=== PATIENT | male | born 1955 | race Caucasian/White ===

== ENCOUNTER 2018-09-09 19:23 | Emergency (ER) | payer BC, SELFPAY ==
[2018-09-09 19:24] VITALS: BP 148/23; PULSE 68; RESP 14; TEMP 36.9; O2SAT 96; BMI 22.0
--- NOTE | 2018-09-09 19:40 | RAD_ITS ---
STUDY: X-RAY - LEFT HAND REASON FOR EXAM: Male, 63 years old. Pain. Fall. TECHNIQUE: 3 view(s) of the hand. COMPARISON: None. FINDINGS: Normal radiocarpal articulation. Normal distal radioulnar joint. Normal visualized carpal bones. Normal carpal articulations There is degenerative arthrosis of the carpometacarpal (CMC) articulation of the thumb. Normal second through fifth carpometacarpal joints. There is a mildly displaced fracture of base of fifth metacarpal. Arthrosis of the metacarpophalangeal joint of the thumb. Normal interphalangeal joint of the thumb. Normal proximal and distal phalanges of the thumb. Normal metacarpophalangeal joints of the second through fifth fingers. Normal proximal and distal interphalangeal joints of the second through fifth fingers. Normal phalanges of the second through fifth fingers. The soft tissue structures are unremarkable. RAD/Hand Min 3 Views IMPRESSION: Fifth metacarpal fracture. Electronically Signed: Lloyd Brown MD at 20:10 EDT , Service support ,
--- NOTE | 2018-09-09 20:00 | RAD_ITS ---
STUDY: X-RAY - RIGHT HAND REASON FOR EXAM: Male, 63 years old. Pain. TECHNIQUE: 4 view(s) of the hand. COMPARISON: None. FINDINGS: There is joint space narrowing of the radiocarpal articulation consistent with degenerative arthrosis. Widening of the distal radioulnar joint. There is healed distal ulna fracture. Normal visualized carpal bones. Normal carpal articulations There is degenerative arthrosis of the carpometacarpal (CMC) articulation of the thumb. Normal second through fifth carpometacarpal joints. There is angulation with fracture at the base of the fifth metacarpal. Normal metacarpophalangeal joint of the thumb. Normal interphalangeal joint of the thumb. Normal proximal and distal phalanges of the thumb. Normal metacarpophalangeal joints of the second through fifth fingers. Normal proximal and distal interphalangeal joints of the second through fifth fingers. Normal phalanges of the second through fifth fingers. The soft tissue structures are unremarkable. RAD/Hand Min 3 Views IMPRESSION: Fifth metacarpal fracture. Healed fracture of the distal ulna. Electronically Signed: Lloyd Brown MD at 20:15 EDT , Service support ,
[2018-09-09 22:00] VITALS: BP 143/94; PULSE 78; RESP 16; O2SAT 97
--- NOTE | 2018-09-09 23:13 | ED.DCSUM_ITS ---
- ER Visit Summary Date of Service: 09/09/18 Chief Complaint: Fall History of Present Illness: The patient is a 63 M who presents with fall that occurred today. Patient states she has a history of Parkinson's disease and falls frequently. Patient fell onto both hands. Patient states that pain in his right hand radiates into his right forearm. Patient hit his head but denies any loss of consciousness. Patient is not on any anticoagulants. Patient does admit to a mild frontal headache. Patient patient denies any nausea or vomiting. She denies any paresthesias or weakness. Patient denies any other injuries. Physical Examination: Vital signs are stable. Patient is afebrile. Patient is in no acute distress. Musculoskeletal exam reveals tenderness, edema, and ecchymosis over the fifth metacarpal of the left hand. There is also tenderness over the fifth metacarpal of the right hand and right forearm. There is no edema or ecchymosis noted over this hand or forearm. Radial pulses are equal bilateral. Sensation was intact to light touch in all digits. Capillary refill was less than 2 seconds in all digits. Patient has some chorea movements in both upper extremities. Skin is warm and dry. There are abrasions over the nose and upper lip. There are multiple dental caries. There are dental fractures of the upper incisors. Oropharynx is clear. Neck is supple. Trachea is midline. There is no JVD noted. Test Results: X-rays of both hands were obtained. There are fractures of the fifth metacarpals bilaterally at the bases. The left hand is more displaced than the right. O Emergency Department Course and Treatment: Patient was placed in an ulnar gutter splint on the left. Patient was placed in a Velcro wrist splint on the right. Patient was instructed to follow-up with his orthopedic surgeon at the [facility] in 3 to 5 days. Patient and family understood and were agreeable with the plan. All questions were answered. Disposition: Discharge home Impression: 1. Bilateral fifth metacarpal fractures 2. Facial abrasions This note was generated with [employer] dictation software. It may contain incorrect words, spelling, and punctuation that were not noted in review of the chart prior to signing ED Disposition - Plan for ED Patient: Disposition: Home or Assisted Living Diagnosis: Fracture of fifth metacarpal bone of left hand, Fracture of fifth metacarpal bone of right hand, Facial abrasion Instructions: ED Fx Hand Closed Referrals: Care Physician,No Primary [Primary Care Provider] -
[2018-09-09 23:31] VITALS: PULSE 79; RESP 22; O2SAT 98
--- NOTE | 2018-09-09 23:32 | ED.RN ---
THIS NURSE REVIEWED D/C INSTRUCTIONS WITH PT AND VISITORS. ALL VERBALIZED UNDERSTANDING OF INSTRUCTIONS. PT DENIES FURTHER NEEDS OR QUESTIONS AT THIS TIME. PT ASSISTED TO VEHICLE VIA W/C
== END 2018-09-09 23:33 | disposition home or self-care (01) ==
PROVIDERS: Emergency Provider Emergency Medicine
DX: S62.346A Nondisplaced fracture of base of fifth metacarpal bone, right hand, initial encounter for closed fracture (principal); S62.317A Displaced fracture of base of fifth metacarpal bone, left hand, initial encounter for closed fracture; S00.31XA Abrasion of nose, initial encounter; S00.511A Abrasion of lip, initial encounter; G20 Parkinson's disease; R29.6 Repeated falls; Z91.81 History of falling; W18.30XA Fall on same level, unspecified, initial encounter; Y93.89 Activity, other specified; Y92.009 Unspecified place in unspecified non-institutional (private) residence as the place of occurrence of the external cause; Y99.8 Other external cause status
CPT/HCPCS: 73130; 99283

== ENCOUNTER 2018-10-13 20:55 | Emergency (ER) | payer MEDICARE, SELFPAY ==
[2018-10-13 20:57] VITALS: PULSE 63; RESP 16; TEMP 36.9; O2SAT 95; BMI 22.0
--- NOTE | 2018-10-13 22:15 | RAD_ITS ---
HISTORY: PPainRAD - Ribs EXAMINATION/TECHNIQUE: XR Ribs Unilateral W/ PA Chest Min 3 Views: Left COMPARISON: June 22, 2016 FINDINGS: LINES/DEVICES: None. LUNGS: No consolidation, edema or effusion. No pneumothorax. MEDIASTINUM AND CARDIOVASCULAR STRUCTURES: Cardiac silhouette not enlarged. Central airways and mediastinal contour are unremarkable. RIBS AND OSSEOUS STRUCTURES: The anterior margin of the T9 rib is slightly irregular consistent with a nondisplaced fracture RAD/Ribs Uni Min 3V w/PA Chest IMPRESSION: Anterior left T9 rib fracture. at 1735 Reported and signed by: Jree Vieyra MD Electronically Signed: Jere Vieyra MD at 22:44 EDT Tel , Service support ,
[2018-10-13] MEDS: Ibuprofen 600 MG Tablet PO (22:25)
--- NOTE | 2018-10-13 22:54 | ED.VIS.GEN ---
History of Present Illness Chief Complaint: Chest Other Informant: Patient Onset: Yesterday Narrative: Pain left anterior rib since yesterday. Denies trauma. Denies cough. History of rib fracture in the past. Denies fever or rash. Denies history of kidney injury or gastric ulcers. Prior similar symptoms: Yes Past Medical History - Allergies and Home Meds Allergies/Adverse Reactions: Allergies No Known Allergies Allergy (Verified 06/22/16 20:34) Primary Care Physician: Care Physician,No Primary [Primary Care Provider] - Smoking Status: Never smoker - Family History Maternal Family History: Reports: No pertinent history Review of Systems General: Denies: Chills, Fever, Sweats Eyes: Denies: Visual changes - bilaterally, Diplopia ENT: Denies: Rhinorrhea, Sore throat Cardiovascular: Denies: Chest pain, Palpitations Respiratory: Denies: Dyspnea, Cough, Dyspnea on exertion Gastrointestinal: Denies: Abdominal pain, Nausea, Vomiting, Diarrhea, Melena, Hematochezia Genitourinary: Denies: Dysuria, Hematuria, Frequency Musculoskeletal: Denies: Back pain, Extremity Pain Skin: Denies: Rash, Wounds Neurological: Denies: Headache, Weakness, Numbness Physical Exam Vital Signs/Narrative: Vital Signs Temp Pulse Resp Pulse Ox 10/13/18 20:57 98.4 F 63 16 95 Inital Vital Signs reviewed: Yes General: Well nourished, Well developed, No Acute Distress Head: Normocephalic, Atraumatic Eyes: Perrl, EOMI ENT: Moist mucous membranes, No rhinorrhea Neck: Supple, Nontender Cardiovascular: Regular rate, Regular rhythm, No murmurs Respiratory: No distress, CTA bilaterally, Chest nontender, Chest tenderness, - - Tender palpation left anterior ribs with no crepitus. Symmetric breath sounds. No rash. Abdomen: Soft, Nontender, Nondistended, Normal bowel sounds Back: Nontender, Normal Inspection Extremities: Nontender, No edema Skin: Normal color, No rash Neurological: Alert, Oriented x3, Cranial nerves II-XII grossly intact, Normal Strength, Normal Sensation Psychological: Normal affect, Normal Mood Diagnostic/Tx/Re-eval Left rib series: Nondisplaced anterior ninth rib fracture - Medical Decision Making Patient treated with Motrin, x-rays obtained nondisplaced ninth rib fracture. Denies any trauma or cough. Discussed symptomatic treatment with continued NSAIDs as needed. Discussed taking deep breaths. Follow-up with his PCP. All questions were answered. ED Disposition - Plan for ED Patient: Disposition: Home or Assisted Living Diagnosis: Left rib fracture Instructions: ED Fx Rib Prescriptions: Ibuprofen 600 mg PO Q6H PRN PRN #30 tablet PRN Reason: Pain Referrals: Care Physician,No Primary [Primary Care Provider] - 5-7 Days Additional Instructions: Left nondisplaced anterior ninth rib fracture.
[2018-10-13 23:13] VITALS: BP 128/76; PULSE 83; RESP 20; O2SAT 98
== END 2018-10-13 23:14 | disposition home or self-care (01) ==
PROVIDERS: Emergency Provider Emergency Medicine
DX: S22.32XA Fracture of one rib, left side, initial encounter for closed fracture (principal); X58.XXXA Exposure to other specified factors, initial encounter; Y93.89 Activity, other specified; Y92.89 Other specified places as the place of occurrence of the external cause; Y99.8 Other external cause status
CPT/HCPCS: 71101; 99283

== ENCOUNTER 2018-12-16 14:42 | Emergency (ER) | payer MEDICARE, SELFPAY ==
[2018-12-16 14:44] VITALS: BP 140/95; PULSE 52; RESP 16; TEMP 36.8; O2SAT 94; BMI 21.6
--- NOTE | 2018-12-16 15:31 | ED.VISSUMM ---
- ER Visit Summary Date of Service: 12/16/18 Chief Complaint: Neck pain History of Present Illness: The patient is a 63 M with right-sided neck pain for 3 weeks. Denies any inciting injury. Worse with movement. Nothing seems to make it better. No associated neurologic symptoms. No chest pain or shortness of breath. No history of this. No spine pain. No rashes. Physical Examination: Afebrile and vital signs unremarkable. Head and neck unremarkable. Right trapezius tender to palpation. Right arm unremarkable. Heart regular. Lungs clear. Skin appears normal. Test Results: None indicated Emergency Department Course and Treatment: Patient has a right trapezius myofascial pain. He was treated with naproxen and Flexeril. Follow-up with primary care. Treatment Plan: Disposition: Discharge Impression: 1. Right trapezius pain This note was generated with [employer] dictation software. It may contain incorrect words, spelling, and punctuation that were not noted in review of the chart prior to signing ED Disposition - Plan for ED Patient: Referrals: Care Physician,No Primary [Primary Care Provider] -
--- NOTE | 2018-12-16 15:33 | ED.DEP ---
ED Disposition - Plan for ED Patient: Instructions: BACK SPASM, No Trauma Prescriptions: cycloBENZAPRine HCl [Flexeril] 10 mg PO TID PRN #20 tab PRN Reason: Muscle Spasm Prescription Printed Naproxen [Naprosyn] 500 mg PO BID PRN #20 tab Prescription Printed Referrals: Care Physician,No Primary [Primary Care Provider] -
[2018-12-16] MEDS: Naproxen 500 MG Tablet PO (15:38)
[2018-12-16] MEDS: cycloBENZAPRine HCl 10 MG Tablet PO (15:38)
== END 2018-12-16 15:57 | disposition home or self-care (01) ==
PROVIDERS: Emergency Provider Emergency Medicine
DX: M79.18 Myalgia, other site (principal); G20 Parkinson's disease
CPT/HCPCS: 99283

== ENCOUNTER 2018-12-25 19:44 | Emergency (ER) | payer MEDICARE, SELFPAY ==
[2018-12-25 19:46] VITALS: BP 145/76; PULSE 80; RESP 18; TEMP 36.8; O2SAT 97; BMI 21.6
--- NOTE | 2018-12-25 20:10 | CT_ITS ---
STUDY: CT CERVICAL SPINE WITHOUT CONTRAST REASON FOR EXAM: Male, 63 years old. Right-sided neck pain RADIATION DOSAGE (If Supplied By Facility): CTDIvol = ( 9.39 ) mGy, DLP = ( 203.58 ) mGycm TECHNIQUE: High resolution transaxial imaging was performed without contrast material. Sagittal and coronal images were reconstructed. Individualized dose optimization techniques were used for this CT. COMPARISON: March 06, 2014 cervical spine radiograph FINDINGS: Mild spondylosis. Normal craniovertebral junction. Normal anterior atlantoaxial articulation. Normal odontoid process. Normal cervical lordosis. Normal vertebral bodies and posterior osseous elements. C2-3: Normal endplates. Normal disc height and morphology. Normal central canal and intervertebral neuroforamina. C3-4: Normal endplates. Normal disc height and morphology. Normal central canal and intervertebral neuroforamina. C4-5: Normal endplates. Normal disc height and morphology. Normal central canal and intervertebral neuroforamina. C5-6: Normal endplates. Normal disc height and morphology. Normal central canal and intervertebral neuroforamina. C6-7: Normal endplates. Normal disc height and morphology. Normal central canal and intervertebral neuroforamina. C7-T1: Normal endplates. Normal disc height and morphology. Normal central canal and intervertebral neuroforamina. Normal visualized soft tissue structures. CT/Spine Cervical without Contras IMPRESSION: No fracture Electronically Signed: Jnui Aguero MD at 20:35 EDT , Service support ,
--- NOTE | 2018-12-25 20:41 | ED.VISSUMM ---
- ER Visit Summary Date of Service: 12/25/18 Chief Complaint: Neck pain History of Present Illness: The patient is a 63 M who presents with neck pain that has been getting worse over the past 3 to 4 weeks. Patient denies any trauma or injury. Patient states pain is worse over the right paraspinal area. Patient describes the pain as sharp. Patient states the pain is worse when he bends his neck to the right. Patient states he was given muscle relaxers in the past which seemed to help. Patient states she is also given pain patches in the past which seemed to help. Patient denies any radiation of the pain. Patient denies any paresthesias or weakness. Patient admits to some nausea but denies any vomiting. Patient also admits to mild headache. Physical Examination: Vital signs are stable. Patient is afebrile. Patient is in no acute distress. Musculoskeletal exam reveals tenderness over the right cervical paraspinal muscles. There is some mild midline tenderness. There is no bony crepitance or step-off. There is no tenderness over the clavicle or AC joint. Range of motion of the cervical spine was limited in right side bending and right rotation secondary to pain. Strength is 5/5 bilateral knee upper and lower extremities. There are no sensory deficits noted. Test Results: CT scan of the cervical spine was obtained. There is no acute fracture or spondylolisthesis noted. This was interpreted by the radiologist and myself. Emergency Department Course and Treatment: Patient was given another prescription for Flexeril. Patient was instructed to follow-up with his primary care physician in 5 to 7 days for reevaluation. Patient understood and was agreeable with the plan. All questions were answered. Disposition: Discharge home Impression: Acute cervical strain This note was generated with [employer] dictation software. It may contain incorrect words, spelling, and punctuation that were not noted in review of the chart prior to signing ED Disposition - Plan for ED Patient: Disposition: Home or Assisted Living Diagnosis: Acute cervical myofascial strain Instructions: Neck Sprain/Strain Prescriptions: cycloBENZAPRine HCl [Flexeril] 10 mg PO QHS PRN PRN #10 tab PRN Reason: Muscle Spasm Prescription Printed Referrals: Care Physician,No Primary [Primary Care Provider] - 5-7 Days
[2018-12-25 20:50] VITALS: BP 141/70; PULSE 80; RESP 14; O2SAT 98
== END 2018-12-25 21:00 | disposition home or self-care (01) ==
PROVIDERS: Emergency Provider Emergency Medicine
DX: S16.1XXA Strain of muscle, fascia and tendon at neck level, initial encounter (principal); G20 Parkinson's disease; X58.XXXA Exposure to other specified factors, initial encounter; Y93.89 Activity, other specified; Y92.89 Other specified places as the place of occurrence of the external cause; Y99.8 Other external cause status
CPT/HCPCS: 72125; 99283

== ENCOUNTER 2023-06-10 18:10 | Emergency (ER) | payer MEDICARE, SELFPAY ==
[2023-06-10 18:12] VITALS: BP 146/101; PULSE 104; RESP 18; TEMP 36.4; O2SAT 100
[2023-06-10 22:13] VITALS: BMI 23.1
[2023-06-10 22:29] VITALS: BP 161/98
--- OUTSIDE RECORDS SUMMARY | 2023-06-10 22:45 | XMS RPT_ITS | CCD ---
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 Billing Therapeutic Exercise Treatment Minutes: 41 Skilled Treatment Time Minutes (timed and untimed codes): 41 Total Session Time (minutes): 41 Session Start Time : 1449 Session Stop Time : 1530 Aaron Atkinson, SPT I attest that I was present, not working on other tasks, and directing the student during this visit. I have reviewed and agree with the above documentation of this student. Savanah Kern, PT, DPT [facility] 06-03-2023 Note HNO ID: [id number] Author: CARMENZA HAM CCC-WIRE BOUND BOX MACHINE HELPER Service: ? 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 BOX MACHINE HELPER Recommendations: Outpatient Speech Therapy Results and Recommendations Discussed With: Patient PLAN: Planned Interventions, Frequency, and Duration: Planned Treatment Interventions: Dysarthria/Apraxia Reduction Training (17243, 04137), Voice Training (54041), Patient / Caregiver Education/ Training Current Frequency: 1x/week Duration: 6 weeks PLAN FOR NEXT VISIT: respiratory support exercises, oral motor exercises, training in use of compensatory strategies for increased speech/voice abilities SUBJECTIVE: Patient is accompanied to therapy by his brother who chooses to wait in lobby for session. -Patient admits to not diligently practicing speech/voice exercises at home, reports 'I do it here and there. Sometimes' OBJECTIVE: MEASURES WITH LEVEL OF FUNCTION: Professional training and skilled instructions were provided as follows: Voicing Hygiene -Vocal Function/respiratory training -sustaining vowel sounds a,oh, oo, aw-maximum phonation time 12 seconds (7-12 seconds) -respiratory training including counting on one breath-moderate visual cues, demonstration and verbal cues provided to increase accuracy with completing task -Demonstration/instruction provided by ST to maximize pt ability to complete labial seal during inhalation and open mouth exhalation to maximize volume/voice abilities -Focus on use of crisp movement of articulators on endings of words, diaphragmatic breathing, words in phrases/sentences to maximize speech clarity provided by ST via demonstration/instruction-Patient demonstrating slightly increased ability to self monitor and implement strategies as exercises are completed -Education provided by re: importance of compliance with HEP to maximize carryover of techniques targeted in speech therapy; ST advises pt to make exercises part of his routine at home to encourage use of strategies as part of a habitual behavior for increased functional communication. Speech/Voice/Language Speech Production: Within Functional Limits Except Dysarthria: Blended Word Boundaries, Decreased Intelligibility, Phonation/Respiration Incoordination, Intelligibility Phrase, Intelligibility Word Intelligibility - Word (%): 80 Intelligibility - Phrase (%): 75 Intelligibility - Sentence (%): 70 Sustained ?ah? phonation (seconds) : 13 Maximum Phonation Time (seconds): 13 Pitch Range: limited ability to vary loudness, limited pitch Vocal Quality: Wet / Moist TREATMENT: Speech/Language Therapy (61390): Skilled Intervention: Educated and instructed patient on compensatory strategies for improving speech intelligibility at word level (1-3 syllable) , at phrase level , and at sentence level Provided verbal and visual cues in diaphragmatic breathing to support adequate breath support for phonation. Current Home Program: respiratory support exercises Billing: Speech Treatment (77230) Total time / Length of visit: 35 minutes Session Start Time : 1230 Session Stop Time : 1305 Carmenza Ham CCC-WIRE BOUND BOX MACHINE HELPER [facility] 05-29-2023 Note HNO ID: [id number] Author: AISHA TELLES, PT, DPT Service: ? Author Type: Physical Therapist Type: Progress Notes Filed: 05/29/2023 17:44 Note Text: Episode Visit Count: 1 Therapist That Will Accept/Oversee The Plan Of Care: aisha Telles Start of Care Date: 01/30/23 Onset Date: 08/18/21 Plan of Care Certification Date: 03/31/23 Next Certification Due Date: 06/07/23 Patient Identified by Name and Date of : Yes REHABILITATION AND SPORTS THERAPY PHYSICAL THERAPY PROGRESS REPORT PLAN OF CARE UPDATE: Assessment: Hector Csatorena demonstrates significant improvement in rising from a chair . He has progressed toward goals. Patient continues to present with impairments in ADL's, balance, coordination, flexibility, gait, overall function, posture, and range of motion that interfere with balance and gait . Current prognosis is Fair due to: clinical presentation, multiple co- morbidities, advanced age, chronic nature of impairments . He will benefit from continued skilled therapy services to meet the updated goals for this plan of care as noted below. Goals for Episode of Care: updated 05/08/2023 Get a USTEP walker for better gait - thinking about getting a rollator Demonstrate neutral cervical posture without needing verbal cues - progressing No reported falls from 01/30/2023- one fall since starting therapy Powell in home exercise program. - progressing Be able to get 11 sit <> stands from chair in 30 seconds -Progressing TUG to 15 seconds with Rolator -Progressing Patient Goals: stabalize walking Planned Interventions, Frequency, and Duration: 1x/week, 3 weeks Total Number of Visits Planned: 3 Patient to be seen for Therapeutic exercise (63179), Neuromuscular re-education (94527), Manual therapy (27364), Therapeutic activities (29847), Self-long-term management (40277), Gait Training (72088), Patient/Family/Caregiver Education, Body Mechanics Training, Functional training, General Conditioning, Group Therapy (07635) PLAN FOR NEXT VISIT: PWR moves, gait training with rollator, check on U-Step coverage. MOre visists scheduled SUBJECTIVE: No falls, thom busy and homeowkr exercises done less. sister had multiple strokes. Pain: Pain Pain Level: 3 Pain Location: Back Description: Aching Frequency: Continuous Post Treatment Pain Post Treatment Pain Level: No Change PROMIS Scales T-scores: mean of general population = 50. 5 points is clinically meaningfully difference Percentiles provide an indication of how the patient's score ranks in relation to the general population. Higher percentile rankings indicate better function/quality of life. 50th percentile is the average of the general population and indicates half of respondents had a worse score. OBJECTIVE MEASURES WITH LEVEL OF FUNCTION: During the session patient complained of lightheadedness and vitals were checked. Demonstrated orthostatics between sitting and standing postures. Checked again and BP issue resolved but Pt still complained of lightheadedness. Rest taken patient advised to follow up with primary care and/or urgent care if any new symptoms present. Functional Performance Test Results 30 Second Chair Stand Test: 9 reps 5 Times Sit to Stand Test : 11 sec Timed Up and Go (sec): 11.23 sec (no device) TREATMENT: Therapeutic Exercise: 3: reassessment with disucssion about goals 10: foot taps on step x 10 B alternating (patient has fear and difficulty with exercise) 11: nu step seat 8 level 6 x <40 for 8 minutes, Skilled Intervention: Patient was educated in proper exercise technique and purpose for exercises. Skilled judgment was used in selection of appropriate interventions. Additional time necessary for foot taps due to Blood pressure and lightheadedness issues. Neuromuscular Re-Education: 9: Education on BP and activity, orthostatic hypotension Skilled Intervention: Ensured patient safety with use of Gait belt during session, checking of vitals. Patient education as noted. Billing Therapeutic Exercise Treatment Minutes: 23 Neuromuscular Re-Education Treatment Minutes: 20 Skilled Treatment Time Minutes (timed and untimed codes): 43 Total Session Time (minutes): 43 Session Start Time : 1410 Session Stop Time : 1453 Aaron Atkinson PT [facility] 05-22-2023 Note HNO ID: [id number] Author: AISHA TELLES PT, DPT Service: ? Author Type: Physical Therapist Type: Progress Notes Filed: 05/22/2023 18:34 Note Text: Episode Visit Count: 4 Therapist That Will Accept/Oversee The Plan Of Care: aisha Telles Start of Care Date: 01/30/23 Onset Date: 08/18/21 Plan of Care Certification Date: 03/31/23 Next Certification Due Date: 06/07/23 Patient Identified by Name and Date of : Yes REHABILITATION AND SPORTS THERAPY PHYSICAL THERAPY TREATMENT NOTE ASSESSMENT: Hector Castorena tolerated the session with no issues. He demonstrated difficulty with weight shifting with right shoulder pain and needs cues for slower meliton with ambulation. Therapist did fill out coverage questionnaire for USTEP walker The patient will continue to benefit from ongoing skilled physical therapy to progress toward set goals. PLAN FOR NEXT VISIT: U step coverage?? continue PWR moves SUBJECTIVE: No falls reported. Pain: Pain Pain Level: 3 Pain Location: (low back) Post Treatment Pain Post Treatment Pain Level: No Change OBJECTIVE MEASURES WITH LEVEL OF FUNCTION: Gait Gait Device: Rollator Gait Observation: did well with rollator, does demonstrate supination on left foot today and needs cues for slower meliton when he speeds up, GB and CGA TREATMENT: Therapeutic Exercise: 1: HS stretch seated 2 x 20 seconds B 2: DKTC 2 x 20 seconds 11: nu step seat 8 level 6 x 3 minutes > 80 and 3 minutes <40 minutes 12: HLTR x 20 Skilled Intervention: Patient was educated in proper exercise technique and purpose for exercises. Skilled judgment was used in selection of appropriate interventions. Correct performance of therapeutic exercises was facilitated with verbal and visual cuing. Neuromuscular Re-Education: 1: PWR sitting x 10 sit <> stands with cues for posture and not touching mat with posterior leg (weight shift forward), twisting with overpressure x 5, weight shift x 5, stepping x 5 B Skilled Intervention: Skilled judgment used to assess appropriate program for balance and coordination activity. Education in proprioceptive/kinesthetic awareness during sitting and standing. Ensured patient safety with use of CG and GB Gait Trainin: ambulation with rollator for 4 laps with cues for slowing meliton with CGA 2: filled out form for [employer] to check with insurance for coverage Skilled Intervention: Patient was provided contact guard assistance during pre-gait/gait training to prevent falls and insure safety. Facilitated proper gait cycle with the use of verbal cues for correction of gait deviations identified in the objective section above. Gait belt utilized during session for safety. Billing Therapeutic Exercise Treatment Minutes: 20 Neuromuscular Re-Education Treatment Minutes: 15 Gait Training Treatment Minutes: 10 Skilled Treatment Time Minutes (timed and untimed codes): 40 Total Session Time (minutes): 40 Session Start Time : 1720 Session Stop Time : 1800 Aisha Telles PT, DPT [facility] 05-20-2023 Note HNO ID: [id number] Author: CARMENZA HAM CCC-WIRE BOUND BOX MACHINE HELPER Service: ? Author Type: Speech Language Pathologist Type: Progress Notes Filed: 05/20/2023 14:47 Note Text: Episode Visit Count: 1 Therapist That Will Accept/Oversee The Plan Of Care: Martinez Start of Care Date: 05/20/23 Onset Date: 09/08/16 Plan of Care Certification Date: 05/20/23 Next Certification Due Date: 07/19/23 Patient Identified by Name and Date of : Yes [facility]IL[facility] THERAP[facility] SPEECH and VOICE EVALUATION PLAN OF CARE: Impression: Communication deficits identified: Dysarthria of speech, Voice disorder RECOMMENDATION: WIRE BOUND BOX MACHINE HELPER Recommendations: Outpatient Speech Therapy Results and Recommendations Discussed With: Patient Prognosis: Good Good: positive past response to therapy, good support system/ coping skills Goals for Episode of Care: created on 05/20/2023 through 06/24/23 DYSARTHRIA GOALS Improve speech intelligibility at sentence and conversation level to 95+% intelligibility with minimal cues. Self-discriminate between intelligible and unintelligible speech with 98+% effectiveness. All goals to target the patient's overall ability to facilitate functional communication of ADL medical / social needs. VOICE GOALS Improve maximum phonation time in order to sustain ah for 19+ seconds with no cues so that patient can sustain voice for improved speech intelligibility at the conversational level. All goals to target the patient's overall ability to facilitate functional communication of ADL medical / social needs. Planned Interventions, Frequency, and Duration: Planned Treatment Interventions: Dysarthria/Apraxia Reduction Training (49548, 25149), Voice Training (33709), Patient / Caregiver Education/ Training Current Frequency: 1x/week Duration: 6 weeks PLAN FOR NEXT VISIT: oral motor exercises; Patient demonstrates good understanding of plan of care and treatment. The above goals and plan of care were discussed and agreed upon by patient/family. SUBJECTIVE: Hector Castorena is a 68 year old male seen today for a diagnostic. Endorses dysarthria/slurred speech 'most of the time'. Patient Goals: 'To be able to talk better and have people understand what I am saying-especially on the telephone'-Patient has had speech therapy in the past; has not been seen since 09/2021, reports due to insurance coverage -endorses speech is worse certain times of the year, especially in the winter time-reports seems to vary; -reports reduced voice never came back fully after deep brain stimulator placement 09/08/2016 -pt endorses PD symptoms in 2007 and has sustained x3 falls since then, the last one occurring several weeks ago -pt endorses sometimes his voice drops off-reports having some difficulty with shortness of breath with phonation in the past but reports not currently an issue OBJECTIVE MEASURES WITH LEVEL OF FUNCTION: Portions of the following standardized testing were utilized in the evaluation of the patient: Clinician directed non-standardized probes along with portions of standardized assessments were utilized to assess patient. . Current Status Oral Hygiene: Clear, moist oral cavity Dentition: Retains Natural Dentition, Miscellaneous Missing Teeth Current Level Of Communication: Verbal, Dysarthria Current Management Of Secretions: Poor management of oral secretions Oral Motor Exam: Within Functional Limits Except Labial Assessment: Tremors, Generalized weakness Lingual Assessment: Generalized weakness, Tremors Speech/Voice/Language Speech Production: Within Functional Limits Except Dysarthria: Blended Word Boundaries, Decreased Intelligibility, Intelligibility Word, Intelligibility Sentence, Intelligibility of Conversation Intelligibility - Word (%): 80 Intelligibility - Sentence (%): 70 Intelligibility Conversation %: 65 Voice Assessment: Yes Sustained ?ah? phonation (seconds) : 12 Maximum Phonation Time (seconds): 12 Pitch Range: limited, drops intermittently during session Vocal Quality: Wet / Moist -Patient sustains voicing on one breath as follows: 'e' 11 seconds; 'ah' 12 seconds; 'o' 9 seconds -Education provided by ST re: importance of exaggerated articulation, segmenting words into syllables, speaking at reduced rate with focus on crisp production of endings of words -ST notes pt with increased self monitoring as session progresses and attempting to self correct with use of strategies when slurred speech occurs-following education/instruction by ST COGNITIVE-LINGUISTIC SKILLS Cognition Cognitive Status: (able to follow verbal directives for participation in ST evaluation this date) Education: Education Learning Preferences: Explanation Barriers: None Learning/Educational Needs: Compensatory Strategies, Speech Skills, Home Exercise Program Education Provided: Yes, see treatment interventions for education provided Education (more content not included)... [facility] 05-08-2023 Note HNO ID: [id number] Author: Aisha Telles PT, DPT Service: ? Author Type: Physical Therapist Type: Progress Notes Filed: 05/08/2023 6:15 PM Note Text: Episode Visit Count: 5 Therapist That Will Accept/Oversee The Plan Of Care: aisha Telles Start of Care Date: 01/30/23 Onset Date: 08/18/21 Plan of Care Certification Date: 03/31/23 Next Certification Due Date: 06/07/23 Patient Identified by Name and Date of : Yes REHABILITATION AND SPORTS THERAPY PHYSICAL THERAPY PROGRESS REPORT PLAN OF CARE UPDATE: Assessment: Hector Castorena demonstrates no improvement in since last visit. Pt has not been in therapy for a couple months and reports that he has not been too compliant with his exercises, but is ready to start therapy again. New goals were added since pt has declined since last appointment. Patient continues to present with impairments in balance, flexibility, gait, and risk for falls that interfere with walking in the house, walking in the community . Current prognosis is Fair due to: clinical presentation, multiple co- morbidities, advanced age, chronic nature of impairments . He will benefit from continued skilled therapy services to meet the updated goals for this plan of care as noted below. Goals for Episode of Care: updated 05/08/2023 Get a USTEP walker for better gait - thinking about getting a rollator Demonstrate neutral cervical posture without needing verbal cues - progressing No reported falls from 01/30/2023- one fall since starting therapy [place] in home exercise program. - progressing Be able to get 11 sit <> stands from chair in 30 seconds (new goal as of 05/08/2023 ) TUG to 15 seconds with Rolator(new goal as of 05/08/2023 ) Patient Goals: stabalize walking Planned Interventions, Frequency, and Duration: 1x/week, 4 weeks Total Number of Visits Planned: 4 Patient to be seen for Therapeutic exercise (70600), Neuromuscular re-education (77687), Manual therapy (66299), Therapeutic activities (42896), Self-long-term management (00298), Gait Training (22325), Patient/Family/Caregiver Education, Body Mechanics Training, Functional training, General Conditioning, Group Therapy (28573) PLAN FOR NEXT VISIT: rollator issue?? standing PWR, posture, flexibility SUBJECTIVE: Had 1 fall since last visist. Has not been doing his HEP as well. Functional Limitations: walking in the house, walking in the community Pain: Pain Pain Level: 0 Post Treatment Pain Post Treatment Pain Level: No Change PROMIS Scales T-scores: mean of general population = 50. 5 points is clinically meaningfully difference Percentiles provide an indication of how the patient's score ranks in relation to the general population. Higher percentile rankings indicate better function/quality of life. 50th percentile is the average of the general population and indicates half of respondents had a worse score. OBJECTIVE MEASURES WITH LEVEL OF FUNCTION: LE Strength R Hip Flexion (L2): 5/5 R Knee Extension (L3): 5/5 R Knee Flexion: 4/5 R Ankle Dorsiflexion (L4): 5/5 R Ankle Plantar Flexion: 5/5 L Hip Flexion (L2): 5/5 L Knee Extension (L3): 5/5 L Knee Flexion: 4/5 L Ankle Dorsiflexion (L4): 5/5 L Ankle Plantar Flexion: 5/5 Mobility Sit To Stand: Independent, Comments (uses the back of his legs against chair, needs cues to control descent) Functional Performance Test Results Assistive Device: Rollator (usd ours) 30 Second Chair Stand Test: 8 reps 5 Times Sit to Stand Test : 17.43 sec Timed Up and Go (sec): 18.26 sec (with rollator and 11.82 without AD) TREATMENT: Therapeutic Exercise: 1: HS stretch seated 2 x 20 seconds B 2: reveiwed HEP: see [facility] 3: reassessment with disucssion abotu POC and goals 11: nu step seat 8 level 5 x 8 minutes for neuropriming, level 4 >79 spmt Skilled Intervention: Patient was educated in proper exercise technique and purpose for exercises. Skilled judgment was used in selection of appropriate interventions. Provided written instruction for home exercise program to facilitate proper performance and compliance. Correct performance of therapeutic exercises was facilitated with verbal and visual cuing. Gait Trainin: trialed rollator, does better with it and it slows his meliton down Skilled Intervention: Patient was provided contact guard assistance during pre-gait/gait training to prevent falls and insure safety. Facilitated proper gait cycle with the use of verbal cues for correction of gait deviations identified in the objective section above. Gait belt utilized during session for safety with trial of Rolator and education about how t get one. Billing Therapeutic Exercise Treatment Minutes: 34 Gait Training Treatment Minutes: 8 Total Session Time (minutes): 42 Session Start Time : 1718 Session Stop Time : 1800 Aisha Telles, PT, DPT [facility] 04-09-2023 Note HNO ID: [id number] Author: Dee Arrieta MD Service: ? Author Type: Physician Type: Progress Notes Filed: 04/14/2023 10:40 AM Note Text: [facility] - FOLLOW UP EVALUATION No referring provider defined for this encounter. I had the pleasure of seeing Mr. Castorena for follow up today. He is a 68 year old right-handed male with a history of IPD since 2008. s/p bilateral STN DBS in 2019 He is seen with brother. Subjective Previous Plan-02/17/2023 Visit: Obtain brain/cervical CT scan either today or at [facility] facility as soon as feasible Take Miralax daily Continue physical therapy and consider using Ustep walker Consult to PD specific speech therapy Follow-up in 3 months Interested in clinical research? Not currently Interval History: Mr. Castorena is a 68-year-old male presenting today for a follow-up. He is taking Miralax for constipation which has been helpful. The patient continues to have frequent falls. Recently obtain brain CT did not demonstrate subdural hematoma. The patient is not presently attending physical therapy. Parkinson's Medication Schedule - as of the start of the visit: Medications Questionnaires ALLERGIES No Known Allergies Current Outpatient Medications Medication Sig polyethylene glycol 3350 (MIRALAX) 17 gram/dose powder Take 17 g by mouth once daily. carbidopa-levodopa (SINEMET 25-100) 25-100 mg per tablet Take 1 tablet by mouth five times daily. acetaminophen (TYLENOL) 325 mg tablet Take 2 tablets by mouth every 4 hours as needed. bacitracin 500 unit/gram ointment Apply to affected area. No current facility-administered medications for this visit. Objective Vital Signs: BP 125/82 (BP Site: Left Arm, BP Position: Sitting, BP Cuff Size: Regular Adult) Pulse 72 SpO2 96% Orthostatic Vitals: None for this encounter No LMP for male patient. There is no height or weight on file to calculate BMI. General Physical Examination: General Exam General Neurological Examination: Neurological Exam Movement Disorders Scales Performed: [place] Cognitive Assessment (MoCA) Visuospatial/Executive 1 Naming 3 Attention 5 Language 3 Abstraction 2 Delayed Memory 4 Orientation 6 Education < or equal to 12 years (1 is true, 0 is false) 0 MoCA Total Score 24 Assessment and Plan: Assessment Mr. Castorena is a right-handed 68 year old year old male with IPD since 2008; S/p bilateral STN DBS in 2019. The patient is presenting for follow-up Parkinson's disease. Motor symptoms continue to be well addressed with stimulation/low-dose Sinemet but the patient continues to experience declining gait and frequent falls. The patient tried U-step walker during the office visit. The patient could ambulate with more agility and could make turns much better. U-step walker would go a long way toward fall prevention and improving the overall quality of life. I will endeavor to obtain these walker for Mr.John Ryan Castorena. The patient's cognition is holding despite 15-year history of Parkinson's disease. The patient's MoCA today was 24/30; with significant impairment of visual spatial ability. I will continue monitoring the patient's cognition. The patient will resume physical and speech therapy close to his residence (midline at [facility] facility). Follow-up in 6 months or sooner if necessary. The following are the current problems noted and addressed during this visit: S/p deep brain stimulator placement (primary encounter diagnosis) Parkinson's disease without dyskinesia, with fluctuating manifestations Abnormality of gait Plan 04/09/2023 Visit: PT/ST at [place] Continue current medications Follow-up in 6 months Interested in clinical research? Not currently Updated Movement Disorders Medication Schedule: Medications Return at or around: 10/08/23 Level of service : 35626 (40-54 min). Time spent 45 min on the day of service, which included preparing to see the patient, [id number] patient care, completing clinical documentation, obtaining and/or reviewing separately obtained history, performing a medically appropriate examination, counseling and educating the patient/family/caregiver, ordering medications, tests, or procedures, and care coordination (not separately reported). Thank you for allowing me to be part of the clinical care of this patient! I look forward to continued participation in the patient?s care with you. Please do not hesitate to call with any questions. Sincerely, Dee Arrieta MD Scribed for Dee Arrieta MD, by Sarah Neville health care / medical job titles, April 09, 2023 [facility] 04-09-2023 Instructions Dee Arrieta MD - 04/09/2023 12:30 PM EST PT/ST at [place] Continue current medications Follow-up in 6 months documented in this encounter [facility] 04-09-2023 History of Present illness Narrative [facility] - FOLLOW UP EVALUATION No referring provider defined for this encounter. I had the pleasure of seeing Mr. Castorena for follow up today. He is a 68 year old right-handed male with a history of IPD since 2007. s/p bilateral STN DBS in 2019 He is seen with brother. Subjective Previous Plan-02/17/2023 Visit: Obtain brain/cervical CT scan either today or at [facility] facility as soon as feasible Take Miralax daily Continue physical therapy and consider using Ustep walker Consult to PD specific speech therapy Follow-up in 3 months Interested in clinical research? Not currently Interval History: Mr. Castorena is a 68-year-old male presenting today for a follow-up. He is taking Miralax for constipation which has been helpful. The patient continues to have frequent falls. Recently obtain brain CT did not demonstrate subdural hematoma. The patient is not presently attending physical therapy. Parkinson's Medication Schedule - as of the start of the visit: Medications Questionnaires ALLERGIES No Known Allergies Current Outpatient Medications Medication Sig polyethylene glycol 3350 (MIRALAX) 17 gram/dose powder Take 17 g by mouth once daily. carbidopa-levodopa (SINEMET 25-100) 25-100 mg per tablet Take 1 tablet by mouth five times daily. acetaminophen (TYLENOL) 325 mg tablet Take 2 tablets by mouth every 4 hours as needed. bacitracin 500 unit/gram ointment Apply to affected area. No current facility-administered medications for this visit. Objective Vital Signs: BP 125/82 (BP Site: Left Arm, BP Position: Sitting, BP Cuff Size: Regular Adult) Pulse 72 SpO2 96% Orthostatic Vitals: None for this encounter No LMP for male patient. There is no height or weight on file to calculate BMI. General Physical Examination: General Exam General Neurological Examination: Neurological Exam Movement Disorders Scales Performed: [place] Cognitive Assessment (MoCA) Visuospatial/Executive 1 Naming 3 Attention 5 Language 3 Abstraction 2 Delayed Memory 4 Orientation 6 Education < or equal to 12 years (1 is true, 0 is false) 0 MoCA Total Score 24 Assessment and Plan: Assessment Mr. Castorena is a right-handed 68 year old year old male with IPD since 2008; S/p bilateral STN DBS in 2019. The patient is presenting for follow-up Parkinson's disease. Motor symptoms continue to be well addressed with stimulation/low-dose Sinemet but the patient continues to experience declining gait and frequent falls. The patient tried U-step walker during the office visit. The patient could ambulate with more agility and could make turns much better. U-step walker would go a long way toward fall prevention and improving the overall quality of life. I will endeavor to obtain these walker for Mr.John Ryan Castorena. The patient's cognition is holding despite 15-year history of Parkinson's disease. The patient's MoCA today was 24/30; with significant impairment of visual spatial ability. I will continue monitoring the patient's cognition. The patient will resume physical and speech therapy close to his residence (midline at [facility] facility). Follow-up in 6 months or sooner if necessary. The following are the current problems noted and addressed during this visit: S/p deep brain stimulator placement (primary encounter diagnosis) Parkinson's disease without dyskinesia, with fluctuating manifestations Abnormality of gait Plan 04/09/2023 Visit: PT/ST at [place] Continue current medications Follow-up in 6 months Interested in clinical research? Not currently Updated Movement Disorders Medication Schedule: Medications Return at or around: 10/08/23 Level of service : 07201 (40-54 min). Time spent 45 min on the day of service, which included preparing to see the patient, [id number] patient care, completing clinical documentation, obtaining and/or reviewing separately obtained history, performing a medically appropriate examination, counseling and educating the patient/family/caregiver, ordering medications, tests, or procedures, and care coordination (not separately reported). Thank you for allowing me to be part of the clinical care of this patient! I look forward to continued participation in the patient s care with you. Please do not hesitate to call with any questions. Sincerely, Dee Arrieta MD Scribed for Dee Arrieta MD, by Sarah Neville, health care / medical job titles, April 09, 2023 documented in this encounter [facility] 03-04-2023 Note HNO ID: [id number] Author: Aisha Telles, PT, DPT Service: ? Author Type: Physical Therapist Type: Progress Notes Filed: 03/04/2023 6:28 PM Note Text: Episode Visit Count: 4 Therapist That Will Accept/Oversee The Plan Of Care: aisha Telles Start of Care Date: 01/30/23 Onset Date: 08/18/21 Plan of Care Certification Date: 01/30/23 Next Certification Due Date: 03/31/23 Patient Identified by Name and Date of : Yes REHABILITATION AND SPORTS THERAPY PHYSICAL THERAPY TREATMENT NOTE ASSESSMENT: Hector Castorena tolerated the session with fatigue and expected muscle soreness. He demonstrated difficulty with stepping onto left foot (rolled foot and unable to maintain contact in neutral) and needed CGA with GB to prevent forward LOB with PWR step. The patient will continue to benefit from ongoing skilled physical therapy to progress toward set goals. PLAN FOR NEXT VISIT: upright bike, recheck SUBJECTIVE: Pt reports no recent falls. Still needs to contact company for U step walker. WEnt riding a bike for .25 miles Pain: Pain Pain Level: 3 Pain Location: Neck (shoulder left) Frequency: Continuous OBJECTIVE MEASURES WITH LEVEL OF FUNCTION: Cognition Cognition: Safety Judgement Posture / Alignment Posture: Forward head, Increased thoracic kyphosis, Rounded shoulders, Poor Movement Description Movement Impairment(s): Bradykinetic, Festination, Dyskinesia, MiniUPDRS Bradykinetic Comments: with speeking, but when cued for action, is able to demonstrate normal time (seated coordination exercises did take increased time) Festination Comments: with ambulation without AD Demonstrates: hyperextension on right knee during end phase of gait at end of session and increased supination on right ankle TREATMENT: Therapeutic Exercise: 1: HS stretch seated 2 x 15 seconds B 2: standing against wall shoulder abduction x 10 3: PWR standing moves, needed assist to facilliatate weight shift towards right x 10 reps each 4: supine pec stretch x 60 seconds 5: modified hip flexion stretch x 60 seocnds B 10: heel taps on cones x 10 B alternating 11: nu step seat 8 level 5 x 8 minutes for neuropriming 12: HLTR x 20 13: SKTC 3 x 20 seconds Skilled Intervention: Patient was educated in proper exercise technique and purpose for exercises. Skilled judgment was used in selection of appropriate interventions. Correct performance of therapeutic exercises was facilitated with verbal and visual cuing. Billing Therapeutic Exercise Treatment Minutes: 46 Total Session Time (minutes): 46 Session Start Time : 1730 Session Stop Time : 1816 Aisha Telles PT, T [facility] 03-04-2023 History of Present illness Narrative Episode Visit Count: 4 Therapist That Will Accept/Oversee The Plan Of Care: aisha Telles Start of Care Date: 01/30/23 Onset Date: 08/18/21 Plan of Care Certification Date: 01/30/23 Next Certification Due Date: 03/31/23 Patient Identified by Name and Date of : Yes REHABILITATION AND SPORTS THERAPY PHYSICAL THERAPY TREATMENT NOTE ASSESSMENT: Hector Castorena tolerated the session with fatigue and expected muscle soreness. He demonstrated difficulty with stepping onto left foot (rolled foot and unable to maintain contact in neutral) and needed CGA with GB to prevent forward LOB with PWR step. The patient will continue to benefit from ongoing skilled physical therapy to progress toward set goals. PLAN FOR NEXT VISIT: upright bike, recheck SUBJECTIVE: Pt reports no recent falls. Still needs to contact [employer] for U step walker. WEnt riding a bike for .25 miles Pain: Pain Pain Level: 3 Pain Location: Neck (shoulder left) Frequency: Continuous OBJECTIVE MEASURES WITH LEVEL OF FUNCTION: Cognition Cognition: Safety Judgement Posture / Alignment Posture: Forward head, Increased thoracic kyphosis, Rounded shoulders, Poor Movement Description Movement Impairment(s): Bradykinetic, Festination, Dyskinesia, MiniUPDRS Bradykinetic Comments: with speeking, but when cued for action, is able to demonstrate normal time (seated coordination exercises did take increased time) Festination Comments: with ambulation without AD Demonstrates: hyperextension on right knee during end phase of gait at end of session and increased supination on right ankle TREATMENT: Therapeutic Exercise: 1: HS stretch seated 2 x 15 seconds B 2: standing against wall shoulder abduction x 10 3: PWR standing moves, needed assist to facilliatate weight shift towards right x 10 reps each 4: supine pec stretch x 60 seconds 5: modified hip flexion stretch x 60 seocnds B 10: heel taps on cones x 10 B alternating 11: nu step seat 8 level 5 x 8 minutes for neuropriming 12: HLTR x 20 13: SKTC 3 x 20 seconds Skilled Intervention: Patient was educated in proper exercise technique and purpose for exercises. Skilled judgment was used in selection of appropriate interventions. Correct performance of therapeutic exercises was facilitated with verbal and visual cuing. Billing Therapeutic Exercise Treatment Minutes: 46 Total Session Time (minutes): 46 Session Start Time : 1730 Session Stop Time : 1816 Aisha Telles PT, DPT documented in this encounter [facility] 02-25-2023 Note HNO ID: [id number] Author: Aisha Telles, PT, DPT Service: ? Author Type: Physical Therapist Type: Progress Notes Filed: 02/25/2023 6:27 PM Note Text: Episode Visit Count: 3 Therapist That Will Accept/Oversee The Plan Of Care: aisha Telles Start of Care Date: 01/30/23 Onset Date: 08/18/21 Plan of Care Certification Date: 01/30/23 Next Certification Due Date: 03/31/23 Patient Identified by Name and Date of : Yes REHABILITATION AND SPORTS THERAPY PHYSICAL THERAPY TREATMENT NOTE ASSESSMENT: Hector Castorena tolerated the session with no issues. He demonstrated difficulty with gait. Therapist assisted pt in pushing his brother in the wheelchair to car for safety. The patient will continue to benefit from ongoing skilled physical therapy to progress toward set goals. PLAN FOR NEXT VISIT: standing PWR moves SUBJECTIVE: Pt reports no falls, U step walker is in the works (got a script and going to contact [employer]) Pain: Pain Pain Level: 3 Pain Location: Back, Neck Description: (tension) Frequency: Continuous Post Treatment Pain Post Treatment Pain Level: Better OBJECTIVE MEASURES WITH LEVEL OF FUNCTION: Movement Description Movement Impairment(s): Bradykinetic, Festination, Dyskinesia, MiniUPDRS Bradykinetic Comments: with speeking, but when cued for action, is able to demonstrate normal time (seated coordination exercises did take increased time) Festination Comments: with ambulation without AD TREATMENT: Therapeutic Exercise: 3: PWR seated exercises x 10 with cues and assistance for twisting and to compete for getting feet up higher than therapist with step 4: reviewed HEP (see [employer] for details) 11: nu step seat 8 level 5 x 8 minutes for neuropriming 12: HLTR x 20 13: SKTC 3 x 20 seconds Skilled Intervention: Patient was educated in proper exercise technique and purpose for exercises. Skilled judgment was used in selection of appropriate interventions. Provided written instruction for home exercise program to facilitate proper performance and compliance. Correct performance of therapeutic exercises was facilitated with verbal and visual cuing. Gait Trainin: assisted pt pushing his brother in w/c down to first floor and into the car, CGA for ambulation and cues to keep feet inside of w/c wheels when turning Skilled Intervention: Patient was provided contact guard assistance during pre-gait/gait training to prevent falls and insure safety. Facilitated proper gait cycle with the use of verbal cues for correction of gait deviations identified in the objective section above. Gait belt utilized during session for safety. Billing Therapeutic Exercise Treatment Minutes: 24 Gait Training Treatment Minutes: 15 Total Session Time (minutes): 39 Session Start Time : 1735 Session Stop Time : 1814 Aisha Telles, PT, DPT [facility] 02-25-2023 History of Present illness Narrative Episode Visit Count: 3 Therapist That Will Accept/Oversee The Plan Of Care: aisha Telles Start of Care Date: 01/30/23 Onset Date: 08/18/21 Plan of Care Certification Date: 01/30/23 Next Certification Due Date: 03/31/23 Patient Identified by Name and Date of : Yes REHABILITATION AND SPORTS THERAPY PHYSICAL THERAPY TREATMENT NOTE ASSESSMENT: Hector Castorena tolerated the session with no issues. He demonstrated difficulty with gait. Therapist assisted pt in pushing his brother in the wheelchair to car for safety. The patient will continue to benefit from ongoing skilled physical therapy to progress toward set goals. PLAN FOR NEXT VISIT: standing PWR moves SUBJECTIVE: Pt reports no falls, U step walker is in the works (got a script and going to contact company) Pain: Pain Pain Level: 3 Pain Location: Back, Neck Description: (tension) Frequency: Continuous Post Treatment Pain Post Treatment Pain Level: Better OBJECTIVE MEASURES WITH LEVEL OF FUNCTION: Movement Description Movement Impairment(s): Bradykinetic, Festination, Dyskinesia, MiniUPDRS Bradykinetic Comments: with speeking, but when cued for action, is able to demonstrate normal time (seated coordination exercises did take increased time) Festination Comments: with ambulation without AD TREATMENT: Therapeutic Exercise: 3: PWR seated exercises x 10 with cues and assistance for twisting and to compete for getting feet up higher than therapist with step 4: reviewed HEP (see [employer] for details) 11: nu step seat 8 level 5 x 8 minutes for neuropriming 12: HLTR x 20 13: SKTC 3 x 20 seconds Skilled Intervention: Patient was educated in proper exercise technique and purpose for exercises. Skilled judgment was used in selection of appropriate interventions. Provided written instruction for home exercise program to facilitate proper performance and compliance. Correct performance of therapeutic exercises was facilitated with verbal and visual cuing. Gait Trainin: assisted pt pushing his brother in w/c down to first floor and into the car, CGA for ambulation and cues to keep feet inside of w/c wheels when turning Skilled Intervention: Patient was provided contact guard assistance during pre-gait/gait training to prevent falls and insure safety. Facilitated proper gait cycle with the use of verbal cues for correction of gait deviations identified in the objective section above. Gait belt utilized during session for safety. Billing Therapeutic Exercise Treatment Minutes: 24 Gait Training Treatment Minutes: 15 Total Session Time (minutes): 39 Session Start Time : 1735 Session Stop Time : 1814 Aisha Telles PT, DPT documented in this encounter [facility] 02-18-2023 Miscellaneous Notes Order for UStep Walker sent through [employer] to [employer]. documented in this encounter [facility] 02-17-2023 Note HNO ID: [id number] Author: Dee Arrieta MD Service: ? Author Type: Physician Type: Progress Notes Filed: 02/17/2023 11:54 PM Note Text: [facility] - FOLLOW UP EVALUATION I had the pleasure of seeing Mr. Castorena for follow up today. He is a 68 year old right-handed male with a history of IPD since 2007. s/p bilateral STN DBS in 2019 He is seen with brother. Subjective Previous Plan-05/10/2022 Visit: continue same medications LSVT BIG and LOUD follow-up in 6 months Interested in clinical research? Not currently Interval History: Mr. Castorena is a 68-year-old male presenting today for a follow-up. He recently fell 12 days ago and was in the hospital for one week. He denies having confusion since falling. He denies issues with memory. He is currently in physical therapy. Parkinson's Medication Schedule - as of the start of the visit: Medications Questionnaires ALLERGIES No Known Allergies Current Outpatient Medications Medication Sig bacitracin 500 unit/gram ointment Apply to affected area. carbidopa-levodopa (SINEMET 25-100) 25-100 mg per tablet Take 1 tablet by mouth five times daily. acetaminophen (TYLENOL) 325 mg tablet Take 2 tablets by mouth every 4 hours as needed. polyethylene glycol 3350 (MIRALAX) 17 gram/dose powder Take 17 g by mouth once daily. No current facility-administered medications for this visit. Objective Vital Signs: BP 122/70 Pulse 82 Wt 64.4 kg (142 lb) BMI 21.59 kg/m? Orthostatic Vitals: None for this encounter Weight: 64.4 kg (142 lb) No LMP for male patient. Body mass index is 21.59 kg/m?. General Physical Examination: General Exam General Neurological Examination: Neurological Exam Movement Disorders Scales Performed: Assessment and Plan: Assessment Mr. Castorena is a right-handed 68 year old year old male with IPD since 2007; S/p bilateral STN DBS in 2019. The most complex problem affecting the patient's wellbeing is poor gait and frequent falls. The patient will continue with physical therapy. We agreed to try obtaining U step walker.The patient tried U-step walker during the office visit. the patient could ambulate with more agility and could make turns much better. U-step walker would go a long way toward fall prevention and improving the overall quality of life. Furthermore, the patient is greatly bothered by hypophonia. We agreed to proceed with PD-specific speech therapy (LSVT LOUD) in the community. We agreed to continue on current levodopa regimen without change. We agreed to take MiraLAX daily to forestall constipation. The patient has been to recheck did not reveal abnormalities today. We agreed to repeat brain CT scan without contrast to follow progression of subdural hematoma. The patient will get brain/cervical CT without contrast today at [facility] or in [address] [facility] facility. We agreed to schedule follow-up in 3 months. The following are the current problems noted and addressed during this visit: Spinal stenosis of cervical region (primary encounter diagnosis) Parkinson's disease without dyskinesia, with fluctuating manifestations S/p deep brain stimulator placement Abnormality of gait Plan 02/17/2023 Visit: Obtain brain/cervical CT scan either today or at [facility] facility as soon as feasible Take Miralax daily Continue physical therapy and consider using Ustep walker Consult to PD specific speech therapy Follow-up in 3 months Interested in clinical research? Not currently Updated Movement Disorders Medication Schedule: Medications Return at or around: 05/20/23 Level of service : 72038 (40-54 min). Time spent 45 min on the day of service, which included preparing to see the patient, [id number] patient care, completing clinical documentation, obtaining and/or reviewing separately obtained history, counseling and educating the patient/family/caregiver, and care coordination (not separately reported). Thank you for allowing me to be part of the clinical care of this patient! I look forward to continued participation in the patient?s care with you. Please do not hesitate to call with any questions. Sincerely, Dee Arrieta MD Scribed for Dee Arrieta MD, by Sarah Neville, health care / medical job titles, February 17, 2023 [facility] 02-17-2023 Instructions Dee Arrieta MD - 02/17/2023 5:10 PM EDT Please, obtain brain/cervical CT scan either today at the [facility] [place] or at [facility] facility as soon as feasible Please, take Miralax daily Please, continue physical therapy and consider using U-step walker Please, PD-specific speech therapy locally Please, follow-up in 3 months documented in this encounter [facility] 02-17-2023 History of Present illness Narrative [facility] - FOLLOW UP EVALUATION I had the pleasure of seeing Mr. Castorena for follow up today. He is a 68 year old right-handed male with a history of IPD since 2007. s/p bilateral STN DBS in 2019 He is seen with brother. Subjective Previous Plan-05/10/2022 Visit: continue same medications LSVT BIG and LOUD follow-up in 6 months Interested in clinical research? Not currently Interval History: Mr. Castorena is a 68-year-old male presenting today for a follow-up. He recently fell 12 days ago and was in the hospital for one week. He denies having confusion since falling. He denies issues with memory. He is currently in physical therapy. Parkinson's Medication Schedule - as of the start of the visit: Medications Questionnaires ALLERGIES No Known Allergies Current Outpatient Medications Medication Sig bacitracin 500 unit/gram ointment Apply to affected area. carbidopa-levodopa (SINEMET 25-100) 25-100 mg per tablet Take 1 tablet by mouth five times daily. acetaminophen (TYLENOL) 325 mg tablet Take 2 tablets by mouth every 4 hours as needed. polyethylene glycol 3350 (MIRALAX) 17 gram/dose powder Take 17 g by mouth once daily. No current facility-administered medications for this visit. Objective Vital Signs: BP 122/70 Pulse 82 Wt 64.4 kg (142 lb) BMI 21.59 kg/m Orthostatic Vitals: None for this encounter Weight: 64.4 kg (142 lb) No LMP for male patient. Body mass index is 21.59 kg/m . General Physical Examination: General Exam General Neurological Examination: Neurological Exam Movement Disorders Scales Performed: Assessment and Plan: Assessment Mr. Castorena is a right-handed 68 year old year old male with IPD since 2007; S/p bilateral STN DBS in 2019. The most complex problem affecting the patient's wellbeing is poor gait and frequent falls. The patient will continue with physical therapy. We agreed to try obtaining U step walker.The patient tried U-step walker during the office visit. the patient could ambulate with more agility and could make turns much better. U-step walker would go a long way toward fall prevention and improving the overall quality of life. Furthermore, the patient is greatly bothered by hypophonia. We agreed to proceed with PD-specific speech therapy (LSVT LOUD) in the community. We agreed to continue on current levodopa regimen without change. We agreed to take MiraLAX daily to forestall constipation. The patient has been to recheck did not reveal abnormalities today. We agreed to repeat brain CT scan without contrast to follow progression of subdural hematoma. The patient will get brain/cervical CT without contrast today at [facility] or in [address] [facility] facility. We agreed to schedule follow-up in 3 months. The following are the current problems noted and addressed during this visit: Spinal stenosis of cervical region (primary encounter diagnosis) Parkinson's disease without dyskinesia, with fluctuating manifestations S/p deep brain stimulator placement Abnormality of gait Plan 02/17/2023 Visit: Obtain brain/cervical CT scan either today or at [facility] facility as soon as feasible Take Miralax daily Continue physical therapy and consider using Ustep walker Consult to PD specific speech therapy Follow-up in 3 months Interested in clinical research? Not currently Updated Movement Disorders Medication Schedule: Medications Return at or around: 05/20/23 Level of service : 31279 (40-54 min). Time spent 45 min on the day of service, which included preparing to see the patient, [id number] patient care, completing clinical documentation, obtaining and/or reviewing separately obtained history, counseling and educating the patient/family/caregiver, and care coordination (not separately reported). Thank you for allowing me to be part of the clinical care of this patient! I look forward to continued participation in the patient s care with you. Please do not hesitate to call with any questions. Sincerely, Dee Arrieta MD Scribed for Dee Arrieta MD, by Sarah Neville health care / medical job titles, February 17, 2023 documented in this encounter [facility] 2023 Note HNO ID: [id number] Author: Aisha Telles, PT, DPT Service: ? Author Type: Physical Therapist Type: Progress Notes Filed: 2023 6:41 PM Note Text: Episode Visit Count: 2 Therapist That Will Accept/Oversee The Plan Of Care: aisha Telles Start of Care Date: 01/30/23 Onset Date: 08/18/21 Plan of Care Certification Date: 01/30/23 Next Certification Due Date: 03/31/23 Patient Identified by Name and Date of : Yes REHABILITATION AND SPORTS THERAPY PHYSICAL THERAPY TREATMENT NOTE ASSESSMENT: Hector Castorena tolerated the session with fatigue. He demonstrated difficulty with maintaining posture and needs repeated verbal cues about head posture and looking up. The patient will continue to benefit from ongoing skilled physical therapy to progress toward set goals. PLAN FOR NEXT VISIT:any progress on USTEP walker any progress on USTEP walker SUBJECTIVE: Pt fell 02/04/2023, fell at home and was in the hospital for ~ 7 days. Had a broken bone. Will do a reassessment today. No pain from fall at this time. Functional Limitations: walking in the house, walking in the community (getting out of a car, unable to walk more than 5 minutes before sitting down,) Pain: Pain Pain Level: 2 Pain Location: (both hands and both arms) Description: Dull Frequency: Intermittent OBJECTIVE MEASURES WITH LEVEL OF FUNCTION: Cognition Cognition: Safety Judgement Posture / Alignment Posture: Forward head, Increased thoracic kyphosis, Rounded shoulders, Poor Gait Gait: Stand By Assistance Gait Device: U-Step Walker Gait Observation: Did well with U step walker, needs cues to take longer steps and cross yellow line with toes, cues for posture TREATMENT: Therapeutic Exercise: 1: scapular retraction x 10 2: seated marching x 10 with cues for counting 3: PWR seated exercises x 10 with cues and assistance for twisting and to compete for getting feet up higher than therapist with step Skilled Intervention: Patient was educated in proper exercise technique and purpose for exercises. Skilled judgment was provided in selection of appropriate interventions. Correct performance of therapeutic exercises was facilitated with verbal, visual, and tactile cuing. Gait Trainin: ambulation 90 feet x 2 with U STEP walker (gave his caregiver informationw with step by step instructions for getting U step walker) Skilled Intervention: Patient was provided stand by assist during pre-gait/gait training to prevent falls and insure safety. Facilitated proper gait cycle with the use of verbal cues for correction of gait deviations identified in the objective section above. Gait belt utilized during session for safety. Billing Therapeutic Exercise Treatment Minutes: 30 Gait Training Treatment Minutes: 17 Skilled Treatment Time Minutes (timed and untimed codes): 47 Total Session Time (minutes): 47 Session Start Time : 1749 Session Stop Time : 1836 Aisha Telles, PT, DPT [facility] 2023 History of Present illness Narrative Episode Visit Count: 2 Therapist That Will Accept/Oversee The Plan Of Care: aisha Telles Start of Care Date: 01/30/23 Onset Date: 08/18/21 Plan of Care Certification Date: 01/30/23 Next Certification Due Date: 03/31/23 Patient Identified by Name and Date of : Yes REHABILITATION AND SPORTS THERAPY PHYSICAL THERAPY TREATMENT NOTE ASSESSMENT: Hector Castorena tolerated the session with fatigue. He demonstrated difficulty with maintaining posture and needs repeated verbal cues about head posture and looking up. The patient will continue to benefit from ongoing skilled physical therapy to progress toward set goals. PLAN FOR NEXT VISIT:any progress on USTEP walker any progress on USTEP walker SUBJECTIVE: Pt fell 02/04/2023, fell at home and was in the hospital for ~ 7 days. Had a broken bone. Will do a reassessment today. No pain from fall at this time. Functional Limitations: walking in the house, walking in the community (getting out of a car, unable to walk more than 5 minutes before sitting down,) Pain: Pain Pain Level: 2 Pain Location: (both hands and both arms) Description: Dull Frequency: Intermittent OBJECTIVE MEASURES WITH LEVEL OF FUNCTION: Cognition Cognition: Safety Judgement Posture / Alignment Posture: Forward head, Increased thoracic kyphosis, Rounded shoulders, Poor Gait Gait: Stand By Assistance Gait Device: U-Step Walker Gait Observation: Did well with U step walker, needs cues to take longer steps and cross yellow line with toes, cues for posture TREATMENT: Therapeutic Exercise: 1: scapular retraction x 10 2: seated marching x 10 with cues for counting 3: PWR seated exercises x 10 with cues and assistance for twisting and to compete for getting feet up higher than therapist with step Skilled Intervention: Patient was educated in proper exercise technique and purpose for exercises. Skilled judgment was provided in selection of appropriate interventions. Correct performance of therapeutic exercises was facilitated with verbal, visual, and tactile cuing. Gait Trainin: ambulation 90 feet x 2 with U STEP walker (gave his caregiver informationw with step by step instructions for getting U step walker) Skilled Intervention: Patient was provided stand by assist during pre-gait/gait training to prevent falls and insure safety. Facilitated proper gait cycle with the use of verbal cues for correction of gait deviations identified in the objective section above. Gait belt utilized during session for safety. Billing Therapeutic Exercise Treatment Minutes: 30 Gait Training Treatment Minutes: 17 Skilled Treatment Time Minutes (timed and untimed codes): 47 Total Session Time (minutes): 47 Session Start Time : 1749 Session Stop Time : 1836 Aisha Telles PT, DPT documented in this encounter [facility] 02-10-2023 Hospital course Narrative DISCHARGE SUMMARY Patient: Hector Castorena Date of : 1955 Site: [facility] Family Provider: Renetta Physician Admit Date: 02/04/2023 Discharge Date/Time: 02/10/23 Disposition: Home Clinical Summary Hospital Course: Hector Castorena is a 68 y.o. male patient of Renetta, Physician with a history of Parkinson disease that has a deep brain stimulator that was placed at [facility] as well as hernia repair. He presented to [facility] ED status post mechanical fall on 02/05. He was found to have the below injuries. NSX and ENT were consulted with NOM, with OP follow up. He has worked with therapies who was recommending 5-7 for 7-10 days. Recommending rehab, Hector is refusing to go to rehab facilities. Reports he will continue with OP therapies at home. His family who he lives with agrees with this discharge plan, educated on risk of discharging home and concern of safety at home at this time. Discharge Diagnoses: Traumatic subdural hematoma with loss of consciousness of 30 minutes or less (HCC) Assessment & Plan CT head with thin acute subdural hematoma along the right side of the falx, no mass effect or shift. Repeat imaging stable. Nsx follow up OP in 2 weeks. Cog eval completed Therapies - continue OP Spinal pain Assessment & Plan Thoracic and lumbar spinal pain to palpation and with range of motion - now resolved CT thoracic and lumbar negative -therapies - continue OP Open fracture of nasal bone Assessment & Plan Bilateral nasal bone fractures with small superficial laceration - bacitracin ointment to bridge of nose. -nasal spray; no atb needed -wound care - ENT f/u OP in 1 month Cervical strain Assessment & Plan Patient endorses cervical pain on palpation is baseline now and endorses bilateral upper extremity paresthesias have resolved CT cervical spine negative MRI completed - NSX reviewed; c-collar cleared - therapies - continue OP Surgeries: None Consults: Procedures Inpatient consult to Neurosurgery Inpatient consult to ENT Inpatient consult to Care Management Hospitalize Patient To : Inpatient consult to Care Management Inpatient consult to Care Management Allergies: Patient has no known allergies. Discharge Diet: Resume home diet Condition: Good Discharge Medications: Discharge Medications New Medications Details acetaminophen 325 MG tablet Commonly known as: TYLENOL Take 2 (two) tablets (650 mg total) by mouth every 4 (four) hours as needed . Quantity: 30 tablet bacitracin zinc ointment Apply topically 2 (two) times a day . Quantity: 120 g senna 8.6 mg tablet Commonly known as: SENOKOT Take 1 (one) tablet (8.6 mg total) by mouth nightly . Quantity: 30 tablet sodium chloride 0.65 % nasal spray Commonly known as: OCEAN 1 (one) spray by Each Nare route as needed . Quantity: 15 mL Medications To Continue Details carbidopa-levodopa 25-100 mg per tablet Commonly known as: SINEMET Take 1 (one) tablet by mouth 5 (five) times a day . Physician(s) Family Provider: Renetta, Physician, Phone: None Address: [facility] Follow Up: Armen Walls Jr., DO [address] [facility] [address] Follow up in 4 week(s) Jojo Lozoya MD [address] [place] [address] Follow up in 2 week(s) Patient instructions, including activity, were given to the patient/family at discharge. Please see the After Visit Summary in the electronic medical record for details. Time spent on discharge: < 30 minutes Completed by: Elizabeth Melendez CNP on 02/10/23, 11:42 AM Associated attestation - Andrew Rubio MD - 02/10/2023 12:32 PM EDT Name: Hector Castorena Admit Date and Time: 02/04/2023 11:35 PM Date of Service: 02/10/23 Please link this note as an addendum to the Resident or Trauma Advanced Practice Provider note with the day of service listed above. The patient was seen and examined by me, the attending trauma surgeon, on multidisciplinary rounds on the date of service listed above. I have reviewed the Resident or Advanced Practice Provider note with the relevant labs, studies, and sap business objects consultant notes. I have reviewed and agree with the documented history, exam, and plan of care. Stable for discharge. Please see progress note from same date. Pedro Luis Rubio MD, FACS, DABS, DABA Trauma, Acute Care Surgery, Surgical Critical Care, and Neurocritical Care documented in this encounter [facility] 02-10-2023 Hospital Discharge instructions Elizabeth Melendez CNP - 02/10/2023 11:42 AM EDT FACIAL BONE INJURY HOME CARE INSTRUCTIONS You have broken bones in your face. These may include: the bones around your eyes, nose, the cheek bones, or bones in the jaw. The bones will take weeks to fully heal and your face may be swollen or bruised. You may be asked to follow up with an Ears, Nose and Throat (ENT) specialist or Plastic Surgeon, or you may have already seen them in the hospital. Please keep this follow up appointment with them. Safety precautions: Keep your head elevated to decrease swelling. Keep the injured part of your face protected and safe until healed. Do not play any rough sports or activities. Do not blow your nose Do not use straws Comfort and Hygiene: Gently wash and dry your face. You may gently place ice on the injury for 15 to 20 minutes each hour if needed for discomfort. Put ice in a plastic bag and place a thin towel between the bag of ice and your face. Do not press hard on the broken bone. Do not sleep on the injured side of your face. No smoking, as this will prevent healing. Call the plastic surgeon, Ear Nose and Throat Doctor, or Outpatient Trauma office [phone] if you have: A fever over 101 degrees Severe headaches New numbness or tingling in your face Difficulty seeing Dizziness or passing out Trouble speaking or swallowing Call 911 if you develop difficulty breathing! Brain Injury: You have had an injury to your brain. You may have symptoms for weeks after your injury. For the first 48 hours after discharge from the hospital: Do not take any medicine that causes drowsiness or sleepiness unless it was prescribed by the Trauma or Neurosurgery Team Do not drink alcohol Do not drive or operate heavy machinery Do not operate items such as a lawnmower or power tools Have a responsible adult stay with you for the first 2 or 3 days after you go home. If they have difficulty keeping you awake or are unable to wake you up, they should call 911 right away. Call the Trauma office or Neurosurgery Office or seek medical care immediately if you develop: A fever over 101 degrees Nausea, vomiting or a stiff neck Memory loss or a hard time concentrating Pupils which are unequal in size (The black circles in the center of your eyes) Changes in your personality, such as aggression or risky behaviors Problems with sleeping, either sleeping too much or not enough You may have been asked to hold certain home medications such as anti-platelet therapy or anticoagulants (blood thinners). If so please schedule an appointment with neurosurgery and your primary care provider to discuss these medications. In conjunction with your primary care provider you may be asked to stop taking these. Trauma Office: [phone] documented in this encounter [facility] 02-10-2023 Consult note Associated Order (s): IP CONSULT TO CARE MANAGEMENT Consult addressed. Please see previous notes. [facility] 02-10-2023 Consult note Associated Order (s): IP CONSULT TO CARE MANAGEMENT Consult addressed. Please see previous notes. Speech Pathology Concussion/TBI Eval Note Hector Castorena is a 67 y.o. male with pmhx of PD s/p DBS implantation admitted after mechanical fall from standing height on 02/04/2023. Patient has headaches and cervical pain with bilateral arm paresthesia since the fall with no myelopathic symptoms. CT results showing stable small interhemispheric SDH and no acute spinal fracture were reviewed with he patient. Pt may benefit from speech therapy to address Parkinson's-related motor speech and voice deficits. Endorses prior speech therapy services in [place]. Would consider ST x2-3/week following discharge to address above. Cognitive-linguistic presentation appears consistent w/ baseline. No further acute ST indicated. Will sign off. Auditory Comprehension Severity rating: WFL Expressive Language Severity rating: WFL Motor Speech Severity ratin-75% (Moderate), baseline per pt/CG report Cognition Severity rating: WFL, baseline per pt/CG report Rancho [place]igos/Level of Cognitive Functioning Scale (1-8) rating: Rancho VIII- purposeful/appropriate Recommended Referrals: PT/OT Factors for returning to Prior Level of Function: Factors for Returning to Prior Level of Function Body Structure and Function: Musculoskeletal impairment, Neurologic impairment Explain Impairments: fall w/ interhemispheric SDH and cervical central stenosis. Hx Parkinson's Activities and Participation: Mobility limitation, Balance limitation and fall risk, ADL/IADL limitation, Communication limitation Explain Limitations: Deficits associated w/ Parkinson's Environmental Factors: Home situation, Family/caregiver support Explain Environmental Factors: Lives w/ multiple family members Personal Factors: Awareness of own capacity and performance Explain Personal Factors: Voices insight Skilled therapy needs: Skilled Therapy Needs: Are Skilled Therapy Services Needed After Discharge: No (Cognitive-linguistic intervention not indicated. 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[employer]) Living Situation: With others, Manages own medications, Manages own finances (drives occassionally) Prior Speech Deficit: Dysarthria, Per chart review, Per patient report, Prior Speech Therapy services (speech and voice deficits related to Parkinsons) Prior Language Deficit: No known previous deficits Prior Cognitive Deficit: No known previous deficits Other pertinent diagnoses affecting cog/comm/voice: Neurodegenerative disease, mTBI/concussion Baseline Assessment Subjective Impression: Alert, Cooperative, Pleasant Mood Respiratory Status: Room air Auditory Comprehension: Auditory Comp Impression-Severity Scale: WFL Commands: Within Functional Limits Identification Tasks: Within Functional Limits Yes/No Questions: Within Functional Limits Conversational Speech: Within Functional limits Expressive Language: Expressive Language Impression-Severity: WFL Primary Mode of Expression: Verbal Aphasia: None present Repetition: WFL Automatic Speech: WFL Sentence Completion: WFL Naming: WFL Narrative: WFL Cognitive-Communication: Speech Cognition Impression-Severity: WFL, baseline per pt/CG report Orientation Level: Oriented x4 Attention: Within Functional Limits Memory: Within Funtional Limits Additional Observation: Recalls medical plan of care, Uses memory strategies Verbal Problem Solving: Within Functional Limits Abstract Thinking: Within Functional Limits Safety/Judgement: Within Functional Limits Behavioral Observations: good awareness of safety precautions Insight: Good awareness of impairment, Good insight into impact of injury/deficits Task Initiation: WFL Flexibility of Thought: Within functional limits Organization: Within functional limits Concussion/TBI: Concussion: Baseline Vestibular Screening Tool: No Patient endorses: (denies acute symptoms) Patient O-Log (Orientation Log) Score - Cut off score 25 or better on two separate administrations: Orientation-Log Orientation-log: Yes City: [address]: 3 Name of Hospital: 3 Month: 3 Date: 3 Year: 3 Day of Week: 3 Clock Time: 3 Etiology / Event: 3 Pathology Deficits: 3 Orientation Log Total Score (out of 30): 30 Orientation Log 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 Repeat Orientation-Log: No Patient Cog-Log (Cognitive Log) Score - Cut off score 25 or better: Cognitive-Log Cognitive-log: Yes Date: 3 Clock Time: 3 Name of Hospital: 3 Repeat Address: 2 20 to 1: 3 Months Reversed: 3 30 Seconds: 2 Fist Edge-Palm: 1 Go / No-Go: 3 Address Recall: 2 Cognitive Log Total Score (out of 30): 25 Cognitive Log Impression: Score suggests within functional limits attention/concentration and memory. Concussion Symptom Scoring - SCAT5: Concussion Symptom Scoring SCAT5 Concussion Symptom Scoring SCAT5: No WIRE BOUND BOX MACHINE HELPER Caregiver Readiness: WIRE BOUND BOX MACHINE HELPER Caregiver Readiness Working toward discharge home: Yes WIRE BOUND BOX MACHINE HELPER Caregiver Training: Completed Who was trained?: (patient) Provided training for: Communication - completed, Cognition - completed, Energy conservation - completed, TBI/PCS - completed Caregiver response to training: Verbalizes understanding (written education provided) Speech Plan: Further acute Speech Therapy services indicated: No Past Medical History: Diagnosis Date Parkinson disease (HCC) Past Surgical History: Procedure Laterality Date DEEP BRAIN STIMULATOR PLACEMENT From [facility] HERNIA REPAIR Speech Pathology Concussion/TBI Treatment Note Total Treatment Time (Total Session Time): 36 Minutes Concussion/mTBI education: Concussion/mTBI education completed with patient; handout provided. Discussed possible concussion/mTBI symptoms, their potential interference with IADLs, the possibility of delayed onset of symptoms with an increase in patient activity, and management strategies; including rationale for a transitional approach to gradual increases in length, level and complexity of activities and/or responsibilities. Education also provided regarding the importance of prevention of future TBI and the ill effects of alcohol and illicit substance use on concussion recovery and brain health. Patient verbalized appropriate understanding of ST education and recommendations. Patient was able to independently state 3 possible concussion/mTBI symptoms to monitor for during recovery period, 3 strategy/strategies to utilize to manage symptoms, and what to do if concerns arise/persist. Concussion/TBI: Skilled Intervention/treatment: Patient education/training, Written instructions/handout provided and reviewed Patient Response to Intervention: Verbalized comprehension of presented information, Improved ability to understand / adhere to precautions For complete objective data, detailed plan of care, and education refer to: Speech Comm/Cog Eval flow sheet, as well as patient Plan of Care and Education documentation. This note stands as the current Discharge Summary upon patient discharge from the hospital or completion of Speech Pathology Plan of Care Physical Therapy PHYSICAL THERAPY EVALUATION and TREATMENT NOTE PHYSICAL THERAPY EVALUATION Skilled Therapy Needs After Discharge Anticipate Resolution of Current Assessment Limitations Including: Mechanical Barriers, Social Support Are Skilled Therapy Services Needed After Discharge: Yes Intensity of Skilled Therapy: 5 to 7 days per week Anticipated Duration of Skilled Therapy: Duration 7 - 10 days Rehab Potential: Good Outcomes Measures Prior Function - Basic Mobility Raw Score: 24 Points Prior Function - Basic Mobility % Impaired: 0% AM-PAC Basic Mobility Raw Score: 12 Points AM-PAC Basic Mobility % Impaired: 61.94% Physical Therapy Assessment Traumatic subdural hematoma with loss of consciousness of 30 minutes or less (HCC Spinal pain Open fracture of nasal bone Cervical strain History: Mr. Castorena is a 67-year-old male with past medical history of Parkinson disease that has a deep brain stimulator that was placed at [facility] as well as hernia repair that presents to [facility] ED status post mechanical fall yesterday. CT head and face note subdural hematoma as well as bilateral nasal bone fractures, CT cervical was negative and patient was transferred to [place] for tertiary trauma exam. On arrival patient states fall was witnessed, he did have a short loss of consciousness, he denies any AC\AP meds. Patient's GCS was 15 on arrival, he does have baseline tremors from his Parkinson's that he states is worse at this time because he has not had his evening medications. The following factors influence the patient's participation in the PT plan of care: Personal Factors: Age, Social Barriers Environmental Factors: Multi-level home, Steps to enter home The following co-morbidities (from this admission or prior) influence the patient's participation in this plan of care: please see H&P for details Number of History elements affecting this patient's PT plan of care: 3 or more Examination of Body Systems: The patient presents with: Musculoskeletal impairments: Strength, Functional Endurance Neurologic Impairments: Balance, Coordination, Cognition Cardiopulmonary Impairments: Activity Tolerance, Edema Integumentary Impairments: Skin Integrity Other Impairments: Psychological Health. These impairments result in limitations of Gait, Functional Transfers, Stair-Climbing, Safety, Safety Awareness, Activity Tolerance, Insight. These impairments result in restrictions of Household mobility, Community mobility. Number of Body Systems elements affecting this patient's PT plan of care: 4 or more. Clinical Presentation: The patient's clinical presentation for this PT evaluation is evolving with changing characteristics as evidenced by current PT documentation. Activity Tolerance Activity Tolerance: Tolerates 10 - 20 min activity with multiple rests Therapy Precautions Orthotic Devices: Yes Spine / Trunk / Head: Cervical Collar, at all times General Rehab Precautions: Cervical, Fall risk (2 person pivot) Balance Assessment Sitting Balance - Static: Contact guard assist Sitting Balance - Dynamic: Minimal assist Loss of Balance - Sitting Dynamic: posterior Standing Balance - Static: Contact guard assist Slip Bridge Operator - Standing Static: wheeled walker Loss of Balance- Standing Static: posterior, intermittent Standing Balance - Dynamic: Contact guard assist, 2 person (min x 1) Slip Bridge Operator - Standing Dynamic: wheeled walker Loss of Balance- Standing Dynamic: multidirectional, intermittent Bed Mobility Rolling: Moderate assist Supine to Sit: Moderate assist Sit to Supine: Moderate assist Transfers Sit to Stand: Minimal assist, 2 person assist Bed to Chair: Contact guard assist, 2 person assist Stand Pivot Transfers: Contact guard assist, 2 person assist Slip Bridge Operator: wheeled walker Gait/Locomotion Gait Assistance: (unsafe to ambulate at this time) Home Living Obtained Home Living and PLOF info from: Patient, Review of patient s medical record Unable to obtain Home Living and PLOF info on initial eval: Patient is a questionable historian Lives With: Family (2 brothers, sister, SAM, niece) Type of Home: House Home Layout: Two level, Able to live on main level with bedroom/bathroom, Performs ADLs on one level Steps to enter home: Yes Rails to enter home: None Number of stairs to enter home: 3 Bathroom Shower/Tub: Tub/shower unit, Main level Bathroom Toilet: Standard Bathroom Equipment: Grab bars in shower, Shower chair, Hand-held showerhead Mobility Equipment: Cane ADL Equipment: Sock aid, Gun Stock Checker, Long handled shoe horn Prior Level of Function Receives Help From: Family Level of Powell - Transfers/Ambulation/Mobility: Independent with functional transfers, Independent with household ambulation, Independent with community ambulation Level of Powell - ADLs: Independent with ADLs, except (Brother helps with shaving) Level of Powell - Homemaking: Independent Driving: Patient drives Vocational: Retired Subjective Impression - Prior Function: pt lives with family(brothers and sisters) in a large home. pt repors cooking for family and does on occasion use a cane PHYSICAL THERAPY TREATMENT NOTE Total Treatment Time (Total Session Time): 25 Minutes Total Timed Code Treatment Minutes: 10 Minutes Neuromuscular Reeducation Standing Balance Treatment: weight shifting left, weight shifting right, upright gaze Skilled Intervention Provided: verbal cues, tactile cues, visual cues For: necessary precautions Resulting in: improved awareness Gait Training Therapeutic Activities Bed Mobility Skilled Intervention Provided: verbal cues, tactile cues, visual cues For: attention to task, necessary precautions Resulting in: improved awareness, improved performance, improved safety Transfers Skilled Intervention Provided: verbal cues, tactile cues, visual cues, provided step by step instructions For: attention to task, initiation of task, necessary precautions Resulting in: improved awareness, improved performance, improved safety Functional Transfers (Car and/or Toilet Transfers) Therapeutic Exercises Additional Treatment Details Pt. educated on precautions, discharge planning, and mobility through verbal instruction and demonstration. Pt demonstrated understanding of education and billed 1 unit therapeutic activity for education. Past Medical History: Diagnosis Date Parkinson disease (HCC) Past Surgical History: Procedure Laterality Date DEEP BRAIN STIMULATOR PLACEMENT From [facility] HERNIA REPAIR For complete objective data, detailed plan of care and patient education refer to: PT Evaluation flowsheet, PT Evaluation and Treatment flowsheet, PT Treatment flowsheet, patient Plan of Care, Plan of Care progress note, and Patient Education. This note stands as the current Discharge Summary upon patient discharge from the hospital or completion of Physical Therapy Plan. Occupational Therapy OCCUPATIONAL THERAPY EVALUATION Dx: Traumatic subdural hematoma with LOC Spinal pain Open fx of nasal bone Cervical strain Skilled Therapy Needs After Discharge Anticipate Resolution of Current Assessment Limitations Including: Pain, Mechanical Barriers, Social Support Are Skilled Therapy Services Needed After Discharge: Yes Intensity of Skilled Therapy: 5 to 7 days per week Anticipated Duration of Skilled Therapy: Duration 7 - 10 days DME Recommendation: To be determined at next level of care Rehab Potential: Good, For goals Outcomes Measures Prior Function Daily Activity Raw Score: 23 Prior Function Daily Activity % Impaired: 15.86% AM-PAC Daily Activity Raw Score: 17 AM-PAC Daily Activity % Impaired: 50.11% Occupational Therapy Assessment The patient's current functional participation deficits are feeding, grooming, UE dressing, LE dressing, bathing, toileting, functional mobility, driving. This reduced independence will limit their life roles of premorbid level individual, family member. The patient's co morbidities do significantly affect patient performance in the above activities and roles. The performance deficits are a result of musculoskeletal, neurological impairment(s) in generalized debility including strength, balance, coordination, dexterity, acitvity tolerance, pain, safety, insight, problem solving, and knowledge deficit. The patient's family / caregiver support is a communication and outreach manager for return to prior level of function. The patient's compliance is a communication and outreach manager to return to prior level of function. During the assessment, minimal to moderate modification of task was required and several treatment options were identified in the plan of care. This consultation required expanded review of the medical and therapy history. Activity Tolerance Activity Tolerance: Tolerates 10 - 20 min activity with multiple rests Therapy Precautions Orthotic Devices: Yes Spine / Trunk / Head: Cervical Collar Weight Bearing Status: WFL General Rehab Precautions: Cervical, Fall risk Cognition Overall Cognitive Status: Within Functional Limits Arousal/Alertness: Appropriate responses to stimuli Orientation Level: Oriented to person, Oriented to place Executive functioning: Processing delay, Planning / Organizing Safety Judgment: Decreased awareness of need for safety, Decreased awareness of need for assistance Problem Solving: Assistance required to identify errors made, Assistance required to generate solutions, Assistance required to implement solutions Attention: Attends to quiet environment Hearing Status: WFL Social Interaction: Cooperative (Pt very soft spoken, difficult to understand.) UE Function Bilateral AROM is WFL. Proximal strength not assessed d/t cervical strain. Grasp is about 4/5 bilaterally. ADL Grooming: Minimal assist (Assist to open containers for oral care seated.) Lower Body Dressing: Stand by assist, Minimal assist (Don/doff bilateral socks seated in chair via figure 4 technique with SBA. Min A for standing balance for clothing management in standing.) Toileting: Minimal assist (Assist for clothing management.) Functional Mobility: Minimal assist, Adaptive equipment, Additional time Bed Mobility Not assessed d/t pt seated in chair upon OT arrival. Functional Transfers Sit to Stand: Contact guard assist, Minimal assist (from chair to FWW. Verbal cues to push up from arm rests rather than pulling on FWW.) Slip Bridge Operator: wheeled walker Additional Assessment Details Sitter present at beginning and end of OT evaluation. Pt left seated in chair, call light within reach, and alarm turned on. Home Living Obtained Home Living and PLOF info from: Patient, Review of patient s medical record Unable to obtain Home Living and PLOF info on initial eval: Patient is a questionable historian Lives With: Family (2 brothers, sister, SAM, niece) Type of Home: House Home Layout: Two level, Able to live on main level with bedroom/bathroom, Performs ADLs on one level Steps to enter home: Yes Rails to enter home: None Number of stairs to enter home: 3 Bathroom Shower/Tub: Tub/shower unit, Main level Bathroom Toilet: Standard Bathroom Equipment: Grab bars in shower, Shower chair, Hand-held showerhead Mobility Equipment: Cane ADL Equipment: Sock aid, Gun Stock Checker, Long handled shoe horn Prior Level of Function Receives Help From: Family Level of Powell - Transfers/Ambulation/Mobility: Independent with functional transfers, Independent with household ambulation, Independent with community ambulation Level of Powell - ADLs: Independent with ADLs, except (Brother helps with shaving) Level of [place] - Homemaking: Independent Driving: Patient drives (Does not drive often) Vocational: Retired Subjective Impression - Prior Function: Pt is very soft spoken and difficult to understand at times. Reports he lives in a 2 story home with multiple family members. Reports he has recently been using a cane for ambulation. Reports mod I with ADLs except for assist from brother to shave his face. Past Medical History: Diagnosis Date Parkinson disease (HCC) Past Surgical History: Procedure Laterality Date DEEP BRAIN STIMULATOR PLACEMENT From [facility] HERNIA REPAIR For complete objective data, detailed plan of care and patient education refer to: OT Evaluation flowsheet, OT Evaluation and Treatment flowsheet, OT Treatment flowsheet, patient Plan of Care, Plan of Care progress note, and Patient Education. This note stands as the current Discharge Summary upon patient discharge from the hospital or completion of Occupational Therapy Plan of Care. Associated Order(s): IP CONSULT TO CARE MANAGEMENT; IP CONSULT TO CARE MANAGEMENT Care Management Consult Note Date: 02/06/2023 Time: 9:00 AM Patient Name: Hector Castorena Date of : 1955 Reason for Consult: Discharge Needs Discharge Needs Discharge Plan: Discharging Transportation Plan: Discharge Plan Status: Consult received from [facility] if needed. Alcohol lab not drawn. Audit-C not completed by nursing at this time. Per conversation with nursing, patient was having some confusion overnight. Will check on patient status later today and see if appropriate. 1150- In to see patient. A brief conversation occurred as patient was sleepy. Patient is from home and resides with multiple family members. Patient reports his two brothers, his sister, his [id number], and niece all reside together. Patient reports the home is multi-story. Patient reports no issues managing the stairs prior. Patient reports he still drives but it is rare. Patient reports his family usually helps with rides. Patient listed on no PCP. Patient reports he does have a physician but this worker could not understand the name at this time. Patient reports no issues obtaining or affording his medications prior to admission. Began to briefly discuss discharge planning. Patient thinks he will be able to return home with family assistance. Patient encouraged to see how he does with therapy again tomorrow. Will follow up with patient to discuss discharge planning further when he is more awake and has had a chance to work with therapy again. Assessment and Background Information: Living Arrangements: Family members Caregiver Identified: Yes Caregiver's Name: Family members Support Systems: Family members Assistance Needed: Independent prior Type of Residence: Private residence Prior to Admission Home Care Services: No Patient expects to be discharged to:: Home Current Home Equipment: Cane, Walker, Tub/Shower chair Associated Order(s): IP CONSULT TO NEUROSURGERY Neurological Surgery Consultation Assessment & Plan: Hector Castorena is a 67 y.o. male with pmhx of PD s/p DBS implantation admitted after mechanical fall from standing height on 02/04/2023. Patient has headaches and cervical pain with bilateral arm paresthesia since the fall with no myelopathic symptoms. CT results showing stable small interhemispheric SDH and no acute spinal fracture were reviewed with he patient. His cervical MRI was already requested to rule-out a structural etiology for the arm paresthesia. Discussed with RN need to coordinate with the [employer] DBS circulation sales representative for performing the MRI. Can ambulate with collar, will reassess after the MRI. Subjective Chief Complaint/reason for consult: SDH History of Present Illness: Hector Castorena is a 67 y.o. male with pmhx of PD s/p DBS implantation admitted after mechanical fall from standing height on 02/04/2023. Patient had episode of LOC but no seizure. Reports increased cervical pain and bilateral circumferential paresthesia and pain in bilateral hands and forearm since the fall. No other focal neurological symptoms. Has some frontal headaches that improved since admission. Hemodynamically stable with no other complaints. Review of Systems: All other systems reviewed and negative other than HPI Objective BP (!) 156/87 (BP Location: Right arm, Patient Position: Lying) Pulse 72 Temp 97.4 F (36.3 C) (Axillary) Resp 17 SpO2 99% General Appearance: Alert, well appearing, and in no acute distress. Alert, oriented x 3. PERRL at 3mm, EOMI, V1-3 intact, face symmetric, hearing intact, palate rise symmetric, tongue midline, 5/5 trapezius. Right> left arm large amplitude tremor Pain at palpation of midline cervical and paraspinal posterior and upper thoracic spine, no step-off. Roland collar in place RUE: 4+/5 delt, 5/5 bi, 5/5 tri, 5/5 we, 5/5 wf, 5/5 director of clinical applications/int LUE: 4+/5 delt, 5/5 bi, 5/5 tri, 5/5 we, 5/5 wf, 5/5 director of clinical applications/int RLE: 5/5 hf, 5/5 ke, 5/5 df, 5/5 pf, 5/5 ehl LLE: 5/5 hf, 5/5 ke, 5/5 df, 5/5 pf, 5/5 ehl Circumferential paresthesia and pain in bilateral hands and forearm, stable Symmetric 1/4 DTRs. No Marya, no clonus, no Babinski. Head: abrasion over nasion, no active drainage, no otorrhea/rhinorrhea Eyes: PERRL, EOMI, no icterus Neck: supple, normal ROM, no meningismus CV: regular pulses, no peripheral edema, no calf tenderness Resp: no respiratory distress, no use of accessory muscle Abdomen: non-distended Musculoskeletal: normal bulk, rigidity in all 4 extremities Past Medical History: Past Medical History: Diagnosis Date Parkinson disease (HCC) Past Surgical History: Past Surgical History: Procedure Laterality Date DEEP BRAIN STIMULATOR PLACEMENT From [facility] HERNIA REPAIR Family History: History reviewed. No pertinent family history. Social History: Social History Socioeconomic History Marital status: Single Tobacco Use Smoking status: Never Smokeless tobacco: Never Substance and Sexual Activity Alcohol use: Not Currently Drug use: Never Allergies: No Known Allergies Medications: Home medications: Prior to Admission medications Medication Sig Start Date End Date Taking? Authorizing Provider carbidopa-levodopa (SINEMET) 25-100 mg per tablet Take 1 (one) tablet by mouth 5 (five) times a day . 02/01/23 Provider, MD [facility] medications bacitracin zinc Topical BID carbidopa-levodopa 1 tablet Oral 5x Daily famotidine (PEPCID) injection 20 mg Intravenous Q12H KINGSLEY sod phos di, mono-K phos mono 250 mg Oral Q6H sodium chloride (PF) 5 mL Intravenous Q8H KINGSLEY sodium chloride 0.9 % 50 mL/hr (02/05/23 0403) acetaminophen, albuterol, ondansetron OR ondansetron, Saline lock IV AND sodium chloride (PF) AND sodium chloride (PF) AND sodium chloride 0.9 % Vital Signs: Current: BP (!) 156/87 (BP Location: Right arm, Patient Position: Lying) Pulse 72 Temp 97.4 F (36.3 C) (Axillary) Resp 17 SpO2 99% Last 24 hours: Temp Av F (36.7 C) Min: 97.4 F (36.3 C) Max: 98.7 F (37.1 C) Pulse Av.3 Min: 64 Max: 105 Resp Av.1 Min: 14 Max: 23 SpO2 Av.4 % Min: 95 % Max: 99 % Labs: Lab Results Component Value Date NA 140 02/05/2023 INR 1.1 02/05/2023 HGB 14.9 02/05/2023 CREATININE 0.94 02/05/2023 WBC 9.49 02/05/2023 PLT 269 02/05/2023 Laboratory and Additional Data Reviewed: Reviewed 02/05/23 1:38 PM: Laboratory, Radiology, Cardiology, Medications, and Transcriptions Radiology: CT Head Or Brain Without Contrast Final Result 1. Stable appearance of inter hemispheric subdural hematoma as compared to the prior study. This measures 3.17 mm in thickness. 2. Stable appearance and no change in bilateral thalamic deep brain stimulators. 3. Atrophy. Workstation ID: [id number] CT Lumbar Spine Reconstructed Final Result 1. No evidence of acute traumatic abnormality in the chest, abdomen or pelvis. 2. Mild bibasilar atelectasis. 3. Thoracic degenerative disc disease and lumbar facet arthropathy without fracture or subluxation. [employer] Workstation ID: [id number] CT Thoracic Spine Reconstructed Final Result 1. No evidence of acute traumatic abnormality in the chest, abdomen or pelvis. 2. Mild bibasilar atelectasis. 3. Thoracic degenerative disc disease and lumbar facet arthropathy without fracture or subluxation. [employer] Workstation ID: [id number] CT Chest Abdomen Pelvis Without Contrast Final Result 1. No evidence of acute traumatic abnormality in the chest, abdomen or pelvis. 2. Mild bibasilar atelectasis. 3. Thoracic degenerative disc disease and lumbar facet arthropathy without fracture or subluxation. [employer] Workstation ID: [id number] MR Cervical Spine Without Contrast (Results Pending) Interpretation of Testing: I personally reviewed the head CT, CT of the cervical/thoracic/lumbar spine and agree with the interpretation(s). Stable interhemispheric SDH with no mass effect, multilevel degenerative spinal changes with no acute fracture. No severe spinal canal stenosis, no disconnection in DBS system Jojo Lozoya MD 1:38 PM 02/05/23 Associated Order(s): IP CONSULT TO ENT This is SUE Holman dictating consultation note on patient Hector Castorena Date of 1955 Date of consultation 02/05/[address] 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 Stepping out of his truck he states that he thinks that he poked his foot on the pavement step up and fell forward. Patient presented to [facility] emergency department as a trauma. During trauma evaluation patient was noted to have nasal bone fractures. ENT was consulted for evaluation. No Known Allergies Social History Substance and Sexual Activity Drug Use Never Social History Tobacco Use Smoking Status Never Smokeless Tobacco Never Social History Substance and Sexual Activity Alcohol Use Not Currently Past Medical History: Diagnosis Date Parkinson disease (HCC) Past Surgical History: Procedure Laterality Date DEEP BRAIN STIMULATOR PLACEMENT From [facility] HERNIA REPAIR History reviewed. No pertinent family history. Review of systems: 10 point review of systems was gone over with patient. Pertinent positives are as previously stated in history of present illness. Physical exam: Vitals: Vitals: 02/05/23 0415 02/05/23 0600 02/05/23 0630 02/05/23 0700 BP: (!) 154/105 (!) 146/95 (!) 151/96 Pulse: 90 85 85 81 Resp: (!) 20 (!) 20 17 18 Temp: SpO2: 96% 97% 96% 96% Ears: External ears well formed. External auditory canals are obstructed bilaterally with cerumen. Tympanic membranes cannot be visualized. Oral: Good mucous salivary flow from Stensen's Hood's ducts bilaterally. Poor dentition Neck: Patient is in a cervical collar trachea is midline. Nose: Nasal mucosa is pink and moist. Nasal septum is deviated sigmoid and shape. No evidence of septal hematoma at this time. Nasal dorsum has deflection to the patient's right. CT maxillofacial without contrast: I have independently reviewed the patient's imaging images and radiologist's interpretation as well as my personal interpretation of the afformentioned images and discussed the results with them. CT maxillofacial bones: There are bilateral nondisplaced nasal bone fractures with overlying soft tissue swelling and small amount of secretions or hemorrhage in the underlying nasal cavity. No other acute fracture or dislocation in the maxillofacial bones. Temporomandibular joints are intact. Scattered dental caries and periodontal disease/tooth infection. Age-indeterminate nasal septum fracture without evidence of septal hematoma. Assessment plan: Bilateral nondisplaced nasal bone fractures and age-indeterminatenasal septum fracture- no surgical intervention is required at this time. Recommend continuing patient on nasal saline sprays 2 sprays to each nostril 2-4 times daily patient is okay to follow-up with me as an outpatient 3 to 6 weeks after discharge. Sign off End dictation Dictated not read documented in this encounter [facility] 02-10-2023 History of Present illness Narrative Care Management Progress Note Date: 02/10/2023 Time: 9:48 AM Patient Name: Hector Castorena Date of : 1955 Discharge Plan: D/C Disposition: Home Regulatory Documentation: Medicare IM Regulatory Documentation Status: Certified Patient Paper Copy: Patient received paper copy Discharging Transportation Plan: Discharge Plan Status: Secure chat received from SAILAJA Friedman that patient is interested in rehab in [facility]. In to see patient. Discussed continued rehab at discharge. Patient was not aware that when he spoke with the trauma team, that they were meaning he would stay somewhere. Offered to get patient a list so he could at least see which facilities were in-network with his insurance but patient declined. Patient confirmed he still prefers to do outpatient therapy. Patient reports he has Parkinson's disease and has multiple family members who will help him. Patient has one step to enter the home and reports his brother can help him with the step if needed. Patient reports if needed, he would even be willing to have family bring him to this hospital for outpatient therapy. Patient made aware if the is already participating in outpatient therapy in his area, he can continue this at discharge. Patient denied any additional needs and is eager to return home. Updated RN Idalia. Idalia reports she will update the trauma team. [facility] and [facility] DAILY PROGRESS NOTE ========MECHANISM: Fall DIAGNOSIS / REASON FOR CONSULT: Traumatic subdural hematoma with loss of consciousness of 30 minutes or less (HCC) Assessment & Plan CT head with thin acute subdural hematoma along the right side of the falx, no mass effect or shift. Repeat imaging stable. Nsx signed off; lovenox Cog eval completed Therapies, dispo planning Spinal pain Assessment & Plan Thoracic and lumbar spinal pain to palpation and with range of motion - now resolved CT thoracic and lumbar negative -therapies Open fracture of nasal bone Assessment & Plan Bilateral nasal bone fractures with small superficial laceration -nasal spray; no atb needed -wound care Cervical strain Assessment & Plan Patient endorses cervical pain on palpation is baseline now and endorses bilateral upper extremity paresthesias have resolved CT cervical spine negative MRI completed - NSX reviewed; c-collar cleared - therapies, dispo planning INCIDENTAL FINDINGS: RESOLVED PROBLEMS: SURGERIES/PROCEDURES: Date Operation/Procedure Provider Name ========TODAY'S ASSESSMENT AND PLAN OF CARE: As above DISPOSITION -working on safe discharge plan ========CHIEF COMPLAINT/ HPI / PFSHx / EVENTS OVER LAST 24HRS: No overnight events. Pt is doing well. Discussed dispo plan requesting rehab in [place] once he talks with his family. RN notified of this request to work with social services coordinator for possible placement REVIEW OF SYSTEMS: Other than the above items the remainder of the complete ROS is otherwise unchanged from admission. PHYSICAL EXAM: Temp: [97.9 F (36.6 C)-98.4 F (36.9 C)] 97.9 F (36.6 C) Heart Rate: [62-82] 78 Resp: [14-16] 16 BP: (120-145)/(83-94) 135/92 GENERAL: Appears age appropriate. NEUROLOGICAL: Alert and oriented. Follows commands with extremities x4, GCS = 14; b/l UE paresthesias from wrists to fingertips - improving. Tremors. Head Eyes Ear Nose Throat: Head: Abrasion to bridge of nose - healing; normocephalic Neck: Supple, trachea midline CARDIOVASCULAR: Regular rate and rhythm. No peripheral edema noted. 2+ pulses radial/DP/PT bilaterally. RESPIRATORY: Respiratory effort unlabored without use of accessory muscles. RA ABDOMINAL: Rounded, soft, nontender, nondistended. GENITOURINARY: Normal genitalia for age without lesion or trauma. MUSCULOSKELETAL: Extremities atraumatic without gross deformity x4. SKIN: Skin warm and dry. Intake/Output Summary (Last 24 hours) at 02/10/2023 0921 Last data filed at 02/10/2023 0400 Gross per 24 hour Intake -- Output 175 ml Net -175 ml IMAGING [briefly note any results pertinent to today's evaluation]: None new LABS None new DAILY CHECKLIST: *Need for Restraints: no *Need for Urinary Catheter: no *Need for Central Access Devices: no *Stress Ulcer Prophylaxis: diet *VTE Prophylaxis (Body mass index is 21.59 kg/m ., Estimated Creatinine Clearance: 69.5 mL/min (by C-G formula based on SCr of 0.94 mg/dL).): lovenox *Home Medications Reconciled: yes *Code Status: full Associated attestation - Andrew Rubio MD - 02/10/2023 11:48 AM EDT TRAUMA/ ACUTE CARE SURGERY ATTENDING NOTE Please link this note as an addendum to the resident or LASHA note with the same day of service. The patient was seen and examined by me, the attending trauma surgeon, on multidisciplinary rounds on the date of service listed above. I have reviewed the resident or LASHA note with the relevant labs, studies, and sap business objects consultant notes. I have reviewed and agree with the documented history, exam, and plan of care, with the following additions and corrections: Today: Hector Castorena is a 68 y.o. male presenting with SDH and nasal fx following fall. CT head stable, nsg and ENT s/o. Therapies, lovenox, home meds, dispo planning. A comprehensive review of systems was performed with the pt and all systems reviewed were negative except those listed in the HPI. Pedro Luis Rubio MD, FACS, DABS, DABA Trauma, Acute Care Surgery, Surgical Critical Care, and Neurocritical Care [facility] and [facility] DAILY PROGRESS NOTE ========MECHANISM: Fall DIAGNOSIS / REASON FOR CONSULT: Traumatic subdural hematoma with loss of consciousness of 30 minutes or less (HCC) Assessment & Plan CT head with thin acute subdural hematoma along the right side of the falx, no mass effect or shift. Repeat imaging stable. Nsx signed off; lovenox Cog eval completed Therapies, dispo planning Spinal pain Assessment & Plan Thoracic and lumbar spinal pain to palpation and with range of motion - now resolved CT thoracic and lumbar negative -therapies Open fracture of nasal bone Assessment & Plan Bilateral nasal bone fractures with small superficial laceration -nasal spray; no atb needed -wound care Cervical strain Assessment & Plan Patient endorses cervical pain on palpation is baseline now and endorses bilateral upper extremity paresthesias have resolved CT cervical spine negative MRI completed - NSX reviewed; c-collar cleared - therapies, dispo planning INCIDENTAL FINDINGS: RESOLVED PROBLEMS: SURGERIES/PROCEDURES: Date Operation/Procedure Provider Name ========TODAY'S ASSESSMENT AND PLAN OF CARE: As above DISPOSITION -working on safe discharge plan ========CHIEF COMPLAINT/ HPI / PFSHx / EVENTS OVER LAST 24HRS: No overnight events. Pt is doing well. Need to discuss safe dispo plan. REVIEW OF SYSTEMS: Other than the above items the remainder of the complete ROS is otherwise unchanged from admission. PHYSICAL EXAM: Temp: [97.7 F (36.5 C)-98.5 F (36.9 C)] 97.7 F (36.5 C) Heart Rate: [60-104] 60 Resp: [14-17] 14 BP: (121-148)/(83-96) 142/96 GENERAL: Appears age appropriate. NEUROLOGICAL: Alert and oriented. Follows commands with extremities x4, GCS = 14; b/l UE paresthesias from wrists to fingertips , improving Head Eyes Ear Nose Throat: Head: Abrasion to bridge of nose; normocephalic. Throat: phonation normal Neck: Supple, trachea midline, aspen collar, pain at baseline CARDIOVASCULAR: Regular rate and rhythm. No peripheral edema noted. 2+ pulses radial/DP/PT bilaterally. RESPIRATORY: Respiratory effort unlabored without use of accessory muscles. RA ABDOMINAL: Rounded, soft, nontender, nondistended. GENITOURINARY: Normal genitalia for age without lesion or trauma. MUSCULOSKELETAL: Extremities atraumatic without gross deformity x4. SKIN: Skin warm and dry. Intake/Output Summary (Last 24 hours) at 02/09/2023 0610 Last data filed at 02/08/2023 1300 Gross per 24 hour Intake 360 ml Output 200 ml Net 160 ml IMAGING [briefly note any results pertinent to today's evaluation]: None new LABS None new DAILY CHECKLIST: *Need for Restraints: no *Need for Urinary Catheter: no *Need for Central Access Devices: no *Stress Ulcer Prophylaxis: diet *VTE Prophylaxis (Body mass index is 21.59 kg/m ., Estimated Creatinine Clearance: 70.4 mL/min (by C-G formula based on SCr of 0.94 mg/dL).): lovenox *Home Medications Reconciled: yes *Code Status: full Associated attestation - Rahat Chau MD - 02/09/2023 8:20 AM EDT The patient was independently seen and examined. He has very anxious to go home as opposed to somewhere else on discharge. He feels like he is getting better. CT reviewed Continue therapies Dispo planning. Physical Therapy PHYSICAL THERAPY TREATMENT NOTE Skilled Therapy Needs After Discharge Anticipate Resolution of Current Assessment Limitations Including: Pain, Mechanical Barriers, Social Support Are Skilled Therapy Services Needed After Discharge: Yes Intensity of Skilled Therapy: 5 to 7 days per week Anticipated Duration of Skilled Therapy: Duration 7 - 10 days Rehab Potential: Good Outcomes Measures Prior Function - Basic Mobility Raw Score: 24 Points Prior Function - Basic Mobility % Impaired: 0% AM-PAC Basic Mobility Raw Score: 15 Points AM-PAC Basic Mobility % Impaired: 50.40% Activity Tolerance Activity Tolerance: Tolerates 20 - 30 min activity with multiple rests Therapy Precautions Orthotic Devices: Yes Spine / Trunk / Head: Cervical Collar, at all times General Rehab Precautions: Cervical, Fall risk Balance Sitting Balance - Static: Contact guard assist Loss of Balance - Sitting Static: posterior Sitting Balance - Dynamic: Contact guard assist Loss of Balance - Sitting Dynamic: posterior, intermittent Sitting Balance Treatment: weight shifting anterior Skilled Intervention Provided: verbal cues, tactile cues, patient education For: LE management, LE positioning, fall prevention, balance recovery, postural alignment, trunk control, self-monitoring during activity Resulting in: improved activity tolerance, improved balance reactions, increased upright tolerance for functional tasks Standing Balance - Static: Contact guard assist, Minimal assist Slip Bridge Operator - Standing Static: wheeled walker Loss of Balance- Standing Static: right, inconsistent Standing Balance - Dynamic: Contact guard assist Slip Bridge Operator - Standing Dynamic: wheeled walker Loss of Balance- Standing Dynamic: intermittent Standing Balance Treatment: weight shifting anterior, weight shifting left, maintaining midline Skilled Intervention Provided: verbal cues, tactile cues, visual cues, demonstration, facilitation, patient education For: LE management, LE positioning, attention to task, balance recovery, safe use of AD and/or equipment, self-monitoring during activity Resulting in: improved activity tolerance, improved balance reactions, improved functional independence, increased upright tolerance for functional tasks Bed Mobility Rolling: Contact guard assist Supine to Sit: Contact guard assist, Minimal assist Slip Bridge Operator: bedrails, bed positioning mechanics Skilled Intervention Provided: verbal cues, tactile cues, monitoring patient response with activity For: LE management, LE positioning, fall prevention, self-monitoring during activity Resulting in: improved activity tolerance, improved performance, increased upright tolerance for functional tasks Transfers Sit to Stand: Contact guard assist, Minimal assist Bed to Chair: Contact guard assist, Minimal assist Stand Pivot Transfers: Contact guard assist Slip Bridge Operator: wheeled walker Skilled Intervention Provided: verbal cues, tactile cues, visual cues, monitoring patient response with activity For: LE management, LE positioning, safe use of AD and/or equipment, self-monitoring during activity Resulting in: improved activity tolerance, improved balance, improved functional independence, increased upright tolerance for functional tasks Gait/Locomotion Gait Assistance: Contact guard assist Assistive Device: wheeled walker Distance: 50 Feet Rest Breaks: Yes Rest Break Position: standing Rest Break Duration: 1 min Additional Gait Trial 2: Yes Gait Assistance Trial 2: Contact guard assist Assistive Device Trial 2: wheeled walker Distance Trial 2: 50 Rest Breaks Trial 2: Yes Rest Break Position Trial 2: seated Rest Break Duration Trial 2: 1-2 mins Skilled Intervention Provided: verbal cues, tactile cues, monitoring patient response with activity For: fall prevention, gait sequence, LE management, UE management, self-monitoring during activity, dual task - cognitive, attention to task, device management and safe use of device Resulting in: improved activity tolerance, increased upright tolerance for functional tasks, improved functional independence Exercise Ankle Pumps: x15 Heelslides: x15 Long Arc Quad: x15 Seated Exercises: marching x15 Standing Exercises: pt completed dynamic standing activities x15 to improve functional mobility and LE strengthening. Skilled Intervention Provided: verbal cues, tactile cues, monitoring patient response with exercise For: achieving full ROM as tolerated, fall prevention, frequency of exercise(s), muscle activation, number of repetitions Resulting in: improved activity tolerance, improved functional strength/ROM, improved safety Additional Treatment Details Home Living Obtained Home Living and PLOF info from: Patient, Review of patient s medical record Unable to obtain Home Living and PLOF info on initial eval: Patient is a questionable historian Lives With: Family (2 brothers, sister, SAM, niece) Type of Home: House Home Layout: Two level, Able to live on main level with bedroom/bathroom, Performs ADLs on one level Steps to enter home: Yes Rails to enter home: None Number of stairs to enter home: 3 Bathroom Shower/Tub: Tub/shower unit, Main level Bathroom Toilet: Standard Bathroom Equipment: Grab bars in shower, Shower chair, Hand-held showerhead Mobility Equipment: Cane ADL Equipment: Sock aid, Gun Stock Checker, Long handled shoe horn Prior Level of Function Receives Help From: Family Level of [place] - Transfers/Ambulation/Mobility: Independent with functional transfers, Independent with household ambulation, Independent with community ambulation Level of [place] - ADLs: Independent with ADLs, except (Brother helps with shaving) Level of [place] - Homemaking: Independent Driving: Patient drives (Does not drive often) Vocational: Retired For complete objective data, detailed plan of care and patient education refer to: PT Evaluation flowsheet, PT Evaluation and Treatment flowsheet, PT Treatment flowsheet, patient Plan of Care, Plan of Care progress note, and Patient Education. This note stands as the current Discharge Summary upon patient discharge from the hospital or completion of Physical Therapy Plan of Care. [facility] and [facility] DAILY PROGRESS NOTE ========MECHANISM: Fall DIAGNOSIS / REASON FOR CONSULT: Traumatic subdural hematoma with loss of consciousness of 30 minutes or less (HCC) Assessment & Plan CT head with thin acute subdural hematoma along the right side of the falx, no mass effect or shift. Repeat imaging stable. Nsx signed off; starting prophylactic lovenox Cog eval completed Therapies, dispo planning Spinal pain Assessment & Plan Thoracic and lumbar spinal pain to palpation and with range of motion CT thoracic and lumbar negative -therapies , resolved Open fracture of nasal bone Assessment & Plan Bilateral nasal bone fractures with small superficial laceration -nasal spray; no atb needed -no breathing difficulty -wound care Cervical strain Assessment & Plan Patient endorses cervical pain on palpation is baseline now and endorses bilateral upper extremity paresthesias are improving CT cervical spine negative -MRI completed, c-collar cleared per nsx; therapies, dispo planning INCIDENTAL FINDINGS: RESOLVED PROBLEMS: SURGERIES/PROCEDURES: Date Operation/Procedure Provider Name ========TODAY'S ASSESSMENT AND PLAN OF CARE: As above DISPOSITION -working on safe discharge plan ========CHIEF COMPLAINT/ HPI / PFSHx / EVENTS OVER LAST 24HRS: No overnight events. Pt is doing well. Need to discuss safe dispo plan. REVIEW OF SYSTEMS: Other than the above items the remainder of the complete ROS is otherwise unchanged from admission. PHYSICAL EXAM: Temp: [97.5 F (36.4 C)-98.4 F (36.9 C)] 98.4 F (36.9 C) Heart Rate: [75-82] 82 Resp: [15-16] 15 BP: (121-150)/(84-105) 150/105 GENERAL: Appears age appropriate. No acute distress. NEUROLOGICAL: Alert and oriented. Follows commands with extremities x4, GCS = 14; b/l UE paresthesias from wrists to fingertips , improving Head Eyes Ear Nose Throat: Head: Abrasion to bridge of nose; normocephalic. Throat: phonation normal Neck: Supple, trachea midline, aspen collar, pain at baseline CARDIOVASCULAR: Regular rate and rhythm. No peripheral edema noted. 2+ pulses radial/DP/PT bilaterally. RESPIRATORY: Respiratory effort unlabored without use of accessory muscles. RA ABDOMINAL: Rounded, soft, nontender, nondistended, No guarding or peritoneal signs. GENITOURINARY: Normal genitalia for age without lesion or trauma. MUSCULOSKELETAL: Extremities atraumatic without gross deformity x4. SKIN: Skin warm and dry. No rashes or lesions. Intake/Output Summary (Last 24 hours) at 02/08/2023 0740 Last data filed at 02/08/2023 0658 Gross per 24 hour Intake -- Output 500 ml Net -500 ml IMAGING [briefly note any results pertinent to today's evaluation]: None new LABS None new DAILY CHECKLIST: *Need for Restraints: no *Need for Urinary Catheter: no *Need for Central Access Devices: no *Stress Ulcer Prophylaxis: pepcid *VTE Prophylaxis (Body mass index is 21.59 kg/m ., Estimated Creatinine Clearance: 70.4 mL/min (by C-G formula based on SCr of 0.94 mg/dL).): lovenox *Home Medications Reconciled: yes *Code Status: full Occupational Therapy OCCUPATIONAL THERAPY TREATMENT NOTE Skilled Therapy Needs After Discharge Anticipate Resolution of Current Assessment Limitations Including: Pain, Mechanical Barriers, Social Support Are Skilled Therapy Services Needed After Discharge: Yes Intensity of Skilled Therapy: 5 to 7 days per week Anticipated Duration of Skilled Therapy: Duration 7 - 10 days DME Recommendation: To be determined at next level of care Rehab Potential: Good, For goals Outcomes Measures Prior Function Daily Activity Raw Score: 23 Prior Function Daily Activity % Impaired: 15.86% AM-PAC Daily Activity Raw Score: 18 AM-PAC Daily Activity % Impaired: 46.65% Activity Tolerance Activity Tolerance: Tolerates 20 - 30 min activity with multiple rests Therapy Precautions Orthotic Devices: No Spine / Trunk / Head: Cervical Collar Weight Bearing Status: WFL General Rehab Precautions: Fall risk, Cervical Cognition Overall Cognitive Status: Within Functional Limits Arousal/Alertness: Appropriate responses to stimuli Orientation Level: Oriented X4 Safety Judgment: Decreased awareness of need for assistance, Decreased awareness of need for safety Problem Solving: Assistance required to identify errors made, Assistance required to generate solutions, Assistance required to implement solutions Attention: Attends to quiet environment Hearing Status: WFL Social Interaction: Cooperative Comments: Followed all commands during session. ADL Grooming: Contact guard assist (to complete oral care and face washing seated in chair. Stood for 5 min.) Upper Body Bathing: Stand by assist (seated in chair) Lower Body Bathing: Minimal assist (CGA provided for standing balance, while completing vanessa/posterior care. Min A to manage bathing lower LE's) Lower Body Dressing: Minimal assist (SBA to manage socks with figure four technique. Min A to manage brief.) Functional Mobility: Minimal assist (to amb to and from bathroom with FWW.) Functional Mobility - Skilled Intervention Provided: monitoring patient response with activity Functional Mobility - For: fall prevention, increased participation in mobility task Functional Mobility - Resulting In: improved activity tolerance, increased initiation/participation in mobility task(s), improved performance Overall ADL Performance - Skilled Intervention Provided: verbal cues, monitoring patient response with activity Overall ADL Performance - For: safety during functional task(s) Overall ADL Performance - Resulting In: improved overall self-care, improved participation in ADL task(s) Bed Mobility Sit to Supine: Contact guard assist, Head of bed flat Skilled Intervention Provided: verbal cues, monitoring patient response with activity For: fall prevention Resulting In: improved activity tolerance, increased participation in mobility task(s) Functional Transfers Sit to Stand: Contact guard assist (from chair.) Bed to Chair Transfers: Contact guard assist Slip Bridge Operator: wheeled walker Balance Treatment Standing Balance - Static: Contact guard assist, with unilateral LUE support, with device, 1+ to 3 minutes Slip Bridge Operator - Standing Static: wheeled walker Loss of Balance- Standing Static: right, posterior Home Living Obtained Home Living and PLOF info from: Patient, Review of patient s medical record Unable to obtain Home Living and PLOF info on initial eval: Patient is a questionable historian Lives With: Family (2 brothers, sister, SAM, niece) Type of Home: House Home Layout: Two level, Able to live on main level with bedroom/bathroom, Performs ADLs on one level Steps to enter home: Yes Rails to enter home: None Number of stairs to enter home: 3 Bathroom Shower/Tub: Tub/shower unit, Main level Bathroom Toilet: Standard Bathroom Equipment: Grab bars in shower, Shower chair, Hand-held showerhead Mobility Equipment: Cane ADL Equipment: Sock aid, Gun Stock Checker, Long handled shoe horn Prior Level of Function Receives Help From: Family Level of [place] - Transfers/Ambulation/Mobility: Independent with functional transfers, Independent with household ambulation, Independent with community ambulation Level of [place] - ADLs: Independent with ADLs, except (Brother helps with shaving) Level of [place] - Homemaking: Independent Driving: Patient drives (Does not drive often) Vocational: Retired For complete objective data, detailed plan of care and patient education refer to: OT Evaluation flowsheet, OT Evaluation and Treatment flowsheet, OT Treatment flowsheet, patient Plan of Care, Plan of Care progress note, and Patient Education. This note stands as the current Discharge Summary upon patient discharge from the hospital or completion of Occupational Therapy Plan of Care. Physical Therapy PHYSICAL THERAPY TREATMENT NOTE Skilled Therapy Needs After Discharge Anticipate Resolution of Current Assessment Limitations Including: Mechanical Barriers, Social Support Are Skilled Therapy Services Needed After Discharge: Yes Intensity of Skilled Therapy: 5 to 7 days per week Anticipated Duration of Skilled Therapy: Duration 7 - 10 days Rehab Potential: Good Outcomes Measures Prior Function - Basic Mobility Raw Score: 24 Points Prior Function - Basic Mobility % Impaired: 0% AM-PAC Basic Mobility Raw Score: 15 Points AM-PAC Basic Mobility % Impaired: 50.40% Activity Tolerance Activity Tolerance: Tolerates 20 - 30 min activity with multiple rests Therapy Precautions Orthotic Devices: Yes Spine / Trunk / Head: Cervical Collar, at all times General Rehab Precautions: Cervical, Fall risk (2 person pivot) Balance Sitting Balance - Static: Contact guard assist Sitting Balance - Dynamic: Contact guard assist Loss of Balance - Sitting Dynamic: intermittent Standing Balance - Static: Contact guard assist Slip Bridge Operator - Standing Static: wheeled walker Loss of Balance- Standing Static: right, intermittent Standing Balance - Dynamic: Contact guard assist Slip Bridge Operator - Standing Dynamic: same maid cleaning cooking used for static standing tasks Loss of Balance- Standing Dynamic: intermittent Standing Balance Treatment: weight shifting anterior, weight shifting left, weight shifting right, maintaining midline, postural re-education, varying base of support, upright gaze Skilled Intervention Provided: verbal cues, facilitation, neuromuscular re-education, patient education For: attention to task, balance recovery, trunk control, postural alignment, fall prevention Resulting in: increased upright tolerance for functional tasks, improved trunk stability, improved motor control, improved balance reactions, improved activity tolerance Bed Mobility Rolling: Contact guard assist Supine to Sit: Contact guard assist Slip Bridge Operator: bedrails, bed positioning mechanics Skilled Intervention Provided: verbal cues, facilitation, patient education For: safe use of bedrails and/or equipment, attention to task, proper body mechanics Resulting in: increased upright tolerance for functional tasks, increased participation in mobility task(s) Transfers Sit to Stand: Minimal assist Bed to Chair: Contact guard assist Stand Pivot Transfers: Contact guard assist Slip Bridge Operator: wheeled walker Skilled Intervention Provided: verbal cues, facilitation, patient education, neuromuscular re-education For: safe use of AD and/or equipment, attention to task, proper body mechanics Resulting in: increased upright tolerance for functional tasks, improved activity tolerance, improved performance, improved safety Gait/Locomotion Gait Assistance: Contact guard assist Assistive Device: wheeled walker Distance: 18 Feet Rest Breaks: Yes Rest Break Position: seated Rest Break Duration: 1 min Additional Gait Trial 2: Yes Gait Assistance Trial 2: Contact guard assist Assistive Device Trial 2: wheeled walker Distance Trial 2: 50 Rest Breaks Trial 2: Yes Rest Break Position Trial 2: seated Rest Break Duration Trial 2: 1-2 mins Additional Gait Trial 3: Yes Gait Assistance Trial 3: Contact guard assist Assistive Device Trial 3: wheeled walker Distance Trial 3: 40 Skilled Intervention Provided: verbal cues, tactile cues, monitoring patient response with activity, facilitation, patient education For: device management and safe use of device, gait sequence, gait technique, attention to task, improved posture, fall prevention Resulting in: increased upright tolerance for functional tasks, improved activity tolerance, improved performance, improved safety Exercise Supine Exercises: pt performed sam LE therex in supine x 15 each with 3 sec holds for strengthening and endurance Skilled Intervention Provided: verbal cues, tactile cues, facilitation, instruction on proper technique/alignment For: achieving full ROM as tolerated, proper positioning of extremity, hold duration, efficient movement Resulting in: improved functional strength/ROM, improved activity tolerance, efficient movement Additional Treatment Details Home Living Obtained Home Living and PLOF info from: Patient, Review of patient s medical record Unable to obtain Home Living and PLOF info on initial eval: Patient is a questionable historian Lives With: Family (2 brothers, sister, SAM, niece) Type of Home: House Home Layout: Two level, Able to live on main level with bedroom/bathroom, Performs ADLs on one level Steps to enter home: Yes Rails to enter home: None Number of stairs to enter home: 3 Bathroom Shower/Tub: Tub/shower unit, Main level Bathroom Toilet: Standard Bathroom Equipment: Grab bars in shower, Shower chair, Hand-held showerhead Mobility Equipment: Cane ADL Equipment: Sock aid, Gun Stock Checker, Long handled shoe horn Prior Level of Function Receives Help From: Family Level of [place] - Transfers/Ambulation/Mobility: Independent with functional transfers, Independent with household ambulation, Independent with community ambulation Level of [place] - ADLs: Independent with ADLs, except (Brother helps with shaving) Level of [place] - Homemaking: Independent Driving: Patient drives (Does not drive often) Vocational: Retired For complete objective data, detailed plan of care and patient education refer to: PT Evaluation flowsheet, PT Evaluation and Treatment flowsheet, PT Treatment flowsheet, patient Plan of Care, Plan of Care progress note, and Patient Education. This note stands as the current Discharge Summary upon patient discharge from the hospital or completion of Physical Therapy Plan of Care. [facility] and [facility] DAILY PROGRESS NOTE ========MECHANISM: Fall DIAGNOSIS / REASON FOR CONSULT: Traumatic subdural hematoma with loss of consciousness of 30 minutes or less (HCC) Assessment & Plan CT head with thin acute subdural hematoma along the right side of the falx, no mass effect or shift. Repeat imaging stable. Nsx signed off; starting prophylactic lovenox dosing today Cog eval completed Therapies, dispo planning Spinal pain Assessment & Plan Thoracic and lumbar spinal pain to palpation and with range of motion CT thoracic and lumbar negative -therapies , resolved Open fracture of nasal bone Assessment & Plan Bilateral nasal bone fractures with small superficial laceration -nasal spray; no atb needed -no breathing difficulty -wound care Cervical strain Assessment & Plan Patient endorses cervical pain on palpation is baseline now and endorses bilateral upper extremity paresthesias are improving CT cervical spine negative -MRI completed, c-collar cleared per nsx; therapies, dispo planning INCIDENTAL FINDINGS: RESOLVED PROBLEMS: SURGERIES/PROCEDURES: Date Operation/Procedure Provider Name ========TODAY'S ASSESSMENT AND PLAN OF CARE: As above DISPOSITION - ========CHIEF COMPLAINT/ HPI / PFSHx / EVENTS OVER LAST 24HRS: No overnight events. Pt is doing well. Will need to work with therapies today and may need placement for therapy prior to returning home. This was discussed REVIEW OF SYSTEMS: Other than the above items the remainder of the complete ROS is otherwise unchanged from admission. PHYSICAL EXAM: Temp: [97.5 F (36.4 C)-98.4 F (36.9 C)] 97.5 F (36.4 C) Heart Rate: [61-96] 75 Resp: [14-16] 16 BP: (112-146)/(80-93) 121/84 GENERAL: Appears age appropriate. No acute distress. NEUROLOGICAL: Alert and oriented. Follows commands with extremities x4, No focal neurologic deficits noted. GCS = 14; b/l UE paresthesias from wrists to fingertips , improving Head Eyes Ear Nose Throat: Head: Abrasion to bridge of nose; normocephalic. Eyes: Conjunctivae/sclerae/corneas clear. Ears: External ear normal. Hearing within normal limits for patient. No drainage. Nose: nares normal, septum midline, no drainage or nasal tenderness. Throat: phonation normal Neck: Supple, trachea midline, aspen collar, pain at baseline CARDIOVASCULAR: Regular rate and rhythm. No peripheral edema noted. 2+ pulses radial/DP/PT bilaterally. RESPIRATORY: Respiratory effort unlabored without use of accessory muscles. RA ABDOMINAL: Rounded, soft, nontender, nondistended, No guarding or peritoneal signs. GENITOURINARY: Normal genitalia for age without lesion or trauma. MUSCULOSKELETAL: Extremities atraumatic without gross deformity x4. SKIN: Skin warm and dry. No rashes or lesions. Intake/Output Summary (Last 24 hours) at 02/07/2023 1047 Last data filed at 02/07/2023 0639 Gross per 24 hour Intake 120 ml Output 510 ml Net -390 ml IMAGING [briefly note any results pertinent to today's evaluation]: None new LABS None new DAILY CHECKLIST: *Need for Restraints: no *Need for Urinary Catheter: no *Need for Central Access Devices: no *Stress Ulcer Prophylaxis: pepcid *VTE Prophylaxis (There is no height or weight on file to calculate BMI., Estimated Creatinine Clearance: 70.4 mL/min (by C-G formula based on SCr of 0.94 mg/dL).): lovenox *Home Medications Reconciled: yes *Code Status: full Associated attestation - Ruben Suárez MD - 02/07/2023 2:31 PM EDT TRAUMA ATTENDING NOTE Please link this note as an addendum to the Trauma Advanced Practice Provider (LASHA) note with the same day of service. The patient was seen and examined by me, the attending trauma surgeon, on multidisciplinary rounds on the date of service listed above. I have reviewed Trauma LASHA note with the relevant labs, studies, and sap business objects consultant notes. I have reviewed and agree with the documented history, exam, and plan of care, with the following additions and corrections: Today: Patient Active Problem List Diagnosis Date Noted Cervical strain 02/05/2023 Open fracture of nasal bone 02/05/2023 Fall 02/05/2023 Spinal pain 02/05/2023 Traumatic subdural hematoma with loss of consciousness of 30 minutes or less (HCC) 02/05/2023 Fall at home, initial encounter 02/05/2023 Cervical stenosis- C-spine cleared by neurosurg after MRI. Start lovenox. Therapy evals. Dispo planning- may need facility. No further additions or corrections Ruben Suárez MD, FACS, FCCM, FASPEN Trauma and Acute Care Surgery Care Management Progress Note Date: 02/07/2023 Time: 10:41 AM Patient Name: Hector Castorena Date of : 1955 Discharge Plan: Discharging Transportation Plan: Discharge Plan Status: Audit-C score 0 and no alcohol lab drawn. SBIRT is not appropriate. 1146- Spoke with the patient regarding discharge plan. Bernard, PT, present as well. Patient confirmed he plans to return home with assistance from family. Patient reports he is already participating in outpatient therapy and he plans to continue this at discharge. Patient reports he has all needed medical equipment in place. NEUROSURGERY PROGRESS NOTE: Pt seen and examined at the bedside. No acute events. Patient sitting up in recliner with sitter at bedside. Patient states that his previously reported bilateral arm paresthesia has mostly resolved. He described the paresthesias as burning, prickling sensation. He denies any pain to his neck and back. Sensation is intact to bilateral upper and lower extremities to soft touch and cold. Denies any headaches or vision disturbances. MRI cervical shows central stenosis at the C3-4, C4-5, C5-6, and C6-[address] head (02/05/2023) shows a small inter-hemispheric SDH that remains stable. ENT confirmed via CT he does not have an open nasal fracture. -Continue neuro checks -Maintain Roland collar until further advised -Trauma and ENT also following -Social work on for discharge planning Vital Signs: Current: BP 112/80 (BP Location: Right arm, Patient Position: Sitting) Pulse 96 Temp 98.4 F (36.9 C) (Oral) Resp 16 SpO2 97% Last 24 hours: Temp: [98 F (36.7 C)-98.6 F (37 C)] 98.4 F (36.9 C) Heart Rate: [56-96] 96 Resp: [15-20] 16 BP: (98-160)/(74-94) 112/80 Intake/Output Summary (Last 24 hours) at 02/06/2023 1421 Last data filed at 02/06/2023 1204 Gross per 24 hour Intake 710 ml Output 720 ml Net -10 ml Labs: Lab Results Component Value Date NA 140 02/05/2023 K 4.1 02/05/2023 CL 111 (H) 02/05/2023 Lab Results Component Value Date WBC 9.49 02/05/2023 HGB 14.9 02/05/2023 HCT 45.5 02/05/2023 MCV 91.9 02/05/2023 PLT 269 02/05/2023 Lab Results Component Value Date INR 1.1 02/05/2023 PROTIME 14.1 02/05/2023 Physical Exam: Awake and alert, oriented x 3, NAD, responding appropriately Pupils equal and reactive to light Speech fluent and coherent, pleasant and cooperative with exam Breathing is even and unlabored Sensation: Intact and equal throughout to light touch and pain Reflexes: 2+/4 brachioradialis/patellar, negative Valenzuela's Muscle Strength Right Left 4+ Shoulder Abduction (Deltoid) 4+ 4+ Elbow Flexion (Biceps) 4+ 4+ Elbow Extension (Triceps) 4+ 4- Finger Abduction (Interossei) 4- 4+ Hip Flexion (Iliopsoas) 4+ 4+ Knee Extension (Quads) 4+ 4+ Knee Flexion (Hamstrings) 4+ 5 Dorsiflexion (Anterior Tibialis) 5 Neurological Surgery Consultation Assessment & Plan: Hector Castorena is a 67 y.o. male with pmhx of PD s/p DBS implantation admitted after mechanical fall from standing height on 02/04/2023. Patient has headaches and cervical pain with bilateral arm paresthesia since the fall with no myelopathic symptoms. CT results showing stable small interhemispheric SDH and no acute spinal fracture were reviewed with he patient. His cervical MRI was already requested to rule-out a structural etiology for the arm paresthesia. Discussed with RN need to coordinate with the [employer] DBS circulation sales representative for performing the MRI. Can ambulate with collar, will reassess after the MRI. 02/06/2023: Patient states his hand pain and paresthesia almost completely resolved now. Had episode of confusion yesterday that resolved. No new focal neurological symptoms, no myelopathy. Discussed with the patient MRI results showing C5-6 disc herniation with no myelomalacia, no ligamentous injury and no fracture (reviewed with neuroradiology). Roland collar cleared, patient aware of risk of progression of the degenerative changes and neurological deficits especially if recurrent fall. No urgent surgical intervention indicated. Will arrange a follow up in 2 weeks with a repeat head CT; patient aware to contact us earlier if new or worsening symptoms in the interim. Subjective Patient seen, reports his headaches improved and the hand pain and tingling almost completely resolved No new focal neurological symptoms. Had episode of confusion that resolved, no seizure Baseline balance issues and has motorized wheelchair at home, no bowel/bladder dysfunction Review of Systems: All other systems reviewed and negative other than HPI Objective BP 112/80 (BP Location: Right arm, Patient Position: Sitting) Pulse 96 Temp 98.4 F (36.9 C) (Oral) Resp 16 SpO2 97% General Appearance: Alert x oriented x 3, well appearing, and in no acute distress. CN III-XII no deficits, Right> left arm tremor No pain or step-off at palpation of the midline cervical spine Roland collar cleared, no pain or new symptoms with passive or active cervical motion RUE: 4+/5 delt, 5/5 bi, 5/5 tri, 5/5 we, 5/5 wf, 5/5 director of clinical applications/int LUE: 4+/5 delt, 5/5 bi, 5/5 tri, 5/5 we, 5/5 wf, 5/5 director of clinical applications/int RLE: 5/5 hf, 5/5 ke, 5/5 df, 5/5 pf, 5/5 ehl LLE: 5/5 hf, 5/5 ke, 5/5 df, 5/5 pf, 5/5 ehl No gross sensory deficits on exam Symmetric 1/4 DTRs. No Marya, no clonus, no Babinski. CV: regular pulses, no peripheral edema, no calf tenderness Resp: no respiratory distress, no use of accessory muscle Abdomen: non-distended Musculoskeletal: normal bulk, rigidity in all 4 extremities Vital Signs: Current: BP 112/80 (BP Location: Right arm, Patient Position: Sitting) Pulse 96 Temp 98.4 F (36.9 C) (Oral) Resp 16 SpO2 97% Last 24 hours: Temp Av.3 F (36.8 C) Min: 98 F (36.7 C) Max: 98.6 F (37 C) Pulse Av.3 Min: 56 Max: 96 Resp Av.6 Min: 15 Max: 20 SpO2 Av.6 % Min: 93 % Max: 99 % Labs: Lab Results Component Value Date NA 140 02/05/2023 INR 1.1 02/05/2023 HGB 14.9 02/05/2023 CREATININE 0.94 02/05/2023 WBC 9.49 02/05/2023 PLT 269 02/05/2023 Laboratory and Additional Data Reviewed: Reviewed 02/06/23 12:35 PM: Laboratory, Radiology, Cardiology, Medications, and Transcriptions Radiology: MR Cervical Spine Without Contrast Final Result 1. Overall quality of the examination is degraded by patient motion. 2. Central disc herniation C5-6 with cord compression with an AP diameter of the canal of 5 mm and bilateral foraminal stenosis. 3. Discogenic disease with an AP diameter of the canal of 7 mm at C4-5 and 8 mm at C3-4 with effacement of the CSF column. JGW/jcw Workstation ID: [id number] CT Head Or Brain Without Contrast Final Result Stable very small inter hemispheric subdural hematoma. No interval change from the study performed earlier today. Parenchymal volume loss and chronic microvascular disease. Workstation ID: [id number] CT Head Or Brain Without Contrast Final Result 1. Stable appearance of inter hemispheric subdural hematoma as compared to the prior study. This measures 3.17 mm in thickness. 2. Stable appearance and no change in bilateral thalamic deep brain stimulators. 3. Atrophy. Workstation ID: [id number] CT Lumbar Spine Reconstructed Final Result 1. No evidence of acute traumatic abnormality in the chest, abdomen or pelvis. 2. Mild bibasilar atelectasis. 3. Thoracic degenerative disc disease and lumbar facet arthropathy without fracture or subluxation. BeamlyD/Nodality Workstation ID: [id number] CT Thoracic Spine Reconstructed Final Result 1. No evidence of acute traumatic abnormality in the chest, abdomen or pelvis. 2. Mild bibasilar atelectasis. 3. Thoracic degenerative disc disease and lumbar facet arthropathy without fracture or subluxation. SZD/Nodality Workstation ID: [id number] CT Chest Abdomen Pelvis Without Contrast Final Result 1. No evidence of acute traumatic abnormality in the chest, abdomen or pelvis. 2. Mild bibasilar atelectasis. 3. Thoracic degenerative disc disease and lumbar facet arthropathy without fracture or subluxation. BeamlyD/Nodality Workstation ID: [id number] Interpretation of Testing: I personally reviewed the cervical MRI showing multilevel degenerative changes worse at the C5-6 level with no spinal cord signal abnormality and no ligamentous injury or acute fracture (discussed with neuro-radiologist Dr. Serrato). documented in this encounter [facility] 02-10-2023 Note Formatting of this n ote might be different from the original. Problem: Actual or potential alteration in health Goal: Absence of healthcare acquired conditions Outcome: Partially Met Problem: Pain Goal: Manage acute pain Outcome: Partially Met Goal: Manage chronic pain Outcome: Partially Met Goal: Reduced pain sensation Outcome: Partially Met Goal: Achievement of comfort function goal Outcome: Partially Met Problem: Falls, Risk of Goal: Absence of falls Outcome: Partially Met Problem: Actual or potential alteration in health Goal: Knowledge of Interdisciplinary Plan of Care Outcome: Completed Goal: Knowledge of Enviroment Outcome: Completed [facility] 02-10-2023 Miscellaneous Notes Problem: Actual or potential alteration in health Goal: Absence of healthcare acquired conditions Outcome: Partially Met Problem: Pain Goal: Manage acute pain Outcome: Partially Met Goal: Manage chronic pain Outcome: Partially Met Goal: Reduced pain sensation Outcome: Partially Met Goal: Achievement of comfort function goal Outcome: Partially Met Problem: Falls, Risk of Goal: Absence of falls Outcome: Partially Met Problem: Actual or potential alteration in health Goal: Knowledge of Interdisciplinary Plan of Care Outcome: Completed Goal: Knowledge of Enviroment Outcome: Completed Problem: Actual or potential alteration in health Goal: Absence of healthcare acquired conditions Outcome: Partially Met Goal: Knowledge of Interdisciplinary Plan of Care Outcome: Partially Met Goal: Knowledge of Enviroment Outcome: Partially Met Problem: Pain Goal: Manage acute pain Outcome: Partially Met Goal: Manage chronic pain Outcome: Partially Met Goal: Reduced pain sensation Outcome: Partially Met Goal: Achievement of comfort function goal Outcome: Partially Met Problem: Falls, Risk of Goal: Absence of falls Outcome: Partially Met Problem: Actual or potential alteration in health Goal: Absence of healthcare acquired conditions Outcome: Partially Met Goal: Knowledge of Interdisciplinary Plan of Care Outcome: Partially Met Goal: Knowledge of Enviroment Outcome: Partially Met Problem: Pain Goal: Manage acute pain Outcome: Partially Met Goal: Manage chronic pain Outcome: Partially Met Goal: Reduced pain sensation Outcome: Partially Met Goal: Achievement of comfort function goal Outcome: Partially Met Problem: Falls, Risk of Goal: Absence of falls Outcome: Partially Met Problem: Actual or potential alteration in health Goal: Absence of healthcare acquired conditions Outcome: Partially Met Goal: Knowledge of Interdisciplinary Plan of Care Outcome: Met Goal: Knowledge of Enviroment Outcome: Met Problem: Pain Goal: Manage acute pain Outcome: Partially Met Goal: Manage chronic pain Outcome: Partially Met Goal: Reduced pain sensation Outcome: Partially Met Goal: Achievement of comfort function goal Outcome: Partially Met Problem: Falls, Risk of Goal: Absence of falls Outcome: Partially Met CHART REVIEW Reason for visit: Dietitian Screen Current diet order: Regular, no pork Current oral nutrition supplement: none Recent intake: 50%-75%. Dx/Pertinent clinical information: S/p fall. Past Medical History: Diagnosis Date Parkinson disease (HCC) Height: Current weight: BMI There is no height or weight on file to calculate BMI. Weight hx: Wt Readings from Last 5 Encounters: 02/04/23 64.4 kg (142 lb) Labs: Recent Labs 02/05/23 0015 02/05/23 0656 02/06/23 0523 NA 141 140 -- K 3.9 4.1 -- BICARB -- CL 112* 111* -- GLUCOSE 114* 114* -- BUN 13 13 -- CREATININE 0.96 0.94 -- MG 1.9 -- -- PHOS 2.0* -- 2.7 Pt is at moderate nutritional risk at this time. An assessment will be completed within 6 days. RENNY Winter, RDN, LD Problem: Actual or potential alteration in health Goal: Absence of healthcare acquired conditions Outcome: Partially Met Goal: Knowledge of Interdisciplinary Plan of Care Outcome: Partially Met Goal: Knowledge of Enviroment Outcome: Partially Met Problem: Pain Goal: Manage acute pain Outcome: Partially Met Goal: Manage chronic pain Outcome: Partially Met Goal: Reduced pain sensation Outcome: Partially Met Goal: Achievement of comfort function goal Outcome: Partially Met Problem: Falls, Risk of Goal: Absence of falls Outcome: Partially Met Problem: Actual or potential alteration in health Goal: Absence of healthcare acquired conditions Outcome: Partially Met Goal: Knowledge of Interdisciplinary Plan of Care Outcome: Partially Met Goal: Knowledge of Enviroment Outcome: Partially Met Problem: Pain Goal: Manage acute pain Outcome: Partially Met Goal: Manage chronic pain Outcome: Partially Met Goal: Reduced pain sensation Outcome: Partially Met Goal: Achievement of comfort function goal Outcome: Partially Met Problem: Falls, Risk of Goal: Absence of falls Outcome: Partially Met Patient is on fall precautions. Patient is given pain medication and reoriented when needed. Neurosurgery Sign-Off Consulting Neurosurgeon: Dr Lozoya Diagnosis: Interhemispheric SDH and cervical central stenosis Plan: Roland collar cleared. F/U in clinic with repeat head CT Follow-up: With Dr. Lozoya in 2 weeks. Medications: Per primary team DVT Prophylaxis: Per primary team Braces: Not Applicable Activity: No Brace Needed Discharge instructions updated with appropriate follow-up. The Neurosurgery service will sign off at this time. Please re-consult with any questions, concerns or clinical updates. SPEECH THERAPY VISIT VARIANCE NOTE Attempted to see patient at this time, but unable secondary to: Visit Variance: Unable to Participate. Pt asleep on entry, 1:1 sitter indicates pt just got comfortable and fell asleep. Will follow up as appropriate. [facility] TRA[facility]MA and [facility] DAILY PROGRESS NOTE ========MECHANISM: Fall DIAGNOSIS / REASON FOR CONSULT: Traumatic subdural hematoma with loss of consciousness of 30 minutes or less (HCC) Assessment & Plan CT head with thin acute subdural hematoma along the right side of the falx, no mass effect or shift. Repeat imaging stable. No AC/AP meds, short LOC, GCS 15 Nsx following, continue neuro checks ST ordered for cog eval Some agitation overnight and received a dose of Haldol, better this AM, delirium prevention measures Spinal pain Assessment & Plan Thoracic and lumbar spinal pain to palpation and with range of motion CT thoracic and lumbar negative -therapies , resolved Open fracture of nasal bone Assessment & Plan Bilateral nasal bone fractures with small superficial laceration -nasal spray; no atb needed -no breathing difficulty -wound care Cervical strain Assessment & Plan Patient endorses cervical pain on palpation and endorses bilateral upper extremity paresthesias. CT cervical spine negative, pain is back to baseline -MRI completed, ok to ambulate with collar, paresthesias in b/l arms improving INCIDENTAL FINDINGS: RESOLVED PROBLEMS: SURGERIES/PROCEDURES: Date Operation/Procedure Provider Name ========TODAY'S ASSESSMENT AND PLAN OF CARE: As above DISPOSITION - ========CHIEF COMPLAINT/ HPI / PFSHx / EVENTS OVER LAST 24HRS: Pt agitated overnight and received a dose of haldol. Better this AM. No complaints. Paresthesias improving. Neck pain at baseline REVIEW OF SYSTEMS: Other than the above items the remainder of the complete ROS is otherwise unchanged from admission. PHYSICAL EXAM: Temp: [97.4 F (36.3 C)-98.6 F (37 C)] 98.6 F (37 C) Heart Rate: [56-81] 81 Resp: [15-20] 17 BP: (98-160)/(74-94) 136/87 GENERAL: Appears age appropriate. No acute distress. NEUROLOGICAL: Alert and oriented. Follows commands with extremities x4, No focal neurologic deficits noted. GCS = 14; b/l UE paresthesias from elbows to fingertips , improving Head Eyes Ear Nose Throat: Head: Atraumatic, normocephalic. Eyes: Conjunctivae/sclerae/corneas clear. Ears: External ear normal. Hearing within normal limits for patient. No drainage. Nose: nares normal, septum midline, no drainage or nasal tenderness. Throat: phonation normal Neck: Supple, trachea midline, aspen collar, pain at baseline CARDIOVASCULAR: Regular rate and rhythm. No peripheral edema noted. 2+ pulses radial/DP/PT bilaterally. RESPIRATORY: Respiratory effort unlabored without use of accessory muscles. RA ABDOMINAL: Rounded, soft, nontender, nondistended, No guarding or peritoneal signs. GENITOURINARY: Normal genitalia for age without lesion or trauma. MUSCULOSKELETAL: Extremities atraumatic without gross deformity x4. SKIN: Skin warm and dry. No rashes or lesions. Intake/Output Summary (Last 24 hours) at 02/06/2023 1036 Last data filed at 02/06/2023 1025 Gross per 24 hour Intake 590 ml Output 720 ml Net -130 ml IMAGING [briefly note any results pertinent to today's evaluation]: MRI cervical LABS None new DAILY CHECKLIST: *Need for Restraints: no *Need for Urinary Catheter: no *Need for Central Access Devices: no *Stress Ulcer Prophylaxis: pepcid *VTE Prophylaxis (There is no height or weight on file to calculate BMI., Estimated Creatinine Clearance: 70.4 mL/min (by C-G formula based on SCr of 0.94 mg/dL).): on hold given injury;scds *Home Medications Reconciled: yes *Code Status: full Associated attestation - Andrew Rubio MD - 02/06/2023 1:46 PM EDT TRAUMA/ ACUTE CARE SURGERY ATTENDING NOTE Please link this note as an addendum to the resident or LASHA note with the same day of service. The patient was seen and examined by me, the attending trauma surgeon, on multidisciplinary rounds on the date of service listed above. I have reviewed the resident or LASHA note with the relevant labs, studies, and sap business objects consultant notes. I have reviewed and agree with the documented history, exam, and plan of care, with the following additions and corrections: Today: Hector Castorena is a 67 y.o. male presenting with TBI following fall. Repeat CT head 9.27 pm stable, will d/w nsg starting lovenox, likely 9.29 am. Pt also with b/l UE paresthesia in setting of stenosis on CT c spine. MRI c spine with degen changes, paresthesia with emili improvement but not resolved. Maintain collar, will f/u nsg recs, appreciate input. WIRE BOUND BOX MACHINE HELPER for cog eval. ENT evaluated for nasal fx, f/u outpt. Home meds, therapies, dispo planning pending nsg input. The aforementioned issues are severe. These issues do continue to pose a threat to life or bodily function. Pertinent labs and imaging personally reviewed with evidence of cervical stenosis, stable SDH. A comprehensive review of systems was performed with the pt and all systems reviewed were negative except those listed in the HPI. Pedro Luis Rubio MD, FACS, DABS, DABA Trauma, Acute Care Surgery, Surgical Critical Care, and Neurocritical Care Trauma Quick Note Discussed CT findings with Dr Walls, ENT this morning. He confirms this is not an open fracture and no need for antibiotics. Cont saline nasal spray as needed. Prior to MRI, Jose STINSON rep placed stimulator in MRI mode. MRI completed then Jose turned off MRI mode and place back in regular mode. Patient tolerated well. Problem: Actual or potential alteration in health Goal: Absence of healthcare acquired conditions Outcome: Partially Met Goal: Knowledge of Interdisciplinary Plan of Care Outcome: Partially Met Goal: Knowledge of Enviroment Outcome: Partially Met Problem: Pain Goal: Manage acute pain Outcome: Partially Met Goal: Manage chronic pain Outcome: Partially Met Goal: Reduced pain sensation Outcome: Partially Met Goal: Achievement of comfort function goal Outcome: Partially Met Problem: Falls, Risk of Goal: Absence of falls Outcome: Partially Met Patient is under fall precautions. ED Attestation: I have reviewed the Advanced Practice Provider's (LASHA's) documentation. In addition, I have personally introduced myself to the patient (face to face), and have taken his history and performed an examination. I agree with the physical findings, management, clinical impression and disposition. I did perform the substantive portion of this patient's encounter, including all aspects of the MDM. (Please note that portions of this note have been completed with a voice recognition software. Efforts were made to correct any errors, but occasionally words are mis-transcribed.) Associated Problem(s): Spinal pain Thoracic and lumbar spinal pain to palpation and with range of motion CT thoracic and lumbar negative -therapies Associated Problem(s): Traumatic subdural hematoma with loss of consciousness of 30 minutes or less (HCC) CT head with thin acute subdural hematoma along the right side of the falx, no mass effect or shift. No AC/AP meds, short LOC, GCS 15 Consult to neurosurgery -Every 2 hour neurochecks -We will repeat CT at 0600 Associated Problem(s): Open fracture of nasal bone Bilateral nasal bone fractures with small superficial laceration -Consult ENT -no breathing difficulty -wound care Associated Problem(s): Cervical strain Patient endorses cervical pain on palpation and endorses bilateral upper extremity paresthesias. CT cervical spine negative -Place patient in an Roland collar -MRI cervical ordered, patient does have brain stimulator [facility] will need to verify MRI compatibility -Bedrest Associated Problem(s): Fall Mechanical fall from standing. Did not hit head, likely short period of loss of consciousness. No AC\AP meds. -u/a negative. documented in this encounter [facility] 02-10-2023 Note Formatting of this n ote might be different from the original. Problem: Actual or potential alteration in health Goal: Absence of healthcare acquired conditions Outcome: Partially Met Goal: Knowledge of Interdisciplinary Plan of Care Outcome: Partially Met Goal: Knowledge of Enviroment Outcome: Partially Met Problem: Pain Goal: Manage acute pain Outcome: Partially Met Goal: Manage chronic pain Outcome: Partially Met Goal: Reduced pain sensation Outcome: Partially Met Goal: Achievement of comfort function goal Outcome: Partially Met Problem: Falls, Risk of Goal: Absence of falls Outcome: Partially Met [facility] 02-09-2023 Note Formatting of this n ote might be different from the original. Problem: Actual or potential alteration in health Goal: Absence of healthcare acquired conditions Outcome: Partially Met Goal: Knowledge of Interdisciplinary Plan of Care Outcome: Partially Met Goal: Knowledge of Enviroment Outcome: Partially Met Problem: Pain Goal: Manage acute pain Outcome: Partially Met Goal: Manage chronic pain Outcome: Partially Met Goal: Reduced pain sensation Outcome: Partially Met Goal: Achievement of comfort function goal Outcome: Partially Met Problem: Falls, Risk of Goal: Absence of falls Outcome: Partially Met [facility] 02-09-2023 Note Formatting of this n ote might be different from the original. Problem: Actual or potential alteration in health Goal: Absence of healthcare acquired conditions Outcome: Partially Met Goal: Knowledge of Interdisciplinary Plan of Care Outcome: Met Goal: Knowledge of Enviroment Outcome: Met Problem: Pain Goal: Manage acute pain Outcome: Partially Met Goal: Manage chronic pain Outcome: Partially Met Goal: Reduced pain sensation Outcome: Partially Met Goal: Achievement of comfort function goal Outcome: Partially Met Problem: Falls, Risk of Goal: Absence of falls Outcome: Partially Met [facility] 02-07-2023 Note Formatting of this n ote is different from the original. CHART REVIEW Reason for visit: Dietitian Screen Current diet order: Regular, no pork Current oral nutrition supplement: none Recent intake: 50%-75%. Dx/Pertinent clinical information: S/p fall. Past Medical History: Diagnosis Date Parkinson disease (HCC) Height: Current weight: BMI There is no height or weight on file to calculate BMI. Weight hx: Wt Readings from Last 5 Encounters: 02/04/23 64.4 kg (142 lb) Labs: Recent Labs 02/05/23 0015 02/05/23 0656 02/06/23 0523 NA 141 140 -- K 3.9 4.1 -- BICARB 25 23 -- CL 112* 111* -- GLUCOSE 114* 114* -- BUN 13 13 -- CREATININE 0.96 0.94 -- MG 1.9 -- -- PHOS 2.0* -- 2.7 Pt is at moderate nutritional risk at this time. An assessment will be completed within 6 days. RENNY Winter, RDN, LD [facility] 02-07-2023 Consult note Formatting of th is note is different from the original. Speech Pathology Concussion/TBI Eval Note Hector Castorena is a 67 y.o. male with pmhx of PD s/p DBS implantation admitted after mechanical fall from standing height on 02/04/2023. Patient has headaches and cervical pain with bilateral arm paresthesia since the fall with no myelopathic symptoms. CT results showing stable small interhemispheric SDH and no acute spinal fracture were reviewed with he patient. Pt may benefit from speech therapy to address Parkinson's-related motor speech and voice deficits. Endorses prior speech therapy services in [place]. Would consider ST x2-3/week following discharge to address above. Cognitive-linguistic presentation appears consistent w/ baseline. No further acute ST indicated. Will sign off. Auditory Comprehension Severity rating: WFL Expressive Language Severity rating: WFL Motor Speech Severity ratin-75% (Moderate), baseline per pt/CG report Cognition Severity rating: WFL, baseline per pt/CG report [place]/Level of Cognitive Functioning Scale (1-8) rating: Altaf[place] VIII- purposeful/appropriate Recommended Referrals: PT/OT Factors for returning to Prior Level of Function: Factors for Returning to Prior Level of Function Body Structure and Function: Musculoskeletal impairment, Neurologic impairment Explain Impairments: fall w/ interhemispheric SDH and cervical central stenosis. Hx Parkinson's Activities and Participation: Mobility limitation, Balance limitation and fall risk, ADL/IADL limitation, Communication limitation Explain Limitations: Deficits associated w/ Parkinson's Environmental Factors: Home situation, Family/caregiver support Explain Environmental Factors: Lives w/ multiple family members Personal Factors: Awareness of own capacity and performance Explain Personal Factors: Voices insight Skilled therapy needs: Skilled Therapy Needs: Are Skilled Therapy Services Needed After Discharge: No (Cognitive-linguistic intervention not indicated. 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[employer]) Living Situation: With others, Manages own medications, Manages own finances (drives occassionally) Prior Speech Deficit: Dysarthria, Per chart review, Per patient report, Prior Speech Therapy services (speech and voice deficits related to Parkinsons) Prior Language Deficit: No known previous deficits Prior Cognitive Deficit: No known previous deficits Other pertinent diagnoses affecting cog/comm/voice: Neurodegenerative disease, mTBI/concussion Baseline Assessment Subjective Impression: Alert, Cooperative, Pleasant Mood Respiratory Status: Room air Auditory Comprehension: Auditory Comp Impression-Severity Scale: WFL Commands: Within Functional Limits Identification Tasks: Within Functional Limits Yes/No Questions: Within Functional Limits Conversational Speech: Within Functional limits Expressive Language: Expressive Language Impression-Severity: WFL Primary Mode of Expression: Verbal Aphasia: None present Repetition: WFL Automatic Speech: WFL Sentence Completion: WFL Naming: WFL Narrative: WFL Cognitive-Communication: Speech Cognition Impression-Severity: WFL, baseline per pt/CG report Orientation Level: Oriented x4 Attention: Within Functional Limits Memory: Within Funtional Limits Additional Observation: Recalls medical plan of care, Uses memory strategies Verbal Problem Solving: Within Functional Limits Abstract Thinking: Within Functional Limits Safety/Judgement: Within Functional Limits Behavioral Observations: good awareness of safety precautions Insight: Good awareness of impairment, Good insight into impact of injury/deficits Task Initiation: WFL Flexibility of Thought: Within functional limits Organization: Within functional limits Concussion/TBI: Concussion: Baseline Vestibular Screening Tool: No Patient endorses: (denies acute symptoms) Patient O-Log (Orientation Log) Score - Cut off score 25 or better on two separate administrations: Orientation-Log Orientation-log: Yes City: [address]: 3 Name of Hospital: 3 Month: 3 Date: 3 Year: 3 Day of Week: 3 Clock Time: 3 Etiology / Event: 3 Pathology Deficits: 3 Orientation Log Total Score (out of 30): 30 Orientation Log 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 Repeat Orientation-Log: No Patient Cog-Log (Cognitive Log) Score - Cut off score 25 or better: Cognitive-Log Cognitive-log: Yes Date: 3 Clock Time: 3 Name of Hospital: 3 Repeat Address: 2 20 to 1: 3 Months Reversed: 3 30 Seconds: 2 Fist Edge-Palm: 1 Go / No-Go: 3 Address Recall: 2 Cognitive Log Total Score (out of 30): 25 Cognitive Log Impression: Score suggests within functional limits attention/concentration and memory. Concussion Symptom Scoring - SCAT5: Concussion Symptom Scoring SCAT5 Concussion Symptom Scoring SCAT5: No WIRE BOUND BOX MACHINE HELPER Caregiver Readiness: WIRE BOUND BOX MACHINE HELPER Caregiver Readiness Working toward discharge home: Yes WIRE BOUND BOX MACHINE HELPER Caregiver Training: Completed Who was trained?: (patient) Provided training for: Communication - completed, Cognition - completed, Energy conservation - completed, TBI/PCS - completed Caregiver response to training: Verbalizes understanding (written education provided) Speech Plan: Further acute Speech Therapy services indicated: No Past Medical History: Diagnosis Date Parkinson disease (HCC) Past Surgical History: Procedure Laterality Date DEEP BRAIN STIMULATOR PLACEMENT From [facility] HERNIA REPAIR Speech Pathology Concussion/TBI Treatment Note Total Treatment Time (Total Session Time): 36 Minutes Concussion/mTBI education: Concussion/mTBI education completed with patient; handout provided. Discussed possible concussion/mTBI symptoms, their potential interference with IADLs, the possibility of delayed onset of symptoms with an increase in patient activity, and management strategies; including rationale for a transitional approach to gradual increases in length, level and complexity of activities and/or responsibilities. Education also provided regarding the importance of prevention of future TBI and the ill effects of alcohol and illicit substance use on concussion recovery and brain health. Patient verbalized appropriate understanding of ST education and recommendations. Patient was able to independently state 3 possible concussion/mTBI symptoms to monitor for during recovery period, 3 strategy/strategies to utilize to manage symptoms, and what to do if concerns arise/persist. Concussion/TBI: Skilled Intervention/treatment: Patient education/training, Written instructions/handout provided and reviewed Patient Response to Intervention: Verbalized comprehension of presented information, Improved ability to understand / adhere to precautions For complete objective data, detailed plan of care, and education refer to: Speech Comm/Cog Eval flow sheet, as well as patient Plan of Care and Education documentation. This note stands as the current Discharge Summary upon patient discharge from the hospital or completion of Speech Pathology Plan of Care [facility] 02-07-2023 Note Formatting of this n ote might be different from the original. Problem: Actual or potential alteration in health Goal: Absence of healthcare acquired conditions Outcome: Partially Met Goal: Knowledge of Interdisciplinary Plan of Care Outcome: Partially Met Goal: Knowledge of Enviroment Outcome: Partially Met Problem: Pain Goal: Manage acute pain Outcome: Partially Met Goal: Manage chronic pain Outcome: Partially Met Goal: Reduced pain sensation Outcome: Partially Met Goal: Achievement of comfort function goal Outcome: Partially Met Problem: Falls, Risk of Goal: Absence of falls Outcome: Partially Met [facility] 02-07-2023 Note Formatting of this n ote might be different from the original. Problem: Actual or potential alteration in health Goal: Absence of healthcare acquired conditions Outcome: Partially Met Goal: Knowledge of Interdisciplinary Plan of Care Outcome: Partially Met Goal: Knowledge of Enviroment Outcome: Partially Met Problem: Pain Goal: Manage acute pain Outcome: Partially Met Goal: Manage chronic pain Outcome: Partially Met Goal: Reduced pain sensation Outcome: Partially Met Goal: Achievement of comfort function goal Outcome: Partially Met Problem: Falls, Risk of Goal: Absence of falls Outcome: Partially Met Patient is on fall precautions. Patient is given pain medication and reoriented when needed. [facility] 02-06-2023 Note Formatting of this n ote is different from the original. Neurosurgery Sign-Off Consulting Neurosurgeon: Dr Lozoya Diagnosis: Interhemispheric SDH and cervical central stenosis Plan: Roland collar cleared. F/U in clinic with repeat head CT Follow-up: With Dr. Lozoya in 2 weeks. Medications: Per primary team DVT Prophylaxis: Per primary team Braces: Not Applicable Activity: No Brace Needed Discharge instructions updated with appropriate follow-up. The Neurosurgery service will sign off at this time. Please re-consult with any questions, concerns or clinical updates. T [facility] 02-06-2023 Note Formatting of this n ote might be different from the original. SPEECH THERAPY VISIT VARIANCE NOTE Attempted to see patient at this time, but unable secondary to: Visit Variance: Unable to Participate. Pt asleep on entry, 1:1 sitter indicates pt just got comfortable and fell asleep. Will follow up as appropriate. T [facility] 02-06-2023 Consult note Formatting of th is note is different from the original. Physical Therapy PHYSICAL THERAPY EVALUATION and TREATMENT NOTE PHYSICAL THERAPY EVALUATION Skilled Therapy Needs After Discharge Anticipate Resolution of Current Assessment Limitations Including: Mechanical Barriers, Social Support Are Skilled Therapy Services Needed After Discharge: Yes Intensity of Skilled Therapy: 5 to 7 days per week Anticipated Duration of Skilled Therapy: Duration 7 - 10 days Rehab Potential: Good Outcomes Measures Prior Function - Basic Mobility Raw Score: 24 Points Prior Function - Basic Mobility % Impaired: 0% AM-PAC Basic Mobility Raw Score: 12 Points AM-PAC Basic Mobility % Impaired: 61.94% Physical Therapy Assessment Traumatic subdural hematoma with loss of consciousness of 30 minutes or less (HCC Spinal pain Open fracture of nasal bone Cervical strain History: Mr. Castorena is a 67-year-old male with past medical history of Parkinson disease that has a deep brain stimulator that was placed at [facility] as well as hernia repair that presents to [facility] ED status post mechanical fall yesterday. CT head and face note subdural hematoma as well as bilateral nasal bone fractures, CT cervical was negative and patient was transferred to [place] for tertiary trauma exam. On arrival patient states fall was witnessed, he did have a short loss of consciousness, he denies any AC\AP meds. Patient's GCS was 15 on arrival, he does have baseline tremors from his Parkinson's that he states is worse at this time because he has not had his evening medications. The following factors influence the patient's participation in the PT plan of care: Personal Factors: Age, Social Barriers Environmental Factors: Multi-level home, Steps to enter home The following co-morbidities (from this admission or prior) influence the patient's participation in this plan of care: please see H&P for details Number of History elements affecting this patient's PT plan of care: 3 or more Examination of Body Systems: The patient presents with: Musculoskeletal impairments: Strength, Functional Endurance Neurologic Impairments: Balance, Coordination, Cognition Cardiopulmonary Impairments: Activity Tolerance, Edema Integumentary Impairments: Skin Integrity Other Impairments: Psychological Health. These impairments result in limitations of Gait, Functional Transfers, Stair-Climbing, Safety, Safety Awareness, Activity Tolerance, Insight. These impairments result in restrictions of Household mobility, Community mobility. Number of Body Systems elements affecting this patient's PT plan of care: 4 or more. Clinical Presentation: The patient's clinical presentation for this PT evaluation is evolving with changing characteristics as evidenced by current PT documentation. Activity Tolerance Activity Tolerance: Tolerates 10 - 20 min activity with multiple rests Therapy Precautions Orthotic Devices: Yes Spine / Trunk / Head: Cervical Collar, at all times General Rehab Precautions: Cervical, Fall risk (2 person pivot) Balance Assessment Sitting Balance - Static: Contact guard assist Sitting Balance - Dynamic: Minimal assist Loss of Balance - Sitting Dynamic: posterior Standing Balance - Static: Contact guard assist Slip Bridge Operator - Standing Static: wheeled walker Loss of Balance- Standing Static: posterior, intermittent Standing Balance - Dynamic: Contact guard assist, 2 person (min x 1) Slip Bridge Operator - Standing Dynamic: wheeled walker Loss of Balance- Standing Dynamic: multidirectional, intermittent Bed Mobility Rolling: Moderate assist Supine to Sit: Moderate assist Sit to Supine: Moderate assist Transfers Sit to Stand: Minimal assist, 2 person assist Bed to Chair: Contact guard assist, 2 person assist Stand Pivot Transfers: Contact guard assist, 2 person assist Slip Bridge Operator: wheeled walker Gait/Locomotion Gait Assistance: (unsafe to ambulate at this time) Home Living Obtained Home Living and PLOF info from: Patient, Review of patient s medical record Unable to obtain Home Living and PLOF info on initial eval: Patient is a questionable historian Lives With: Family (2 brothers, sister, SAM, niece) Type of Home: House Home Layout: Two level, Able to live on main level with bedroom/bathroom, Performs ADLs on one level Steps to enter home: Yes Rails to enter home: None Number of stairs to enter home: 3 Bathroom Shower/Tub: Tub/shower unit, Main level Bathroom Toilet: Standard Bathroom Equipment: Grab bars in shower, Shower chair, Hand-held showerhead Mobility Equipment: Cane ADL Equipment: Sock aid, Gun Stock Checker, Long handled shoe horn Prior Level of Function Receives Help From: Family Level of [place] - Transfers/Ambulation/Mobility: Independent with functional transfers, Independent with household ambulation, Independent with community ambulation Level of [place] - ADLs: Independent with ADLs, except (Brother helps with shaving) Level of [place] - Homemaking: Independent Driving: Patient drives Vocational: Retired Subjective Impression - Prior Function: pt lives with family(brothers and sisters) in a large home. pt repors cooking for family and does on occasion use a cane PHYSICAL THERAPY TREATMENT NOTE Total Treatment Time (Total Session Time): 25 Minutes Total Timed Code Treatment Minutes: 10 Minutes Neuromuscular Reeducation Standing Balance Treatment: weight shifting left, weight shifting right, upright gaze Skilled Intervention Provided: verbal cues, tactile cues, visual cues For: necessary precautions Resulting in: improved awareness Gait Training Therapeutic Activities Bed Mobility Skilled Intervention Provided: verbal cues, tactile cues, visual cues For: attention to task, necessary precautions Resulting in: improved awareness, improved performance, improved safety Transfers Skilled Intervention Provided: verbal cues, tactile cues, visual cues, provided step by step instructions For: attention to task, initiation of task, necessary precautions Resulting in: improved awareness, improved performance, improved safety Functional Transfers (Car and/or Toilet Transfers) Therapeutic Exercises Additional Treatment Details Pt. educated on precautions, discharge planning, and mobility through verbal instruction and demonstration. Pt demonstrated understanding of education and billed 1 unit therapeutic activity for education. Past Medical History: Diagnosis Date Parkinson disease (HCC) Past Surgical History: Procedure Laterality Date DEEP BRAIN STIMULATOR PLACEMENT From [facility] HERNIA REPAIR For complete objective data, detailed plan of care and patient education refer to: PT Evaluation flowsheet, PT Evaluation and Treatment flowsheet, PT Treatment flowsheet, patient Plan of Care, Plan of Care progress note, and Patient Education. This note stands as the current Discharge Summary upon patient discharge from the hospital or completion of Physical Therapy Plan. [facility] 02-06-2023 Consult note Formatting of th is note is different from the original. Occupational Therapy OCCUPATIONAL THERAPY EVALUATION Dx: Traumatic subdural hematoma with LOC Spinal pain Open fx of nasal bone Cervical strain Skilled Therapy Needs After Discharge Anticipate Resolution of Current Assessment Limitations Including: Pain, Mechanical Barriers, Social Support Are Skilled Therapy Services Needed After Discharge: Yes Intensity of Skilled Therapy: 5 to 7 days per week Anticipated Duration of Skilled Therapy: Duration 7 - 10 days DME Recommendation: To be determined at next level of care Rehab Potential: Good, For goals Outcomes Measures Prior Function Daily Activity Raw Score: 23 Prior Function Daily Activity % Impaired: 15.86% AM-PAC Daily Activity Raw Score: 17 AM-PAC Daily Activity % Impaired: 50.11% Occupational Therapy Assessment The patient's current functional participation deficits are feeding, grooming, UE dressing, LE dressing, bathing, toileting, functional mobility, driving. This reduced independence will limit their life roles of premorbid level individual, family member. The patient's co morbidities do significantly affect patient performance in the above activities and roles. The performance deficits are a result of musculoskeletal, neurological impairment(s) in generalized debility including strength, balance, coordination, dexterity, acitvity tolerance, pain, safety, insight, problem solving, and knowledge deficit. The patient's family / caregiver support is a communication and outreach manager for return to prior level of function. The patient's compliance is a communication and outreach manager to return to prior level of function. During the assessment, minimal to moderate modification of task was required and several treatment options were identified in the plan of care. This consultation required expanded review of the medical and therapy history. Activity Tolerance Activity Tolerance: Tolerates 10 - 20 min activity with multiple rests Therapy Precautions Orthotic Devices: Yes Spine / Trunk / Head: Cervical Collar Weight Bearing Status: WFL General Rehab Precautions: Cervical, Fall risk Cognition Overall Cognitive Status: Within Functional Limits Arousal/Alertness: Appropriate responses to stimuli Orientation Level: Oriented to person, Oriented to place Executive functioning: Processing delay, Planning / Organizing Safety Judgment: Decreased awareness of need for safety, Decreased awareness of need for assistance Problem Solving: Assistance required to identify errors made, Assistance required to generate solutions, Assistance required to implement solutions Attention: Attends to quiet environment Hearing Status: WFL Social Interaction: Cooperative (Pt very soft spoken, difficult to understand.) UE Function Bilateral AROM is WFL. Proximal strength not assessed d/t cervical strain. Grasp is about 4/5 bilaterally. ADL Grooming: Minimal assist (Assist to open containers for oral care seated.) Lower Body Dressing: Stand by assist, Minimal assist (Don/doff bilateral socks seated in chair via figure 4 technique with SBA. Min A for standing balance for clothing management in standing.) Toileting: Minimal assist (Assist for clothing management.) Functional Mobility: Minimal assist, Adaptive equipment, Additional time Bed Mobility Not assessed d/t pt seated in chair upon OT arrival. Functional Transfers Sit to Stand: Contact guard assist, Minimal assist (from chair to FWW. Verbal cues to push up from arm rests rather than pulling on FWW.) Slip Bridge Operator: wheeled walker Additional Assessment Details Sitter present at beginning and end of OT evaluation. Pt left seated in chair, call light within reach, and alarm turned on. Home Living Obtained Home Living and PLOF info from: Patient, Review of patient s medical record Unable to obtain Home Living and PLOF info on initial eval: Patient is a questionable historian Lives With: Family (2 brothers, sister, SAM, niece) Type of Home: House Home Layout: Two level, Able to live on main level with bedroom/bathroom, Performs ADLs on one level Steps to enter home: Yes Rails to enter home: None Number of stairs to enter home: 3 Bathroom Shower/Tub: Tub/shower unit, Main level Bathroom Toilet: Standard Bathroom Equipment: Grab bars in shower, Shower chair, Hand-held showerhead Mobility Equipment: Cane ADL Equipment: Sock aid, Gun Stock Checker, Long handled shoe horn Prior Level of Function Receives Help From: Family Level of [place] - Transfers/Ambulation/Mobility: Independent with functional transfers, Independent with household ambulation, Independent with community ambulation Level of [place] - ADLs: Independent with ADLs, except (Brother helps with shaving) Level of [place] - Homemaking: Independent Driving: Patient drives (Does not drive often) Vocational: Retired Subjective Impression - Prior Function: Pt is very soft spoken and difficult to understand at times. Reports he lives in a 2 story home with multiple family members. Reports he has recently been using a cane for ambulation. Reports mod I with ADLs except for assist from brother to shave his face. Past Medical History: Diagnosis Date Parkinson disease (HCC) Past Surgical History: Procedure Laterality Date DEEP BRAIN STIMULATOR PLACEMENT From [facility] HERNIA REPAIR For complete objective data, detailed plan of care and patient education refer to: OT Evaluation flowsheet, OT Evaluation and Treatment flowsheet, OT Treatment flowsheet, patient Plan of Care, Plan of Care progress note, and Patient Education. This note stands as the current Discharge Summary upon patient discharge from the hospital or completion of Occupational Therapy Plan of Care. [facility] 02-06-2023 Note Formatting of this n ote is different from the original. [facility] DAILY PROGRESS NOTE ========MECHANISM: Fall DIAGNOSIS / REASON FOR CONSULT: Traumatic subdural hematoma with loss of consciousness of 30 minutes or less ([facility]) Assessment & Plan CT head with thin acute subdural hematoma along the right side of the falx, no mass effect or shift. Repeat imaging stable. No AC/AP meds, short LOC, GCS 15 Nsx following, continue neuro checks ST ordered for cog eval Some agitation overnight and received a dose of Haldol, better this AM, delirium prevention measures Spinal pain Assessment & Plan Thoracic and lumbar spinal pain to palpation and with range of motion CT thoracic and lumbar negative -therapies , resolved Open fracture of nasal bone Assessment & Plan Bilateral nasal bone fractures with small superficial laceration -nasal spray; no atb needed -no breathing difficulty -wound care Cervical strain Assessment & Plan Patient endorses cervical pain on palpation and endorses bilateral upper extremity paresthesias. CT cervical spine negative, pain is back to baseline -MRI completed, ok to ambulate with collar, paresthesias in b/l arms improving INCIDENTAL FINDINGS: RESOLVED PROBLEMS: SURGERIES/PROCEDURES: Date Operation/Procedure Provider Name ========TODAY'S ASSESSMENT AND PLAN OF CARE: As above DISPOSITION - ========CHIEF COMPLAINT/ HPI / PFSHx / EVENTS OVER LAST 24HRS: Pt agitated overnight and received a dose of haldol. Better this AM. No complaints. Paresthesias improving. Neck pain at baseline REVIEW OF SYSTEMS: Other than the above items the remainder of the complete ROS is otherwise unchanged from admission. PHYSICAL EXAM: Temp: [97.4 F (36.3 C)-98.6 F (37 C)] 98.6 F (37 C) Heart Rate: [56-81] 81 Resp: [15-20] 17 BP: (98-160)/(74-94) 136/87 GENERAL: Appears age appropriate. No acute distress. NEUROLOGICAL: Alert and oriented. Follows commands with extremities x4, No focal neurologic deficits noted. GCS = 14; b/l UE paresthesias from elbows to fingertips , improving Head Eyes Ear Nose Throat: Head: Atraumatic, normocephalic. Eyes: Conjunctivae/sclerae/corneas clear. Ears: External ear normal. Hearing within normal limits for patient. No drainage. Nose: nares normal, septum midline, no drainage or nasal tenderness. Throat: phonation normal Neck: Supple, trachea midline, aspen collar, pain at baseline CARDIOVASCULAR: Regular rate and rhythm. No peripheral edema noted. 2+ pulses radial/DP/PT bilaterally. RESPIRATORY: Respiratory effort unlabored without use of accessory muscles. RA ABDOMINAL: Rounded, soft, nontender, nondistended, No guarding or peritoneal signs. GENITOURINARY: Normal genitalia for age without lesion or trauma. MUSCULOSKELETAL: Extremities atraumatic without gross deformity x4. SKIN: Skin warm and dry. No rashes or lesions. Intake/Output Summary (Last 24 hours) at 02/06/2023 1036 Last data filed at 02/06/2023 1025 Gross per 24 hour Intake 590 ml Output 720 ml Net -130 ml IMAGING [briefly note any results pertinent to today's evaluation]: MRI cervical LABS None new DAILY CHECKLIST: *Need for Restraints: no *Need for Urinary Catheter: no *Need for Central Access Devices: no *Stress Ulcer Prophylaxis: pepcid *VTE Prophylaxis (There is no height or weight on file to calculate BMI., Estimated Creatinine Clearance: 70.4 mL/min (by C-G formula based on SCr of 0.94 mg/dL).): on hold given injury;scds *Home Medications Reconciled: yes *Code Status: full Associated attestation - Andrew Rubio MD - 02/06/2023 1:46 PM EDT TRAUMA/ ACUTE CARE SURGERY ATTENDING NOTE Please link this note as an addendum to the resident or LASHA note with the same day of service. The patient was seen and examined by me, the attending trauma surgeon, on multidisciplinary rounds on the date of service listed above. I have reviewed the resident or LASHA note with the relevant labs, studies, and sap business objects consultant notes. I have reviewed and agree with the documented history, exam, and plan of care, with the following additions and corrections: Today: Hector Castorena is a 67 y.o. male presenting with TBI following fall. Repeat CT head 9.27 pm stable, will d/w nsg starting lovenox, likely 9.29 am. Pt also with b/l UE paresthesia in setting of stenosis on CT c spine. MRI c spine with degen changes, paresthesia with emili improvement but not resolved. Maintain collar, will f/u nsg recs, appreciate input. WIRE BOUND BOX MACHINE HELPER for cog eval. ENT evaluated for nasal fx, f/u outpt. Home meds, therapies, dispo planning pending nsg input. The aforementioned issues are severe. These issues do continue to pose a threat to life or bodily function. Pertinent labs and imaging personally reviewed with evidence of cervical stenosis, stable SDH. A comprehensive review of systems was performed with the pt and all systems reviewed were negative except those listed in the HPI. Pedro Luis Rubio MD, FACS, DABS, DABA Trauma, Acute Care Surgery, Surgical Critical Care, and Neurocritical Care [facility] 02-06-2023 Note Formatting of this n ote might be different from the original. Trauma Quick Note Discussed CT findings with Dr Walls, ENT this morning. He confirms this is not an open fracture and no need for antibiotics. Cont saline nasal spray as needed. T [facility] Work Phone: 02-06-2023 Note Formatting of this n ote might be different from the original. Prior to MRI, Jose DBS rep placed stimulator in MRI mode. MRI completed then Jose turned off MRI mode and place back in regular mode. Patient tolerated well. [facility] 02-06-2023 Consult note Associated Order (s): IP CONSULT TO CARE MANAGEMENT; IP CONSULT TO CARE MANAGEMENT Care Management Consult Note Date: 02/06/2023 Time: 9:00 AM Patient Name: Hector Castorena Date of : 1955 Reason for Consult: Discharge Needs Discharge Needs Discharge Plan: Discharging Transportation Plan: Discharge Plan Status: Consult received from [facility] if needed. Alcohol lab not drawn. Audit-C not completed by nursing at this time. Per conversation with nursing, patient was having some confusion overnight. Will check on patient status later today and see if appropriate. 1150- In to see patient. A brief conversation occurred as patient was sleepy. Patient is from home and resides with multiple family members. Patient reports his two brothers, his sister, his [id number], and niece all reside together. Patient reports the home is multi-story. Patient reports no issues managing the stairs prior. Patient reports he still drives but it is rare. Patient reports his family usually helps with rides. Patient listed on no PCP. Patient reports he does have a physician but this worker could not understand the name at this time. Patient reports no issues obtaining or affording his medications prior to admission. Began to briefly discuss discharge planning. Patient thinks he will be able to return home with family assistance. Patient encouraged to see how he does with therapy again tomorrow. Will follow up with patient to discuss discharge planning further when he is more awake and has had a chance to work with therapy again. Assessment and Background Information: Living Arrangements: Family members Caregiver Identified: Yes Caregiver's Name: Family members Support Systems: Family members Assistance Needed: Independent prior Type of Residence: Private residence Prior to Admission Home Care Services: No Patient expects to be discharged to:: Home Current Home Equipment: Cane, Walker, Tub/Shower chair [facility] 02-06-2023 Note Formatting of this n ote might be different from the original. Problem: Actual or potential alteration in health Goal: Absence of healthcare acquired conditions Outcome: Partially Met Goal: Knowledge of Interdisciplinary Plan of Care Outcome: Partially Met Goal: Knowledge of Enviroment Outcome: Partially Met Problem: Pain Goal: Manage acute pain Outcome: Partially Met Goal: Manage chronic pain Outcome: Partially Met Goal: Reduced pain sensation Outcome: Partially Met Goal: Achievement of comfort function goal Outcome: Partially Met Problem: Falls, Risk of Goal: Absence of falls Outcome: Partially Met Patient is under fall precautions. [facility] 02-05-2023 Consult note Associated Order (s): IP CONSULT TO NEUROSURGERY Neurological Surgery Consultation Assessment & Plan: Hector Castorena is a 67 y.o. male with pmhx of PD s/p DBS implantation admitted after mechanical fall from standing height on 02/04/2023. Patient has headaches and cervical pain with bilateral arm paresthesia since the fall with no myelopathic symptoms. CT results showing stable small interhemispheric SDH and no acute spinal fracture were reviewed with he patient. His cervical MRI was already requested to rule-out a structural etiology for the arm paresthesia. Discussed with RN need to coordinate with the [employer] DBS circulation sales representative for performing the MRI. Can ambulate with collar, will reassess after the MRI. Subjective Chief Complaint/reason for consult: SDH History of Present Illness: Hector Castorena is a 67 y.o. male with pmhx of PD s/p DBS implantation admitted after mechanical fall from standing height on 02/04/2023. Patient had episode of LOC but no seizure. Reports increased cervical pain and bilateral circumferential paresthesia and pain in bilateral hands and forearm since the fall. No other focal neurological symptoms. Has some frontal headaches that improved since admission. Hemodynamically stable with no other complaints. Review of Systems: All other systems reviewed and negative other than HPI Objective BP (!) 156/87 (BP Location: Right arm, Patient Position: Lying) Pulse 72 Temp 97.4 F (36.3 C) (Axillary) Resp 17 SpO2 99% General Appearance: Alert, well appearing, and in no acute distress. Alert, oriented x 3. PERRL at 3mm, EOMI, V1-3 intact, face symmetric, hearing intact, palate rise symmetric, tongue midline, 5/5 trapezius. Right> left arm large amplitude tremor Pain at palpation of midline cervical and paraspinal posterior and upper thoracic spine, no step-off. Roland collar in place RUE: 4+/5 delt, 5/5 bi, 5/5 tri, 5/5 we, 5/5 wf, 5/5 director of clinical applications/int LUE: 4+/5 delt, 5/5 bi, 5/5 tri, 5/5 we, 5/5 wf, 5/5 director of clinical applications/int RLE: 5/5 hf, 5/5 ke, 5/5 df, 5/5 pf, 5/5 ehl LLE: 5/5 hf, 5/5 ke, 5/5 df, 5/5 pf, 5/5 ehl Circumferential paresthesia and pain in bilateral hands and forearm, stable Symmetric 1/4 DTRs. No Marya, no clonus, no Babinski. Head: abrasion over nasion, no active drainage, no otorrhea/rhinorrhea Eyes: PERRL, EOMI, no icterus Neck: supple, normal ROM, no meningismus CV: regular pulses, no peripheral edema, no calf tenderness Resp: no respiratory distress, no use of accessory muscle Abdomen: non-distended Musculoskeletal: normal bulk, rigidity in all 4 extremities Past Medical History: Past Medical History: Diagnosis Date Parkinson disease (HCC) Past Surgical History: Past Surgical History: Procedure Laterality Date DEEP BRAIN STIMULATOR PLACEMENT From [facility] HERNIA REPAIR Family History: History reviewed. No pertinent family history. Social History: Social History Socioeconomic History Marital status: Single Tobacco Use Smoking status: Never Smokeless tobacco: Never Substance and Sexual Activity Alcohol use: Not Currently Drug use: Never Allergies: No Known Allergies Medications: Home medications: Prior to Admission medications Medication Sig Start Date End Date Taking? Authorizing Provider carbidopa-levodopa (SINEMET) 25-100 mg per tablet Take 1 (one) tablet by mouth 5 (five) times a day . 02/01/23 Provider, MD [facility] medications bacitracin zinc Topical BID carbidopa-levodopa 1 tablet Oral 5x Daily famotidine (PEPCID) injection 20 mg Intravenous Q12H KINGSLEY sod phos di, mono-K phos mono 250 mg Oral Q6H sodium chloride (PF) 5 mL Intravenous Q8H KINGSLEY sodium chloride 0.9 % 50 mL/hr (02/05/23 0403) acetaminophen, albuterol, ondansetron OR ondansetron, Saline lock IV AND sodium chloride (PF) AND sodium chloride (PF) AND sodium chloride 0.9 % Vital Signs: Current: BP (!) 156/87 (BP Location: Right arm, Patient Position: Lying) Pulse 72 Temp 97.4 F (36.3 C) (Axillary) Resp 17 SpO2 99% Last 24 hours: Temp Av F (36.7 C) Min: 97.4 F (36.3 C) Max: 98.7 F (37.1 C) Pulse Av.3 Min: 64 Max: 105 Resp Av.1 Min: 14 Max: 23 SpO2 Av.4 % Min: 95 % Max: 99 % Labs: Lab Results Component Value Date NA 140 02/05/2023 INR 1.1 02/05/2023 HGB 14.9 02/05/2023 CREATININE 0.94 02/05/2023 WBC 9.49 02/05/2023 PLT 269 02/05/2023 Laboratory and Additional Data Reviewed: Reviewed 02/05/23 1:38 PM: Laboratory, Radiology, Cardiology, Medications, and Transcriptions Radiology: CT Head Or Brain Without Contrast Final Result 1. Stable appearance of inter hemispheric subdural hematoma as compared to the prior study. This measures 3.17 mm in thickness. 2. Stable appearance and no change in bilateral thalamic deep brain stimulators. 3. Atrophy. Workstation ID: [id number] CT Lumbar Spine Reconstructed Final Result 1. No evidence of acute traumatic abnormality in the chest, abdomen or pelvis. 2. Mild bibasilar atelectasis. 3. Thoracic degenerative disc disease and lumbar facet arthropathy without fracture or subluxation. [employer] Workstation ID: [id number] CT Thoracic Spine Reconstructed Final Result 1. No evidence of acute traumatic abnormality in the chest, abdomen or pelvis. 2. Mild bibasilar atelectasis. 3. Thoracic degenerative disc disease and lumbar facet arthropathy without fracture or subluxation. [employer] Workstation ID: [id number] CT Chest Abdomen Pelvis Without Contrast Final Result 1. No evidence of acute traumatic abnormality in the chest, abdomen or pelvis. 2. Mild bibasilar atelectasis. 3. Thoracic degenerative disc disease and lumbar facet arthropathy without fracture or subluxation. [employer] Workstation ID: [id number] MR Cervical Spine Without Contrast (Results Pending) Interpretation of Testing: I personally reviewed the head CT, CT of the cervical/thoracic/lumbar spine and agree with the interpretation(s). Stable interhemispheric SDH with no mass effect, multilevel degenerative spinal changes with no acute fracture. No severe spinal canal stenosis, no disconnection in DBS system Jojo Lozoya MD 1:38 PM 02/05/23 [facility] 02-05-2023 Emergency department Note Bed: 35 Expected date: Expected time: Means of arrival: Comments: RM20 [facility] 02-05-2023 Emergency department Note Bed: 35 Expected date: Expected time: Means of arrival: Comments: RM20 Updated emergency contacts via phone. [facility] EMERGENCY DEPARTMENT LASHA NOTE: NAME: Hector Castorena CSN: [id number] 67 y.o. PCP: No, Physician History: Chief Complaint: No chief complaint on file. HPI: The history was obtained from the patient. Hector is a 67 y.o. male who presents with a chief complaint of No chief complaint on file.. Patient was seen at the [facility] emergency department after mechanical fall and was diagnosed with subdural hematoma and facial bone fractures. Patient transferred here for further evaluation by trauma. PMHx: Past Medical History: Diagnosis Date Parkinson disease (HCC) PMSx: Past Surgical History: Procedure Laterality Date DEEP BRAIN STIMULATOR PLACEMENT From [facility] HERNIA REPAIR FAM. Hx: History reviewed. No pertinent family history. SOC. Hx: Social History Socioeconomic History Marital status: Single Tobacco Use Smoking status: Never Smokeless tobacco: Never Substance and Sexual Activity Alcohol use: Not Currently Drug use: Never MEDs: Previous Medications Medication Sig carbidopa-levodopa (SINEMET) 25-100 mg per tablet Take 1 (one) tablet by mouth 5 (five) times a day . ALL: No Known Allergies ROS: Review of Systems Positives and pertinent negatives as per HPI. All other systems were reviewed and are negative. Physical Exam: Patient Vitals for the past 24 hrs: BP Temp Pulse Resp SpO2 02/05/23 0230 (!) 154/95 -- 83 (!) 21 96 % 02/05/23 0215 -- -- (!) 105 17 96 % 02/05/23 0200 125/87 -- 85 (!) 19 96 % 02/05/23 0130 -- -- 87 (!) 20 96 % 02/05/23 0126 -- -- 88 (!) 20 96 % 02/05/23 0115 -- -- 88 18 96 % 02/05/23 0100 -- -- 92 14 96 % 02/05/23 0045 -- -- 90 (!) 20 97 % 02/04/23 2339 (!) 154/113 98.7 F (37.1 C) 88 (!) 20 97 % Physical Exam Vitals and nursing note reviewed. Constitutional: General: He is not in acute distress. HENT: Mouth/Throat: Mouth: Mucous membranes are moist. Eyes: Conjunctiva/sclera: Conjunctivae normal. Cardiovascular: Rate and Rhythm: Normal rate and regular rhythm. Musculoskeletal: General: Normal range of motion. Pulmonary: Effort: Pulmonary effort is normal. Breath sounds: Normal breath sounds. Abdominal: Palpations: Abdomen is soft. Tenderness: There is no abdominal tenderness. There is no guarding. Skin: General: Skin is warm and dry. Comments: Facial abrasions Neurological: General: No focal deficit present. Mental Status: He is alert and oriented to person, place, and time. Psychiatric: Mood and Affect: Mood normal. Laboratory & Radiological Imaging (if done): Labs Reviewed COMPREHENSIVE METABOLIC PANEL - Abnormal; Notable for the following components: Result Value Chloride 112 (*) Anion Gap 8 (*) Glucose 114 (*) Calcium 8.2 (*) ALT 11 (*) All other components within normal limits Narrative: [facility] has implemented the eGFR calculation approach that does not have a coefficient for race that conforms to the NKF-ASN Task Force Recommendations. PHOSPHORUS - Abnormal; Notable for the following components: Phosphorus 2.0 (*) All other components within normal limits URINALYSIS - Abnormal; Notable for the following components: pH, Urine 7.5 (*) All other components within normal limits Narrative: Microscopic examination is performed on all urinalysis samples and only positive findings are reported. The test for blood on the chemical analytic portion of urinalysis may also be positive due to hemoglobinuria and myoglobinuria and if red blood cells are present they are quantified by microscopic examination. MAGNESIUM LEVEL - Normal PT/INR - Normal Narrative: During the induction phase of oral anticoagulation, the INR may not reflect the anticoagulation status of the patient. Therapeutic ranges for INR's are: Most clinical situations: INR 2.0-3.0 Mechanical Prosthetic Valve: INR 2.5-3.5 Critical: INR >5.0 APTT - Normal Narrative: Therapeutic range for APTT's is 68 - 104 seconds CBC AND DIFFERENTIAL Narrative: The following orders were created for panel order CBC and Differential. Procedure Abnormality Status --------- ------ CBC Auto Differential[[id number]] Final result Please view results for these tests on the individual orders. PT/INR AND APTT Narrative: The following orders were created for panel order PT/INR and APTT. Procedure Abnormality Status --------- ------ PT/INR[[id number]] Normal Final result APTT[[id number]] Normal Final result Please view results for these tests on the individual orders. CBC BASIC METABOLIC PANEL CBC WITH AUTO DIFFERENTIAL CT Lumbar Spine Reconstructed Final Result 1. No evidence of acute traumatic abnormality in the chest, abdomen or pelvis. 2. Mild bibasilar atelectasis. 3. Thoracic degenerative disc disease and lumbar facet arthropathy without fracture or subluxation. [employer] Workstation ID: [id number] CT Thoracic Spine Reconstructed Final Result 1. No evidence of acute traumatic abnormality in the chest, abdomen or pelvis. 2. Mild bibasilar atelectasis. 3. Thoracic degenerative disc disease and lumbar facet arthropathy without fracture or subluxation. [employer] Workstation ID: [id number] CT Chest Abdomen Pelvis Without Contrast Final Result 1. No evidence of acute traumatic abnormality in the chest, abdomen or pelvis. 2. Mild bibasilar atelectasis. 3. Thoracic degenerative disc disease and lumbar facet arthropathy without fracture or subluxation. [employer] Workstation ID: [id number] MR Cervical Spine Without Contrast (Results Pending) CT Head Or Brain Without Contrast (Results Pending) ED Course / Medical Decision Making: I did personally review Hector's past medical history, surgical history, social history, as well as family history (when relevant). In this case, I also oversaw the his drug management by reviewing his medication list, allergy list, as well as the medications that I prescribed during the ED course and/or recommended as an out-patient (including possible OTC medications such as acetaminophen, NSAIDs , etc). His past medical problem list included: Active Ambulatory Problems Diagnosis Date Noted No Active Ambulatory Problems Resolved Ambulatory Problems Diagnosis Date Noted No Resolved Ambulatory Problems Past Medical History: Diagnosis Date Parkinson disease (HCC) ED MEDICATIONS GIVEN: Medications carbidopa-levodopa (SINEMET) 25-100 mg per tablet 1 tablet (1 tablet Oral Given 02/05/23 0131) sod phos di, mono-K phos mono (K-PHOS NEUTRAL) tablet 250 mg (has no administration in time range) sodium chloride (PF) (NS) flush 5 mL (has no administration in time range) And sodium chloride (PF) (NS) flush 5 mL (has no administration in time range) And sodium chloride 0.9% (NS) (has no administration in time range) famotidine (PEPCID) injection 20 mg (has no administration in time range) bacitracin zinc ointment (has no administration in time range) albuterol (PROVENTIL) 2.5 mg /3 mL (0.083 %) nebulizer solution 2.5 mg (has no administration in time range) ondansetron (ZOFRAN-ODT) disintegrating tablet 4 mg (has no administration in time range) Or ondansetron (ZOFRAN) injection 4 mg (has no administration in time range) acetaminophen (TYLENOL) tablet 650 mg (has no administration in time range) After reviewing the items above, I did look at previous medical documentation, such as recent hospitalizations, office visits, and/or recent consultations with PCP/specialist. SDOH: Another factor that I considered in Hector's care was his Social Determinants of Health (SDOH). During this ED encounter, he did NOT appear to have any significant issues identified. LAB TESTING: Ancillary lab testing: RADIOLOGY: I did consider radiological studies for Hector's care today: ED COURSE: Differential diagnosis includes concussion, subdural hematoma, facial bone fractures. Patient seen and evaluated by trauma here in the emergency department and will be admitted under their service pending further evaluation. 0300-after evaluation by trauma patient will be admitted to Dr. Yañez. . Clinical Impression: 1. Subdural hematoma (HCC) 2. 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 Pt fell earlier today after having a mechanical fall forward onto head and face. Pt has a subdural hematoma, multiple nasal fractures with +LOC. Pt has hx of parkinsons Bed: 20 Expected date: Expected time: Means of arrival: Comments: [facility] documented in this encounter [facility] 02-05-2023 Emergency department Note Updated emergency contacts via phone. [facility] 02-05-2023 Consult note Associated Order (s): IP CONSULT TO ENT This is SUE Holman dictating consultation note on patient Hector Castorena Date of 1955 Date of consultation 02/05/[address] 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 Stepping out of his truck he states that he thinks that he poked his foot on the pavement step up and fell forward. Patient presented to [place] emergency department as a trauma. During trauma evaluation patient was noted to have nasal bone fractures. ENT was consulted for evaluation. No Known Allergies Social History Substance and Sexual Activity Drug Use Never Social History Tobacco Use Smoking Status Never Smokeless Tobacco Never Social History Substance and Sexual Activity Alcohol Use Not Currently Past Medical History: Diagnosis Date Parkinson disease (HCC) Past Surgical History: Procedure Laterality Date DEEP BRAIN STIMULATOR PLACEMENT From [facility] HERNIA REPAIR History reviewed. No pertinent family history. Review of systems: 10 point review of systems was gone over with patient. Pertinent positives are as previously stated in history of present illness. Physical exam: Vitals: Vitals: 02/05/23 0415 02/05/23 0600 02/05/23 0630 02/05/23 0700 BP: (!) 154/105 (!) 146/95 (!) 151/96 Pulse: 90 85 85 81 Resp: (!) 20 (!) 20 17 18 Temp: SpO2: 96% 97% 96% 96% Ears: External ears well formed. External auditory canals are obstructed bilaterally with cerumen. Tympanic membranes cannot be visualized. Oral: Good mucous salivary flow from Stensen's Hood's ducts bilaterally. Poor dentition Neck: Patient is in a cervical collar trachea is midline. Nose: Nasal mucosa is pink and moist. Nasal septum is deviated sigmoid and shape. No evidence of septal hematoma at this time. Nasal dorsum has deflection to the patient's right. CT maxillofacial without contrast: I have independently reviewed the patient's imaging images and radiologist's interpretation as well as my personal interpretation of the afformentioned images and discussed the results with them. CT maxillofacial bones: There are bilateral nondisplaced nasal bone fractures with overlying soft tissue swelling and small amount of secretions or hemorrhage in the underlying nasal cavity. No other acute fracture or dislocation in the maxillofacial bones. Temporomandibular joints are intact. Scattered dental caries and periodontal disease/tooth infection. Age-indeterminate nasal septum fracture without evidence of septal hematoma. Assessment plan: Bilateral nondisplaced nasal bone fractures and age-indeterminatenasal septum fracture- no surgical intervention is required at this time. Recommend continuing patient on nasal saline sprays 2 sprays to each nostril 2-4 times daily patient is okay to follow-up with me as an outpatient 3 to 6 weeks after discharge. Sign off End dictation Dictated not read T [facility] 02-05-2023 Note Formatting of this n ote might be different from the original. ED Attestation: I have reviewed the Advanced Practice Provider's (LASHA's) documentation. In addition, I have personally introduced myself to the patient (face to face), and have taken his history and performed an examination. I agree with the physical findings, management, clinical impression and disposition. I did perform the substantive portion of this patient's encounter, including all aspects of the MDM. (Please note that portions of this note have been completed with a voice recognition software. Efforts were made to correct any errors, but occasionally words are mis-transcribed.) [facility] Work Phone: 02-05-2023 History and physical note [facility] SURGICAL HISTORY & PHYSICAL/CONSULTATION NOTE ======== Fall Assessment & Plan Mechanical fall from standing. Did not hit head, likely short period of loss of consciousness. No AC\AP meds. -Labs and UA pending. Traumatic subdural hematoma with loss of consciousness of 30 minutes or less (HCC) Assessment & Plan CT head with thin acute subdural hematoma along the right side of the falx, no mass effect or shift. No AC/AP meds, short LOC, GCS 15 Consult to neurosurgery -Every 2 hour neurochecks -We will repeat CT with any neurological changes Open fracture of nasal bone Assessment & Plan Bilateral nasal bone fractures with small superficial laceration -Consult ENT -no breathing difficulty Cervical strain Assessment & Plan Patient endorses cervical pain on palpation and endorses bilateral upper extremity paresthesias. CT cervical spine negative -Place patient in an Roland collar -MRI cervical ordered, patient does have brain stimulator from [facility] will need to verify MRI compatibility -Bedrest Spinal pain Assessment & Plan Thoracic and lumbar spinal pain to palpation and with range of motion CT thoracic and lumbar ordered -Bedrest and spinal precautions at this time Trauma: Admitted with these risk variables:None. Please see assessment and plan for further details. CHIEF COMPLAINT: Mechanical fall with spine pain and paresthesia. Notification Time: 2235 Arrival at Bedside: 0005 HISTORY OF PRESENT ILLNESS / INJURY (HPI): Mr. Castorena is a 67-year-old male with past medical history of Parkinson disease that has a deep brain stimulator that was placed at [facility] as well as hernia repair that presents to [facility] ED status post mechanical fall yesterday. CT head and face note subdural hematoma as well as bilateral nasal bone fractures, CT cervical was negative and patient was transferred to [place] for tertiary trauma exam. On arrival patient states fall was witnessed, he did have a short loss of consciousness, he denies any AC\AP meds. Patient's GCS was 15 on arrival, he does have baseline tremors from his Parkinson's that he states is worse at this time because he has not had his evening medications. Patient is fully dressed on arrival, clothing removed for full body assessment. On exam he notes worsening cervical spine pain with bilateral upper extremity paresthesias that are acute in nature. He endorses chronic thoracic and lumbar spine pain which he also states is worsened since his fall. He has no areas of deformities and no limits in range of motion throughout. Chest wall and pelvis are stable and abdomen is soft and nontender. Lower extremities without paresthesias. Will place cervical collar, obtain CT thoracic and lumbar and will complete chest abdomen pelvis for completion of exam. MRI is ordered but with brain stimulator will need to verify MRI compatibility. Labs have been ordered and nursing at bedside to place an IV. Consult to ENT and neurosurgery placed and will admit for close neurological exam. Discussed with Dr. Yañez. PAST MEDICAL HISTORY (PMH): Past Medical History: Diagnosis Date Parkinson disease (HCC) Past Surgical History: Procedure Laterality Date DEEP BRAIN STIMULATOR PLACEMENT From [facility] HERNIA REPAIR Social History Tobacco Use Smoking status: Never Smokeless tobacco: Never Substance Use Topics Alcohol use: Not Currently Drug use: Never History reviewed. No pertinent family history. MEDICATIONS: No current facility-administered medications on file prior to encounter. Current Outpatient Medications on File Prior to Encounter Medication Sig Dispense Refill carbidopa-levodopa (SINEMET) 25-100 mg per tablet Take 1 (one) tablet by mouth 5 (five) times a day . ALLERGIES: No Known Allergies REVIEW OF SYSTEMS: COVID19 Screen: Negative for fever, cough, SOB, exposure. Constitutional Symptoms: Negative for unexplained falls, weight loss Eyes: Negative for eye pain or vision changes Ears, Nose, Mouth, Throat: Negative for rhinorrhea,dysphagia, hoarseness. Acute nasal tenderness status post fall. Cardiovascular: Negative for chest pain, orthopnea, edema Respiratory: Negative for cough, shortness of breath Gastrointestinal: Negative for abdominal pain, nausea, vomiting, diarrhea. Chronic history of constipation. Genitourinary: Negative for dysuria, hematuria Musculoskeletal: Negative for pain, joint edema. Chronic back pain which is acutely worsened since fall. Skin/Breast: Negative for rash, itching, lesions Neurological: Negative for paresthesia, paralysis, loss of bowel or bladder control, loss of consciousness Psychiatric: Negative for depression, anxiety, or suicidal ideations Endocrine: Negative for heat/cold intolerance, polydipsia, polyphagia, polyuria Hematologic/Lymphatic: Negative for anticoagulant use, antiplatelet use, family hx of clotting or bleeding disorders Allergic/Immunologic: Allergies reviewed, no use of immunosuppressants or active chemotherapy Other than the above items, the remainder of a complete review of systems is otherwise negative. PHYSICAL EXAM: BP (!) 154/113 Pulse 88 Temp 98.7 F (37.1 C) Resp (!) 20 SpO2 97% There is no height or weight on file to calculate BMI. GENERAL: Appears age appropriate. No acute distress. NEUROLOGICAL: Alert and oriented X 3. Follows commands with extremities x4, equal strength. Pupils equal, round, reactive to light. EOMI. Bilateral upper extremity paresthesias that are acute since fall. GCS = 15 Head Eyes Ear Nose Throat: Head: Atraumatic, normocephalic. Eyes: Conjunctivae/sclerae/corneas clear. Ears: External ear normal. Hearing within normal limits for patient. No drainage. Nose: Edema to nasal bridge with superficial laceration, tenderness on palpation, no breathing difficulties. Throat: phonation normal Neck: Supple, trachea midline, cervical tenderness on palpation, step offs, bony crepitus. CARDIOVASCULAR: Regular rate and rhythm. No clicks, rubs, murmurs or gallops noted. No peripheral edema noted. 2+ pulses radial/DP/PT bilaterally. RESPIRATORY: Lungs, clear to auscultation bilaterally. No rhonchi, wheezes or crackles. Respiratory effort unlabored without use of accessory muscles. Room air ABDOMINAL: Rounded, soft, nontender, nondistended, normal bowel sounds. No guarding or peritoneal signs. Positive flatus last bowel movement this morning. GENITOURINARY: Normal genitalia for age without lesion or trauma. Rectal exam - defer MUSCULOSKELETAL: Extremities atraumatic without gross deformity x4. ROM appropriate for age. No clubbing, cyanosis or joint edema. SPINE: Thoracic and lumbar midline tenderness to palpation with no step-offs or deformities SKIN: Skin warm and dry. No rashes or lesions. IMAGING STUDIES: CT images and impressions reviewed from [facility]. LABORATORY STUDIES: No labs obtained at [facility]. Labs ordered and pending at this time. [facility] 02-05-2023 Evaluation + Plan note Associated Problem(s): Spinal pain Thoracic and lumbar spinal pain to palpation and with range of motion CT thoracic and lumbar negative -therapies [facility] 02-05-2023 History and physical note [facility] SURGICAL HISTORY & PHYSICAL/CONSULTATION NOTE ======== Fall Assessment & Plan Mechanical fall from standing. Did not hit head, likely short period of loss of consciousness. No AC\AP meds. -Labs and UA pending. Traumatic subdural hematoma with loss of consciousness of 30 minutes or less (HCC) Assessment & Plan CT head with thin acute subdural hematoma along the right side of the falx, no mass effect or shift. No AC/AP meds, short LOC, GCS 15 Consult to neurosurgery -Every 2 hour neurochecks -We will repeat CT with any neurological changes Open fracture of nasal bone Assessment & Plan Bilateral nasal bone fractures with small superficial laceration -Consult ENT -no breathing difficulty Cervical strain Assessment & Plan Patient endorses cervical pain on palpation and endorses bilateral upper extremity paresthesias. CT cervical spine negative -Place patient in an Roland collar -MRI cervical ordered, patient does have brain stimulator from [facility] will need to verify MRI compatibility -Bedrest Spinal pain Assessment & Plan Thoracic and lumbar spinal pain to palpation and with range of motion CT thoracic and lumbar ordered -Bedrest and spinal precautions at this time Trauma: Admitted with these risk variables:None. Please see assessment and plan for further details. CHIEF COMPLAINT: Mechanical fall with spine pain and paresthesia. Notification Time: 2235 Arrival at Bedside: 0005 HISTORY OF PRESENT ILLNESS / INJURY (HPI): Mr. Castorena is a 67-year-old male with past medical history of Parkinson disease that has a deep brain stimulator that was placed at [facility] as well as hernia repair that presents to [facility] ED status post mechanical fall yesterday. CT head and face note subdural hematoma as well as bilateral nasal bone fractures, CT cervical was negative and patient was transferred to [place] for tertiary trauma exam. On arrival patient states fall was witnessed, he did have a short loss of consciousness, he denies any AC\AP meds. Patient's GCS was 15 on arrival, he does have baseline tremors from his Parkinson's that he states is worse at this time because he has not had his evening medications. Patient is fully dressed on arrival, clothing removed for full body assessment. On exam he notes worsening cervical spine pain with bilateral upper extremity paresthesias that are acute in nature. He endorses chronic thoracic and lumbar spine pain which he also states is worsened since his fall. He has no areas of deformities and no limits in range of motion throughout. Chest wall and pelvis are stable and abdomen is soft and nontender. Lower extremities without paresthesias. Will place cervical collar, obtain CT thoracic and lumbar and will complete chest abdomen pelvis for completion of exam. MRI is ordered but with brain stimulator will need to verify MRI compatibility. Labs have been ordered and nursing at bedside to place an IV. Consult to ENT and neurosurgery placed and will admit for close neurological exam. Discussed with Dr. Yañez. PAST MEDICAL HISTORY (PMH): Past Medical History: Diagnosis Date Parkinson disease (HCC) Past Surgical History: Procedure Laterality Date DEEP BRAIN STIMULATOR PLACEMENT From [facility] HERNIA REPAIR Social History Tobacco Use Smoking status: Never Smokeless tobacco: Never Substance Use Topics Alcohol use: Not Currently Drug use: Never History reviewed. No pertinent family history. MEDICATIONS: No current facility-administered medications on file prior to encounter. Current Outpatient Medications on File Prior to Encounter Medication Sig Dispense Refill carbidopa-levodopa (SINEMET) 25-100 mg per tablet Take 1 (one) tablet by mouth 5 (five) times a day . ALLERGIES: No Known Allergies REVIEW OF SYSTEMS: COVID19 Screen: Negative for fever, cough, SOB, exposure. Constitutional Symptoms: Negative for unexplained falls, weight loss Eyes: Negative for eye pain or vision changes Ears, Nose, Mouth, Throat: Negative for rhinorrhea,dysphagia, hoarseness. Acute nasal tenderness status post fall. Cardiovascular: Negative for chest pain, orthopnea, edema Respiratory: Negative for cough, shortness of breath Gastrointestinal: Negative for abdominal pain, nausea, vomiting, diarrhea. Chronic history of constipation. Genitourinary: Negative for dysuria, hematuria Musculoskeletal: Negative for pain, joint edema. Chronic back pain which is acutely worsened since fall. Skin/Breast: Negative for rash, itching, lesions Neurological: Negative for paresthesia, paralysis, loss of bowel or bladder control, loss of consciousness Psychiatric: Negative for depression, anxiety, or suicidal ideations Endocrine: Negative for heat/cold intolerance, polydipsia, polyphagia, polyuria Hematologic/Lymphatic: Negative for anticoagulant use, antiplatelet use, family hx of clotting or bleeding disorders Allergic/Immunologic: Allergies reviewed, no use of immunosuppressants or active chemotherapy Other than the above items, the remainder of a complete review of systems is otherwise negative. PHYSICAL EXAM: BP (!) 154/113 Pulse 88 Temp 98.7 F (37.1 C) Resp (!) 20 SpO2 97% There is no height or weight on file to calculate BMI. GENERAL: Appears age appropriate. No acute distress. NEUROLOGICAL: Alert and oriented X 3. Follows commands with extremities x4, equal strength. Pupils equal, round, reactive to light. EOMI. Bilateral upper extremity paresthesias that are acute since fall. GCS = 15 Head Eyes Ear Nose Throat: Head: Atraumatic, normocephalic. Eyes: Conjunctivae/sclerae/corneas clear. Ears: External ear normal. Hearing within normal limits for patient. No drainage. Nose: Edema to nasal bridge with superficial laceration, tenderness on palpation, no breathing difficulties. Throat: phonation normal Neck: Supple, trachea midline, cervical tenderness on palpation, step offs, bony crepitus. CARDIOVASCULAR: Regular rate and rhythm. No clicks, rubs, murmurs or gallops noted. No peripheral edema noted. 2+ pulses radial/DP/PT bilaterally. RESPIRATORY: Lungs, clear to auscultation bilaterally. No rhonchi, wheezes or crackles. Respiratory effort unlabored without use of accessory muscles. Room air ABDOMINAL: Rounded, soft, nontender, nondistended, normal bowel sounds. No guarding or peritoneal signs. Positive flatus last bowel movement this morning. GENITOURINARY: Normal genitalia for age without lesion or trauma. Rectal exam - defer MUSCULOSKELETAL: Extremities atraumatic without gross deformity x4. ROM appropriate for age. No clubbing, cyanosis or joint edema. SPINE: Thoracic and lumbar midline tenderness to palpation with no step-offs or deformities SKIN: Skin warm and dry. No rashes or lesions. IMAGING STUDIES: CT images and impressions reviewed from [facility]. LABORATORY STUDIES: No labs obtained at [facility] [facility] Labs ordered and pending at this time. documented in this encounter [facility] 02-05-2023 Evaluation + Plan note Associated Problem(s): Traumatic subdural hematoma with loss of consciousness of 30 minutes or less (HCC) CT head with thin acute subdural hematoma along the right side of the falx, no mass effect or shift. No AC/AP meds, short LOC, GCS 15 Consult to neurosurgery -Every 2 hour neurochecks -We will repeat CT at 0600 [facility] 02-05-2023 Evaluation + Plan note Associated Problem(s): Open fracture of nasal bone Bilateral nasal bone fractures with small superficial laceration -Consult ENT -no breathing difficulty -wound care [facility] 02-05-2023 Evaluation + Plan note Associated Problem(s): Cervical strain Patient endorses cervical pain on palpation and endorses bilateral upper extremity paresthesias. CT cervical spine negative -Place patient in an Roland collar -MRI cervical ordered, patient does have brain stimulator from [facility] will need to verify MRI compatibility -Bedrest [facility] 02-05-2023 Evaluation + Plan note Associated Problem(s): Fall Mechanical fall from standing. Did not hit head, likely short period of loss of consciousness. No AC\AP meds. -u/a negative. [facility] 02-05-2023 Physician Emergency department Note [facility] LASHA NOTE: NAME: Hector Castorena CSN: [id number] 67 y.o. PCP: No, Physician History: Chief Complaint: No chief complaint on file. HPI: The history was obtained from the patient. Hector is a 67 y.o. male who presents with a chief complaint of No chief complaint on file.. Patient was seen at the [facility] emergency department after mechanical fall and was diagnosed with subdural hematoma and facial bone fractures. Patient transferred here for further evaluation by trauma. PMHx: Past Medical History: Diagnosis Date Parkinson disease (HCC) PMSx: Past Surgical History: Procedure Laterality Date DEEP BRAIN STIMULATOR PLACEMENT From [facility] HERNIA REPAIR FAM. Hx: History reviewed. No pertinent family history. SOC. Hx: Social History Socioeconomic History Marital status: Single Tobacco Use Smoking status: Never Smokeless tobacco: Never Substance and Sexual Activity Alcohol use: Not Currently Drug use: Never MEDs: Previous Medications Medication Sig carbidopa-levodopa (SINEMET) 25-100 mg per tablet Take 1 (one) tablet by mouth 5 (five) times a day . ALL: No Known Allergies ROS: Review of Systems Positives and pertinent negatives as per HPI. All other systems were reviewed and are negative. Physical Exam: Patient Vitals for the past 24 hrs: BP Temp Pulse Resp SpO2 02/05/23 0230 (!) 154/95 -- 83 (!) 21 96 % 02/05/23 0215 -- -- (!) 105 17 96 % 02/05/23 0200 125/87 -- 85 (!) 19 96 % 02/05/23 0130 -- -- 87 (!) 20 96 % 02/05/23 0126 -- -- 88 (!) 20 96 % 02/05/23 0115 -- -- 88 18 96 % 02/05/23 0100 -- -- 92 14 96 % 02/05/23 0045 -- -- 90 (!) 20 97 % 02/04/23 2339 (!) 154/113 98.7 F (37.1 C) 88 (!) 20 97 % Physical Exam Vitals and nursing note reviewed. Constitutional: General: He is not in acute distress. HENT: Mouth/Throat: Mouth: Mucous membranes are moist. Eyes: Conjunctiva/sclera: Conjunctivae normal. Cardiovascular: Rate and Rhythm: Normal rate and regular rhythm. Musculoskeletal: General: Normal range of motion. Pulmonary: Effort: Pulmonary effort is normal. Breath sounds: Normal breath sounds. Abdominal: Palpations: Abdomen is soft. Tenderness: There is no abdominal tenderness. There is no guarding. Skin: General: Skin is warm and dry. Comments: Facial abrasions Neurological: General: No focal deficit present. Mental Status: He is alert and oriented to person, place, and time. Psychiatric: Mood and Affect: Mood normal. Laboratory & Radiological Imaging (if done): Labs Reviewed COMPREHENSIVE METABOLIC PANEL - Abnormal; Notable for the following components: Result Value Chloride 112 (*) Anion Gap 8 (*) Glucose 114 (*) Calcium 8.2 (*) ALT 11 (*) All other components within normal limits Narrative: [facility] Services has implemented the eGFR calculation approach that does not have a coefficient for race that conforms to the NKF-ASN Task Force Recommendations. PHOSPHORUS - Abnormal; Notable for the following components: Phosphorus 2.0 (*) All other components within normal limits URINALYSIS - Abnormal; Notable for the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 onset.The pain is associated with no known injury. The pain is present in the lumbar spine. The quality of the pain is described as aching. The pain does not radiate. The pain is moderate. Pain (Shoulder Pain) Associated symptoms include neck pain. Review of Systems Musculoskeletal: Positive for back pain and neck pain. All other systems reviewed and are negative. Past Medical history: PAST MEDICAL HISTORY Diagnosis Date Anxiety 03/09/2018 HTN (hypertension), benign Other constipation 03/09/2018 PD (Parkinson's disease) ([facility]) 05/01/2011 Past Surgical History: PAST SURGICAL HISTORY Procedure Laterality Date LAPS RPR INCISIONAL HERNIA NCRC8/STRANGULATED 02/09/2010 [facility] PAST SURGICAL HISTORY OF right hand trauma--pins PAST SURGICAL HISTORY OF 2019 DBS REMV CATARACT EXTRACAP,INSERT LENS Right 11/30/2020 Family History: FAMILY HISTORY Problem Relation Age of Onset Hypertension Father Diabetes Mother Hypertension Mother Diabetes Sister Ischemic Heart Disease Sister Stroke Sister Anesthesia Problems No Family History Social History: Social History Tobacco Use Smoking status: Never Smokeless tobacco: Never Substance Use Topics Alcohol use: No Drug use: No Current Medications: polyethylene glycol 3350 (MIRALAX) 17 gram/dose powder, Take 17 g by mouth once daily., Disp: 1530 g, Rfl: 3 carbidopa-levodopa (SINEMET 25-100) 25-100 mg per tablet, Take 1 tablet by mouth five times daily., Disp: 450 tablet, Rfl: 3 acetaminophen (TYLENOL) 325 mg tablet, Take 2 tablets by mouth every 4 hours as needed., Disp: 60 tablet, Rfl: 0 No facility-administered encounter medications on file as of 07/30/2022. Allergies: ALLERGIES No Known Allergies Vitals: BP 136/75 Pulse 60 Wt 142 lb (64.4kg) SpO2 100% Objective BP 136/75 (BP Site: Right Arm, BP Position: Sitting, BP Cuff Size: Regular Adult) Pulse 60 Wt 64.4 kg (142 lb) SpO2 100% BMI 21.59 kg/m? Physical Exam Constitutional: General: He is not in acute distress. HENT: Head: Normocephalic and atraumatic. Eyes: Conjunctiva/sclera: Conjunctivae normal. Pupils: Pupils are equal, round, and reactive to light. Cardiovascular: Rate and Rhythm: Normal rate and regular rhythm. Heart sounds: Normal heart sounds. No murmur heard. No friction rub. No gallop. Pulmonary: Effort: Pulmonary effort is normal. No respiratory distress. Breath sounds: Normal breath sounds. No wheezing or rales. Chest: Chest wall: No tenderness. Abdominal: General: Bowel sounds are normal. There is no distension. Palpations: Abdomen is soft. There is no mass. Tenderness: There is no abdominal tenderness. There is no guarding or rebound. Musculoskeletal: Cervical back: Normal range of motion and neck supple. Neurological: General: No focal deficit present. Mental Status: He is alert and oriented to person, place, and time. Psychiatric: Mood and Affect: Mood normal. Behavior: Behavior normal. Assessment and Plan ASSESSMENT/PLAN: 1. Chronic bilateral low back pain without sciatica - ICD9: 724.2, 338.29, ICD10: M54.50, G89.29 (primary diagnosis) - XR LUMBAR GENERAL 3V AP/LAT/L5-S1 2. Neck pain - ICD9: 723.1, ICD10: M54.2 - CONSULT TO PHYSICAL THERAPY - XR CERV OTHER 4V AP/LAT/OBL 3. Mixed hyperlipidemia - ICD9: 272.2, ICD10: E78.2 Feroz Bowie MD [facility] 07-30-2022 History of Present illness Narrative Radiology Service Progress Note PATIENT NAME: Hector Castorena DATE OF SERVICE: July 30, 2022 TIME: 2:40 PM PATIENT IDENTITY VERIFICATION COMPLETED USING TWO (2) IDENTIFIERS: Name and Date of confirmed by patient verbally. FALL SCREENING: Has the patient had 2 falls in the last year or 1 fall with injury or currently using an Ambulatory Assistive Device (Walker, Cane, Wheelchair, Crutches, etc.)? Yes, Patient High Risk for Falls What interventions were put in place to prevent falls during this visit? Instructed Patient to Remain Seated (Not on Exam Table) Until Exam and Increased Observations by Caregivers PATIENT GENDER DATA: Male PATIENT RELEVANT IMPLANT DATA REVIEWED: Not Applicable RADIOLOGY DEPARTMENT: General X-ray: Exam(s) Completed: Spine X-Ray(s): Cervical AP / LAT / OBL and Lumbar AP / LAT / L5-S1 PERIPHERAL IV DATA: Not applicable SIGNED BY: RT Julian(R) July 30, 2022 2:40 PM documented in this encounter [facility] 07-30-2022 History of Present illness Narrative This note was created using Kaldoorar[employer]. Subjective Hector Castorena is a 67 year old male. The history is provided by the patient. Back Pain This is a recurrent problem. The current episode started more than 1 week ago. The problem has not changed since onset.The pain is associated with no known injury. The pain is present in the lumbar spine. The quality of the pain is described as aching. The pain does not radiate. The pain is moderate. Pain (Shoulder Pain) Associated symptoms include neck pain. Review of Systems Musculoskeletal: Positive for back pain and neck pain. All other systems reviewed and are negative. Past Medical history: PAST MEDICAL HISTORY Diagnosis Date Anxiety 03/09/2018 HTN (hypertension), benign Other constipation 03/09/2018 PD (Parkinson's disease) ([facility]) 05/01/2011 Past Surgical History: PAST SURGICAL HISTORY Procedure Laterality Date LAPS RPR INCISIONAL HERNIA NCRC8/STRANGULATED 02/09/2010 [facility] PAST SURGICAL HISTORY OF right hand trauma--pins PAST SURGICAL HISTORY OF 2019 DBS REMV CATARACT EXTRACAP,INSERT LENS Right 11/30/2020 Family History: FAMILY HISTORY Problem Relation Age of Onset Hypertension Father Diabetes Mother Hypertension Mother Diabetes Sister Ischemic Heart Disease Sister Stroke Sister Anesthesia Problems No Family History Social History: Social History Tobacco Use Smoking status: Never Smokeless tobacco: Never Substance Use Topics Alcohol use: No Drug use: No Current Medications: polyethylene glycol 3350 (MIRALAX) 17 gram/dose powder, Take 17 g by mouth once daily., Disp: 1530 g, Rfl: 3 carbidopa-levodopa (SINEMET 25-100) 25-100 mg per tablet, Take 1 tablet by mouth five times daily., Disp: 450 tablet, Rfl: 3 acetaminophen (TYLENOL) 325 mg tablet, Take 2 tablets by mouth every 4 hours as needed., Disp: 60 tablet, Rfl: 0 No facility-administered encounter medications on file as of 07/30/2022. Allergies: ALLERGIES No Known Allergies Vitals: BP 136/75 Pulse 60 Wt 142 lb (64.4kg) SpO2 100% Objective BP 136/75 (BP Site: Right Arm, BP Position: Sitting, BP Cuff Size: Regular Adult) Pulse 60 Wt 64.4 kg (142 lb) SpO2 100% BMI 21.59 kg/m Physical Exam Constitutional: General: He is not in acute distress. HENT: Head: Normocephalic and atraumatic. Eyes: Conjunctiva/sclera: Conjunctivae normal. Pupils: Pupils are equal, round, and reactive to light. Cardiovascular: Rate and Rhythm: Normal rate and regular rhythm. Heart sounds: Normal heart sounds. No murmur heard. No friction rub. No gallop. Pulmonary: Effort: Pulmonary effort is normal. No respiratory distress. Breath sounds: Normal breath sounds. No wheezing or rales. Chest: Chest wall: No tenderness. Abdominal: General: Bowel sounds are normal. There is no distension. Palpations: Abdomen is soft. There is no mass. Tenderness: There is no abdominal tenderness. There is no guarding or rebound. Musculoskeletal: Cervical back: Normal range of motion and neck supple. Neurological: General: No focal deficit present. Mental Status: He is alert and oriented to person, place, and time. Psychiatric: Mood and Affect: Mood normal. Behavior: Behavior normal. Assessment and Plan ASSESSMENT/PLAN: 1. Chronic bilateral low back pain without sciatica - ICD9: 724.2, 338.29, ICD10: M54.50, G89.29 (primary diagnosis) - XR LUMBAR GENERAL 3V AP/LAT/L5-S1 2. Neck pain - ICD9: 723.1, ICD10: M54.2 - CONSULT TO PHYSICAL THERAPY - XR CERV OTHER 4V AP/LAT/OBL 3. Mixed hyperlipidemia - ICD9: 272.2, ICD10: E78.2 Feroz Bowie MD documented in this encounter [facility] 07-30-2022 Instructions Deja Jones MA - 07/30/2022 1:30 PM EDT [facility] LAB FACTS Please visit our lab at least 3-5 days before your scheduled appointment to have your lab work drawn, if lab work is ordered. This will allow us the ability to review your lab work results with you during your scheduled visit. [facility] HOURS: Lab is open Friday - Friday from 6:30am to 5pm and open 8am -12pm on Saturdays. [facility]: Friday- 7:30am to 5:30pm. Fridays 7:30-5:00pm and Friday 8:00am to 12:00 pm. Routine Lab Orders 60 days after they are entered. If your lab orders , you may be required to wait in the lab while they are reinstated FUTURE ORDERS are lab tests to be completed on the EXPECTED date. These orders 60 days after the expected date. STANDING ORDERS are recurring orders with an expiration date. The interval will indicate how often the test should be completed. FASTING LAB means nothing to eat or drink (except water) 10-12 hours before your blood is drawn. CT/MRI/IVP If you have one of these radiology exams ordered along with blood work, please complete the blood work at least one day prior to the scheduled exam. My Chart Schedule My Appointment enables you to view your established primary care provider's open schedule and book an appointment online in real-time. This feature is available in internal medicine, family medicine, or pediatrics at any of our [facility] locations and main campus. documented in this encounter [facility] 06-12-2022 Note HNO ID: [id number] Author: Benita Law PA-C Service: ? Author Type: Physician [employer] Type: Progress Notes Filed: 06/12/2022 11:30 AM Note Text: CC: pt here for DBS check HPI: Hector is 67 years old with Parkinson's disease treated with medications and bilateral STN DBS with the [place] system. He is here today with concerns over his system as he fell yesterday landing on his chest with his fist near the IPG. The fall was not related to his Parkinson's disease he lost his footing in some mild getting out of the car. He did have a small amount of pain at the time of the fall as his fist jammed into his IPG. He has not noticed that there has been any change in his symptom control. He did have a warning show up on his hand controller but said he did not have Internet connection and he was concerned. PE Alert and oriented x3 Mild dysarthria, not new No observed bradykinesia No observed dyskinesia No observed tremors Gait normal No swelling or erythema at the IPG site The IPG was interrogated, impedances normal. IMP: Hector is 67 with Parkinson's disease treated with medications and bilateral STN DBS with the [place] system. His recent fall did not affect his IPG, or the wires. His impedances were normal, he continues to have excellent symptom control. We discussed that he does not need any Internet connection to connect with the IPG if he wants to make changes in the DBS settings. He only needs Internet connections if he uses the controller for other purposes or tries to set up a remote programming appointment. No DBS programming done today less than 15 minutes spent with patient Benita Law PA-C [facility] 06-12-2022 History of Present illness Narrative CC: pt here for DBS check HPI: Hector is 67 years old with Parkinson's disease treated with medications and bilateral STN DBS with the [place] system. He is here today with concerns over his system as he fell yesterday landing on his chest with his fist near the IPG. The fall was not related to his Parkinson's disease he lost his footing in some mild getting out of the car. He did have a small amount of pain at the time of the fall as his fist jammed into his IPG. He has not noticed that there has been any change in his symptom control. He did have a warning show up on his hand controller but said he did not have Internet connection and he was concerned. PE Alert and oriented x3 Mild dysarthria, not new No observed bradykinesia No observed dyskinesia No observed tremors Gait normal No swelling or erythema at the IPG site The IPG was interrogated, impedances normal. IMP: Hector is 67 with Parkinson's disease treated with medications and bilateral STN DBS with the [place] system. His recent fall did not affect his IPG, or the wires. His impedances were normal, he continues to have excellent symptom control. We discussed that he does not need any Internet connection to connect with the IPG if he wants to make changes in the DBS settings. He only needs Internet connections if he uses the controller for other purposes or tries to set up a remote programming appointment. No DBS programming done today less than 15 minutes spent with patient Benita Law PA-C documented in this encounter [facility] 05-10-2022 Note HNO ID: [id number] Author: Dee Arrieta MD Service: ? Author Type: Physician Type: Progress Notes Filed: 05/10/2022 11:19 AM Note Text: [facility] - FOLLOW UP EVALUATION I had the pleasure of seeing Mr. Castorena for follow up today. He is a 67 year old right-handed male with a history of IPD since 2007. s/p bilateral STN DBS in 2019 He is seen with his family. Subjective Previous Plan-08/06/2021 Visit: continue Sinemet 25/100 1 tablet 5 times a day q 3 hours LSVT BIG PT in the community follow-up in six months Interested in clinical research? Not currently Interval History: He did better after recent battery replacement. He denied memory decline, visual hallucinations, depression. he has not had PT or ST for more than one year. His primary complaint is gait festination. Parkinson's Medication Schedule - as of the start of the visit: Medications Questionnaires ALLERGIES No Known Allergies Current Outpatient Medications Medication Sig acetaminophen (TYLENOL) 325 mg tablet Take 2 tablets by mouth every 4 hours as needed. polyethylene glycol 3350 (MIRALAX) 17 gram/dose powder Take 17 g by mouth once daily. carbidopa-levodopa (SINEMET 25-100) 25-100 mg per tablet Take 1 tablet by mouth five times daily. No current facility-administered medications for this visit. Objective Vital Signs: BP 123/75 (BP Site: Left Arm, BP Position: Sitting, BP Cuff Size: Regular Adult) Pulse 85 SpO2 100% Orthostatic Vitals: None for this encounter No LMP for male patient. There is no height or weight on file to calculate BMI. General Physical Examination: General Exam General Neurological Examination: Neurological Exam Movement Disorders Scales Performed: Assessment and Plan: Assessment Mr. Castorena is a right-handed 67 year old year old male with IPD since 2008; S/p bilateral STN DBS in 2019. We agreed to carry on current regimen without change. We agreed to proceed with PSVT BIG and LOUD therapies in the community. I provided the patient and his brother with scripts/addresses in the community where they can schedule these services. Follow-up in 6 months. The following are the current problems noted and addressed during this visit: Parkinson's disease (hcc) (primary encounter diagnosis) Pd (parkinson's disease) (formerly [facility]) S/p deep brain stimulator placement Abnormality of gait Primary parkinsonism (formerly [facility]) Plan 05/10/2022 Visit: continue same medications LSVT BIG and LOUD follow-up in 6 months Interested in clinical research? Not currently Updated Parkinson's Medication Schedule: Medications Return at or around: 11/08/22 Level of service : 60899 (40-54 min). Time spent 45 min on the day of service, which included preparing to see the patient, [id number] patient care, completing clinical documentation, obtaining and/or reviewing separately obtained history, counseling and educating the patient/family/caregiver, ordering medications, tests, or procedures, and care coordination (not separately reported). Thank you for allowing me to be part of the clinical care of this patient! I look forward to continued participation in the patient?s care with you. Please do not hesitate to call with any questions. Sincerely, Dee Arrieta MD [facility] 05-10-2022 Instructions Dee Arrieta MD - 05/10/2022 11:01 AM EST Please, speech and physical therapy (LSVT BIG and LOUD) Please, continue carbidopa/levodopa 25/100 1 tablet 5 times a day every 4 hours Please, continue daily Miralax for constipation Please, follow-up in 6 months documented in this encounter [facility] 05-10-2022 History of Present illness Narrative [facility] - FOLLOW UP EVALUATION I had the pleasure of seeing Mr. Castorena for follow up today. He is a 67 year old right-handed male with a history of IPD since 2007. s/p bilateral STN DBS in 2019 He is seen with his family. Subjective Previous Plan-08/06/2021 Visit: continue Sinemet 25/100 1 tablet 5 times a day q 3 hours LSVT BIG PT in the community follow-up in six months Interested in clinical research? Not currently Interval History: He did better after recent battery replacement. He denied memory decline, visual hallucinations, depression. he has not had PT or ST for more than one year. His primary complaint is gait festination. Parkinson's Medication Schedule - as of the start of the visit: Medications Questionnaires ALLERGIES No Known Allergies Current Outpatient Medications Medication Sig acetaminophen (TYLENOL) 325 mg tablet Take 2 tablets by mouth every 4 hours as needed. polyethylene glycol 3350 (MIRALAX) 17 gram/dose powder Take 17 g by mouth once daily. carbidopa-levodopa (SINEMET 25-100) 25-100 mg per tablet Take 1 tablet by mouth five times daily. No current facility-administered medications for this visit. Objective Vital Signs: BP 123/75 (BP Site: Left Arm, BP Position: Sitting, BP Cuff Size: Regular Adult) Pulse 85 SpO2 100% Orthostatic Vitals: None for this encounter No LMP for male patient. There is no height or weight on file to calculate BMI. General Physical Examination: General Exam General Neurological Examination: Neurological Exam Movement Disorders Scales Performed: Assessment and Plan: Assessment Mr. Castorena is a right-handed 67 year old year old male with IPD since 2008; S/p bilateral STN DBS in 2019. We agreed to carry on current regimen without change. We agreed to proceed with PSVT BIG and LOUD therapies in the community. I provided the patient and his brother with scripts/addresses in the community where they can schedule these services. Follow-up in 6 months. The following are the current problems noted and addressed during this visit: Parkinson's disease (hcc) (primary encounter diagnosis) Pd (parkinson's disease) (formerly [facility]) S/p deep brain stimulator placement Abnormality of gait Primary parkinsonism (formerly [facility]) Plan 05/10/2022 Visit: continue same medications LSVT BIG and LOUD follow-up in 6 months Interested in clinical research? Not currently Updated Parkinson's Medication Schedule: Medications Return at or around: 11/08/22 Level of service : 10081 (40-54 min). Time spent 45 min on the day of service, which included preparing to see the patient, [id number] patient care, completing clinical documentation, obtaining and/or reviewing separately obtained history, counseling and educating the patient/family/caregiver, ordering medications, tests, or procedures, and care coordination (not separately reported). Thank you for allowing me to be part of the clinical care of this patient! I look forward to continued participation in the patient s care with you. Please do not hesitate to call with any questions. Sincerely, Dee Arrieta MD documented in this encounter [facility] 05-07-2022 Miscellaneous Notes Reason for call: Patient calling with extensive shakes/tremors. States that he feels his neurostimulator monitor is not working. Outcome: Conferenced to [facility] [place] [place] for calibration technician neurosurgeon for Dr. Mckoy. GO TO THE EMERGENCY ROOM OR CALL 911 IF: * You develop any new symptoms * Your condition worsens * You are concerned or anxious about your condition for any other reason. If you have any questions, you can call Nurse donor services manager back. documented in this encounter [facility] 01-07-2022 Miscellaneous Notes Request from patient requesting refill. Please E-Scribe to [employer]. Last OV: 12/07/21 with Hector Carpenter Future OV: 01/30/22 with II Requested Prescriptions Pending Prescriptions Disp Refills carbidopa-levodopa (SINEMET 25-100) 25-100 mg per tablet 450 tablet 3 Sig: Take 1 tablet by mouth five times daily. Luz Maria Mendiola documented in this encounter [facility] 01-03-2022 Miscellaneous Notes attempted to call. no option ofr voice mail message. will forward initial message to local [place] specialist. Benita Law PA-C Pt's brother Scott phoned stating that his DBS monitor is not connecting with the battery. Requesting to speak with someone [facility]. Scott [phone] documented in this encounter [facility] 12-07-2021 History of Present illness Narrative CC: Surgical f/u HPI: Hector Castorena comes to clinic today accompanied by his brother for surgical f/u. He is s/p IPG replacement on 11/19/21. He reports no wound issues. Focused Exam: Sutures removed, tolerated well. No erythema, edema, warmth, or drainage noted. Incision well approximated without evidence of wound dehiscence. Impression: Hector Castorena is a 66 year old male with a history of Parkinson's. He had replacement of his right chest IPG for DBS on 11/19/[address] Mckoy. The wound is healing well thus far. He will RTC prn. Plan: 1. F/u with neurology 2. RTC prn for wound/hardware problems Wound care and symptoms of infection reinforced. Hector Carpenter PA-C documented in this encounter [facility] 11-14-2021 History of Present illness Narrative CC: IPG near depletion HPI: Hector Castorena returns to clinic to discuss replacement of his IPG for DBS. He reports improvement in Parkinson's symptoms with DBS. Focused Exam: Infraclavicular region examined, no erythema, edema, warmth, or drainage noted. Incision well-healed without evidence of dehiscence I obtained the history and performed the physical exam. I have reviewed the information dictated by SIRI Rothman for accuracy. I have edited the note and agree with the final text. Impression: Hector Castorena is a 66 yr old male patient with a history of Parkinson's disease. He has bilateral GPi deep brain stimulation for management of motor symptoms in 2019. He reports good improvements in symptoms with DBS and is interested in continuing with this therapy. The surgical procedure to replace the IPG was explained to the patient in detail, including the r/b/a/p. Plan: Right chest replacement of pulse generator for deep brain stimulation We reviewed the informed consent form with the patient and his brother today and we signed it together. Vaibhav Mckoy MD documented in this encounter [facility] 11-14-2021 History of Present illness Narrative Patient here for pre-op routing for IPG replacement surgery. Reviewed patient's pre-op testing schedule and day of surgery schedule. Nasal swab obtained for staph aureus. Patient states understanding regarding all information reviewed and questions answered. Surgical guide and pre-op checklist reviewed. All questions answered. AMBULATORY PATIENT EDUCATION NOTE READINESS TO LEARN COGNITIVE ABILITY: Alert and oriented MOTIVATION TO LEARN: Interested FAMILY SUPPORT: High - Very involved in pt care INSTRUCTION PROVIDED TO: Patient and brother PATIENT LEARNS BEST BY: Individual, verbal and written instruction FACTORS AFFECTING LEARNING: None PHYSICAL LIMITATIONS AFFECTING LEARNING: None LEARNING RESPONSE DIAGNOSIS: Parkinson's METHOD OF INSTRUCTION: Individual, verbal and written instruction PATIENT / FAMILY RESPONSE: Verbalizes understanding of upcoming procedure FOLLOW-UP PLAN: Complete - No need for follow-up SUPPLEMENTAL MATERIAL: Surgical booklet, discharge instructions, skin prep and instructions The IPG is depleted and cannot be activated. Hector Carpenter PA-C documented in this encounter [facility] 11-14-2021 Nurse Note [facility] documented in this encounter [facility] 11-14-2021 History of Present illness Narrative Radiology Service Progress Note PATIENT NAME: Hector Castorena DATE OF SERVICE: November 14, 2021 TIME: 10:34 AM PATIENT IDENTITY VERIFICATION COMPLETED USING TWO (2) IDENTIFIERS: Name and Date of confirmed by patient verbally. FALL SCREENING: Has the patient had 2 falls in the last year or 1 fall with injury or currently using an Ambulatory Assistive Device (Walker, Cane,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 1 spray 1 spray, Each Nare, As needed, irritation, Starting on Leti 02/06/23 at 1045, Upright delivers a spray; Horizontally a stream; Upside down a drop. Linked Groups Order Group 1: ondansetron (ZOFRAN-ODT) disintegrating tablet 4 mgJump to med 4 mg, Oral, Every 6 hours PRN, nausea, vomiting, Starting on 02/05/23 at 0257
[] Oral or IV - use oral route if tolerated. Formulation requires tablet remain in sealed package until immediately prior to dose being administered.
Or ondansetron (ZOFRAN) injection 4 mgJump to med 4 mg, Intravenous, Every 6 hours PRN, nausea, vomiting, Starting on 02/05/23 at 0257
[] Oral or IV - use oral route if tolerated.
(unrecognized sect ion and content) No Status Records FoundNo Status Records FoundNo Status Records FoundNo Status Records Found INFORMATION SOURCE (unrecogn ized section and content) DATE CREATED AUTHOR AUTHOR'S ORGANIZ ATION 02/18/2023 [facility] DATE CREATED AUTHOR AUTHOR'S ORGANIZ ATION 04/16/2023 [facility] DATE CREATED AUTHOR AUTHOR'S ORGANIZ ATION 06/05/2023 [facility] FOR RECORDS PERTAINING TO PATIENTS WHO ARE OR HAVE BEEN ENROLLED IN A CHEMICAL DEPENDENCY/SUBSTANCEABUSE PROGRAM, SOME INFORMATION MAY BE OMITTED. This clinical summary was aggregated from multiple sources. Caution should be exercised in using it in the provision of clinical care. This summary normalizes information from multiple sources, and as a consequence, information in this document may materially change the coding, format and clinical context of patient data. In addition, data may be omitted in some cases. CLINICAL DECISIONS SHOULD BE BASED ON THE PRIMARY CLINICAL RECORDS. [facility]. provides no warranty or guarantee of the accuracy or completeness of information in this document.
--- NOTE | 2023-06-10 23:23 | RAD_ITS ---
EXAM: XR LUMBOSACRAL SPINE, 2 OR 3 VIEWS CLINICAL INDICATION: Injury/Pain TECHNIQUE: AP, lateral and lateral focused view centered at the lumbosacral junction. COMPARISON: No relevant prior studies available. FINDINGS: VERTEBRAE: Mild straightening of the usual lordotic curvature on the lateral view. Well-maintained disc spaces and the lumbar spine. Minimal endplate sclerosis and minimal spondylosis. Preserved vertebral body height. No fracture. No significant facet arthropathy. DISC SPACES: No acute findings. Disc spaces are maintained. GASTROINTESTINAL TRACT: Unremarkable as visualized. Included bowel gas pattern is non-obstructive. RAD/Lumbar Spine 2 or 3 Views IMPRESSION: Minimal degenerative changes. No acute posttraumatic abnormality. Electronically Signed: Alyssa Curry MD at 0:19 EST ,
--- NOTE | 2023-06-10 23:23 | CT_ITS ---
EXAM: CT HEAD WITHOUT INTRAVENOUS CONTRAST CLINICAL INDICATION: Injury/Pain TECHNIQUE: Multiple axial images were obtained of the head without intravenous contrast. This CT exam was performed using one or more of the following dose reduction techniques: automated exposure control, adjustment of the mA and/or kV according to patient size, and/or use of iterative reconstruction technique. RADIATION DOSE: CTDIvol = 44.99 mGy, DLP = 812.98 mGy-cm COMPARISON: No relevant prior studies available. FINDINGS: LIMITATIONS: Artifacts and asymmetric patient positioning. BRAIN AND EXTRA-AXIAL SPACES: There are narrowed basilar cisterns and mild ventriculomegaly, but the temporal horns are only about 4 mm and third ventricle only 7 mm transverse, with mild disproportionate dilatation of the bodies of the lateral ventricles, likely due to hydrocephalus ex vacuo. Cannot exclude some component of normal pressure hydrocephalus but there are visible patent sulci over the convexities and the sylvian fissures are normal in size. No intra- or extra-axial hemorrhage. No evidence of acute infarct. No intracranial mass or mass effect. There is preservation of the okeefe/white matter interface. Posterior fossa structures are unremarkable. BONES/JOINTS: There are small anterior-superior prashanth holes with percutaneous electrodes extending to the cerebral peduncles in the expected location of substantia nigra, typical for treatment for Parkinson''s or other movement disorders. No discrete lytic or blastic abnormalities. SINUSES: Unremarkable as visualized. Clear. MASTOID AIR CELLS: Unremarkable. Clear. ORBITS: Visualized globes, extraocular muscles, optic nerves and retrobulbar fat appear unremarkable. TUBES, LINES AND DEVICES: Artifacts from the electrodes but exam appears adequate to exclude intracranial hemorrhage or edema. CT/Brain/Head without Contrast IMPRESSION: No acute intracranial abnormality. Neurostimulator leads, artifacts, and mild hydrocephalus ex vacuo. Electronically Signed: Alyssa Curry MD at 0:32 EST ,
--- NOTE | 2023-06-10 23:23 | RAD_ITS ---
EXAM: XR THORACIC SPINE, 3 VIEWS CLINICAL INDICATION: Injury/Pain TECHNIQUE: 4 views. COMPARISON: No relevant prior studies available. FINDINGS: VERTEBRAE: See below. DISC SPACES: At least mild disc space narrowing and anterior spondylosis at multiple mid thoracic levels. Flowing anterior ligamentous ossification at multiple levels. Minimal decreased height at multiple levels without visible fracture line or vertebral body buckling spondylolisthesis. LUNGS AND PLEURAL SPACES: Unremarkable medial lungs. Minimal atelectasis in the lung bases. Intact medial-posterior ribs. TUBES, LINES AND DEVICES: Battery type device projecting over the right axilla and leads extending superiorly into the right neck. OTHER FINDINGS: Moderate stool in the hepatic and splenic flexures. RAD/Thoracic Spine 3 Views IMPRESSION: Multilevel degenerative thoracic spine changes and ligamentous ossifications. No convincing fracture or subluxation. Electronically Signed: Alyssa Curry MD at 0:23 EST ,
--- NOTE | 2023-06-10 23:23 | RAD_ITS ---
EXAM: XR PELVIS, 1 OR 2 VIEWS CLINICAL INDICATION: Injury/Pain TECHNIQUE: Single frontal view of the pelvis. COMPARISON: No relevant prior studies available. FINDINGS: BONES/JOINTS: Postoperative changes projecting over the central and right pelvis, presumed hernia repair. Mild hypertrophic changes at the right anterior-inferior iliac spine region. Minimal hypertrophic changes of the superolateral acetabular margins. Mild degenerative changes at the inferior-medial hip joint margins. No acute posttraumatic abnormality. No destructive or sclerotic lesions. Note that overlapping bowel shadows may however obscure fine detail. Sacroiliac joints are unremarkable. No widening of the pubic symphysis. SOFT TISSUES: See above. RAD/Pelvis 1 or 2 Views IMPRESSION: No acute posttraumatic abnormality. Electronically Signed: Alyssa Curry MD at 0:21 EST ,
--- NOTE | 2023-06-10 23:33 | EX.ED.GENINJ ---
HPI History of Present Illness Chief Complaint: Fall Informant: patient Narrative Narrative: Patient is a 68-year-old male with history of Parkinson's disease presenting after mechanical fall. Patient dates he was stepping back and that there is more room that he had. The leg of the chair broke and this caused him to fall to the ground. He landed on his buttocks and then fell towards his back. He is not sure if he hit his head or if his hand hit his head. He is now complaining mostly of thoracic and lumbar back pain. Did not take any for pain prior to arrival. Is not on any blood thinners. Has no other complaints and states he was in his normal state of health prior to this fall. States he went to make sure he did not have any major injuries. No other complaints or concerns at this time. Denies any associated numbness or tingling. [facility] Medical History Parkinson disease Presence of neurostimulator Home Medications carbidopa 25 mg-levodopa 100 mg tablet 1 tab PO Q4H PRN PRN Spasms 03/06/14 [History Last Taken 06/22/16 19:00] ibuprofen 600 mg tablet 600 mg PO Q6H PRN PRN Pain #30 tabs 10/13/18 [Rx Last Taken Unknown] cyclobenzaprine 10 mg tablet 10 mg PO TID PRN Muscle Spasm #20 tabs 12/16/18 [Rx Last Taken Unknown] naproxen 500 mg tablet 500 mg PO BID PRN #20 tabs 12/16/18 [Rx Last Taken Unknown] cyclobenzaprine 10 mg tablet 10 mg PO QHS PRN PRN Muscle Spasm #10 tabs 12/25/18 [Rx Last Taken Unknown] Allergy/AdvReac Type Severity Reaction Status Date / Time No Known Allergies Allergy Verified 12/25/18 19:48 Social History Smoking Status: Never smoker ROS ROS ED Constitutional Constitutional ED: Denies chills or fever(s) Eyes Eyes: Denies change in vision Cardiovascular Cardiovascular: Denies chest pain Respiratory/Chest Respiratory/Chest: Denies cough Gastrointestinal Gastrointestinal: Denies nausea or vomiting Musculoskeletal Musculoskeletal: Reports back pain; Denies arthralgias or neck pain Integumentary Denies rash Neurologic Neurologic: Denies headache(s) Hematologic/Lymphatic Hematologic/Lymphatic: Denies easy bleeding or easy bruising EXAM Physical Exam Const Vital Signs: 06/10/23 18:12 06/10/23 22:13 06/10/23 22:29 Temperature 97.6 F L Temperature Source Temporal Pulse Rate 104 H Respiratory Rate 18 Respiratory Effort Normal Blood Pressure 146/101 H 161/98 H Blood Pressure Mean 116 119 Pulse Ox 100 Oxygen Delivery Method Room Air 06/11/23 01:53 Temperature Temperature Source Pulse Rate 87 Respiratory Rate 19 H Respiratory Effort Blood Pressure 152/87 H Blood Pressure Mean 108 Pulse Ox 99 Oxygen Delivery Method Positive well nourished and well developed General Appearance ED: well developed and NAD HEENT Reports TM's clear atraumatic Nose: Negative for septum abnormal Tympanic Membrane ED: Yes TM's clear Eyes PERRL and EOMs intact bilaterally Chest Wall inspection of chest normal and palpation of chest normal Chest Narrative: Neurostimulator battery pack in the right anterior chest wall Resp normal respiratory effort and clear to auscultation bilaterally Cardio regular rhythm Rate: regular rate GI normal to inspection, nondistended, normoactive bowel sounds and non-tender Back/Spine Back/Spine Narrative: No midline spinal tenderness. No pain with range of motion of the neck. Mild midline thoracic tenderness at approximately T5-7. No significant pinpoint tenderness to palpation. No tenderness over the scapula. Patient also has mild lower lumbar tenderness palpation that does cross midline. Again no pinpoint area of tenderness. Extremity normal to inspection and full ROM Extremity Narrative: Pelvis is stable. No pain with range of motion of the hips. No obvious deformity of the extremities. Neuro oriented x3, moves all extremities and no focal motor deficits Neuro Narrative: Tremor present consistent with patient's known history of Parkinson's disease Sensorium / Orientation: alert Psych mental status grossly normal and thought process normal Skin no rashes or lesions noted and no wounds Skin Narrative: Superficial 1 cm linear abrasion to the left cheek, no active bleeding MDM MDM MDM Narrative Medical decision making narrative: Patient evaluated for injuries after mechanical fall. CT of the brain, x-ray of the lumbar spine, pelvis and thoracic spine is obtained use of tenderness. Plain films reviewed by myself did not show any acute fracture. Radiology is in agreement. There are degenerative changes. CT of the brain does not show any acute process. Patient is given Tylenol. Nurse tell me that he is able to ambulate easily and in the emergency room. Will be discharged home. Counseled on fall precautions and return precautions. Patient agreeable with plan of care. Differential diagnosis?pelvic fracture, intracranial hemorrhage, spinal fracture Radiography Diagnostic Testing: Clinical Impression(s) from Imaging Studies Brain CT 06/10/23 23:23 IMPRESSION: No acute intracranial abnormality. Neurostimulator leads, artifacts, and mild hydrocephalus ex vacuo. Electronically Signed: Alyssa Curry MD at 0:32 EST , Lumbar Spine X-Ray 06/10/23 23:23 IMPRESSION: Minimal degenerative changes. No acute posttraumatic abnormality. Electronically Signed: Alyssa Curry MD at 0:19 EST , Pelvis X-Ray 06/10/23 23:23 IMPRESSION: No acute posttraumatic abnormality. Electronically Signed: Alyssa Curry MD at 0:21 EST , Thoracic Spine X-Ray 06/10/23 23:23 IMPRESSION: Multilevel degenerative thoracic spine changes and ligamentous ossifications. No convincing fracture or subluxation. Electronically Signed: Alyssa Curry MD at 0:23 EST , Discharge Plan Triage Chief Complaint: Fall Other Complaint: Back ED Provider: Genna Richter Dx/Rx/DC Orders Clinical Impression: Back pain, Fall Instructions: ED Back Pain (Acute or Chronic), ED Fall Prevention Prescriptions: No Action carbidopa-levodopa 1 TABLET tablet 1 tab PO Q4H PRN PRN (Reason: Spasms) Patient Comments: PARKINSONS ibuprofen 600 MG tablet 600 mg PO Q6H PRN PRN (Reason: Pain) Qty: 30 0RF cyclobenzaprine 10 MG tablet 10 mg PO TID PRN (Reason: Muscle Spasm) Qty: 20 0RF naproxen 500 MG tablet 500 mg PO BID PRN Qty: 20 0RF cyclobenzaprine 10 MG tablet 10 mg PO QHS PRN PRN (Reason: Muscle Spasm) Qty: 10 0RF Primary Care Provider: LEIGHANN DELGADO Referrals: LEIGHANN DELGADO [Other] Activity Restrictions/Additional Instructions: Take Tylenol as needed for pain up to every 4 hours. Do not take more than 3000 mg in 24 hours. Your x-ray and CT did not show any acute trauma. You likely will be sore over the next few days. Disposition Disposition: Home, Self Care Discharge Date/Time: 06/11/23 01:54
[2023-06-11] MEDS: Acetaminophen 500 MG Tablet PO
--- NOTE | 2023-06-11 01:16 | ED.RN ---
Pt ambulated several times from chair seated in hallway in triage area to triage desk to check on status. No difficulty with ambulation. Also ambulated from triage to room 9 without difficulty.
[2023-06-11 01:53] VITALS: BP 152/87; PULSE 87; RESP 19; O2SAT 99
== END 2023-06-11 01:54 | disposition home or self-care (01) ==
LOC: ED 22:38
PROVIDERS: Emergency Provider Emergency Medicine; Visit Provider Emergency Medicine
DX: M54.50 Low back pain, unspecified (principal); G20.A1 Parkinson's disease without dyskinesia, without mention of fluctuations; W19.XXXA Unspecified fall, initial encounter
CPT/HCPCS: 70450; 72072; 72100; 72170; 99283

== ENCOUNTER 2023-09-09 11:07 | Emergency (ER) | payer MEDICARE, SELFPAY ==
[2023-09-09 11:08] VITALS: BP 126/81; PULSE 77; RESP 14; TEMP 36.3; O2SAT 100
--- NOTE | 2023-09-09 11:22 | EX.ED.GENINJ ---
HPI History of Present Illness Chief Complaint: Head Injury Informant: patient Onset/Context/Timing Onset: Today Mechanism/Context: Fall and Slip Quality of Pain: Dull Location: Frontal scalp Worsened by: Nothing Relieved by: Nothing Associated Symptoms Associated Symptoms: Negative for Parasthesias, Weakness, Loss of function, Inability to ambulate, Loss of consciousness or Amnesia Narrative Narrative: Patient presents with a head injury that occurred today. Patient states he slipped in the mud and fell forward. Patient hit his head on concrete steps. Patient denies any loss of consciousness. Patient denies any paresthesias or weakness. Patient describes his pain as dull. Patient states it is localized to the frontal scalp. Patient states the bleeding stopped after several minutes of pressure. Patient is unsure of his last tetanus. Tetanus Immunization: Unknown [facility] Medical History (Updated 09/09/23 @ 13:[address] Luke Gil DO) Parkinson disease Presence of neurostimulator Home Medications carbidopa 25 mg-levodopa 100 mg tablet 1 tab PO Q4H PRN PRN Spasms 03/06/14 [History Last Taken 06/22/16 19:00] ibuprofen 600 mg tablet 600 mg PO Q6H PRN PRN Pain #30 tabs 10/13/18 [Rx Last Taken Unknown] cyclobenzaprine 10 mg tablet 10 mg PO TID PRN Muscle Spasm #20 tabs 12/16/18 [Rx Last Taken Unknown] naproxen 500 mg tablet 500 mg PO BID PRN #20 tabs 12/16/18 [Rx Last Taken Unknown] cyclobenzaprine 10 mg tablet 10 mg PO QHS PRN PRN Muscle Spasm #10 tabs 12/25/18 [Rx Last Taken Unknown] Allergy/AdvReac Type Severity Reaction Status Date / Time No Known Allergies Allergy Verified 09/09/23 11:12 Surgical History (Updated 09/09/23 @ 12:[address] Luke Gil DO) Hx of inguinal herniorrhaphy Social History Smoking Status: Never smoker ROS ROS ED Constitutional Constitutional ED: Denies chills or fever(s) Eyes Eyes: Denies blurry vision or change in vision ENT ENT ED: Denies rhinorrhea or sore throat Cardiovascular Cardiovascular: Denies chest pain or palpitations Respiratory/Chest Respiratory/Chest: Denies cough or dyspnea Gastrointestinal Gastrointestinal: Denies nausea or vomiting Genitourinary Genitourinary ED: Denies dysuria or hematuria Musculoskeletal Musculoskeletal: Reports back pain; Denies neck pain Integumentary Denies abscess or rash Neurologic Neurologic: Denies headache(s) or weakness Allergic/Immunologic Allergic/Immunologic ED: Denies mouth swelling or urticaria EXAM Physical Exam Const Vital Signs: 09/09/23 11:08 09/09/23 11:31 09/09/23 13:08 Temperature 97.3 F L 97.6 F L Temperature Source Temporal Temporal Pulse Rate 77 81 Respiratory Rate 14 16 Respiratory Effort Normal Non-Labored Respiratory Depth Normal Respiratory Pattern Normal Blood Pressure 126/81 H 135/79 H Blood Pressure Mean 96 97 Pulse Ox 100 96 98 Oxygen Delivery Method Room Air Room Air Room Air Positive well nourished and well developed General Appearance ED: well developed and NAD Neck full ROM General: Negative for tenderness Resp normal respiratory effort and clear to auscultation bilaterally Cardio regular rhythm Rate: regular rate GI non-tender and non-distended Palpation: soft Neuro oriented x3, CN's II-XII intact bilaterally, moves all extremities, no focal motor deficits and no sensory deficits noted Beatrice Coma Scale: document GCS findings Spontaneous Obeys Commands Oriented 15 Sensorium / Orientation: alert Motor Exam: strength 5/5 throughout Psych mental status grossly normal and thought process normal Skin Skin Narrative: There is a 3 cm full-thickness linear laceration over the frontal scalp. There is mild gapping of the wound margins. There is mild bleeding noted. There are no foreign bodies noted. There is no bony crepitance or step-off noted. There is minimal tenderness. PROC Procedures Lacerations Frontal scalp: Length: 3 cm Depth: Sub Q Shape: Linear Prep: Sterile Conditions and Chlorhexadine Laceration repair: Irrigated, Lidocaine with epi, Local and Wound explored Number of Sutures/Joya: 6 Suture Information: - ([place]) MDM MDM MDM Narrative Medical decision making narrative: Patient was given a tetanus booster. The wound was cleaned and irrigated with copious amounts of normal saline. The wound was anesthetized with 1% lidocaine with epinephrine locally. The wound was closed with 6 joya under sterile technique. Patient tolerated the procedure well. Bacitracin dressing was applied. Patient was instructed to follow-up with his primary care physician in 5 to 7 days for wound recheck and staple removal. Patient was also advised that he could return here for staple removal. Patient was instructed to return if worse in any way. Patient understood and was agreeable with the plan. All questions were answered. Discharge Plan Triage Chief Complaint: Head Injury ED Provider: Luke Gil Dx/Rx/DC Orders Clinical Impression: Head injury, Fall, Laceration of scalp Instructions: ED Laceration Scalp Stitches or Joya Prescriptions: No Action carbidopa-levodopa 1 TABLET tablet 1 tab PO Q4H PRN PRN (Reason: Spasms) Patient Comments: PARKINSONS ibuprofen 600 MG tablet 600 mg PO Q6H PRN PRN (Reason: Pain) Qty: 30 0RF cyclobenzaprine 10 MG tablet 10 mg PO TID PRN (Reason: Muscle Spasm) Qty: 20 0RF naproxen 500 MG tablet 500 mg PO BID PRN Qty: 20 0RF cyclobenzaprine 10 MG tablet 10 mg PO QHS PRN PRN (Reason: Muscle Spasm) Qty: 10 0RF Primary Care Provider: LEIGHANN DELGADO Referrals: LEIGHANN DELGADO [Other] - 7 Days for suture removal Disposition Disposition: Home, Self Care
[2023-09-09 11:30] VITALS: BMI 23.1
[2023-09-09 11:31] VITALS: O2SAT 96
[2023-09-09] MEDS: Lidocaine 1% /Epi 1:100 (20ml) 20 ML Vial INFILT (12:06)
[2023-09-09] MEDS: Diphth,Pertuss(Acell),Tet Vac 0.5 ML Vial IM (12:06)
--- NOTE | 2023-09-09 12:08 | ED.RN ---
PT MEDICATED PER EMS STUDENT
[2023-09-09 13:08] VITALS: BP 135/79; PULSE 81; RESP 16; TEMP 36.4; O2SAT 98
[2023-09-09 13:58] VITALS: BP 129/84; PULSE 82; RESP 15; TEMP 36.4; O2SAT 99
== END 2023-09-09 13:59 | disposition home or self-care (01) ==
PROVIDERS: Emergency Provider Emergency Medicine; Visit Provider Emergency Medicine
DX: S01.01XA Laceration without foreign body of scalp, initial encounter (principal); W01.0XXA Fall on same level from slipping, tripping and stumbling without subsequent striking against object, initial encounter
CPT/HCPCS: 12002; 90471; 90715; 99283

== ENCOUNTER 2024-04-19 18:13 | Emergency (ER) | payer MEDICARE, SELFPAY ==
[2024-04-19 18:14] VITALS: BP 152/96; PULSE 61; RESP 14; TEMP 36.6; O2SAT 98; BMI 24.5
[2024-04-19 21:08] VITALS: BP 175/114; PULSE 78; O2SAT 99
--- NOTE | 2024-04-19 21:10 | EKG12_ITS ---
Test Reason : HTN Blood Pressure : */* mmHG Vent. 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
--- NOTE | 2024-04-19 21:11 | EDS_ITS ---
HPI History of Present Illness Chief Complaint: Hypertension Detail of Chief Complaint: Hypertension Informant: patient Narrative Narrative: Patient presents to the emergency room with complaint of hypertension today. Patient states that his brother just bought a new blood pressure cuff and checked his own blood pressure and then checked the patient's blood pressure and noted that his systolic was elevated to 172. They were advised by friends to get evaluated. He is asymptomatic. He denies headache or neck pain or chest pain. Patient states that he gets his blood pressure checked about 4 times a month when he goes to a rehab center. Patient has Parkinson's. He is not on blood pressure medication. He states he has been under more stress of late as 1 of this family members has been upsetting him. [facility] Medical History (Updated 04/19/24 @ 22:[address] Fabio Benavides, DO) Presence of neurostimulator Parkinson disease Home Medications ?Medication ?Instructions ?Recorded ?Last Taken ?Type carbidopa 25 mg-levodopa 100 mg 1 tab PO Q4H PRN PRN Spasms 03/06/14 06/22/16 19:00 History tablet ibuprofen 600 mg tablet 600 mg PO Q6H PRN PRN Pain #30 tabs 10/13/18 Unknown Rx cyclobenzaprine 10 mg tablet 10 mg PO TID PRN Muscle Spasm #20 12/16/18 Unknown Rx tabs naproxen 500 mg tablet 500 mg PO BID PRN #20 tabs 12/16/18 Unknown Rx cyclobenzaprine 10 mg tablet 10 mg PO QHS PRN PRN Muscle Spasm 12/25/18 Unknown Rx #10 tabs Allergy/AdvReac Type Severity Reaction Status Date / Time No Known Allergies Allergy Verified 04/19/24 18:14 Surgical History Hx of inguinal herniorrhaphy Social History Smoking Status: Never smoker ROS ROS ED ROS Narrative Hypertension Review of Systems ROS Unobtainable: other Constitutional Constitutional ED: Reports lethargy; Denies chills, fever(s), sweats or weight loss Eyes Eyes: Denies blurry vision, change in vision or diplopia ENT ENT ED: Denies rhinorrhea or sore throat Cardiovascular Cardiovascular: Denies chest pain, orthopnea or racing heartbeat Respiratory/Chest Respiratory/Chest: Denies cough, dyspnea, dyspnea on exertion, orthopnea or sputum Gastrointestinal Gastrointestinal: Denies abdominal pain, diarrhea, nausea or vomiting Genitourinary Genitourinary ED: Denies dysuria, hematuria or urinary frequency Musculoskeletal Musculoskeletal: Denies arthralgias, back pain, myalgias or neck pain Integumentary Denies abscess, Abrasions or rash Neurologic Neurologic: Denies headache(s) or weakness Psychiatric Psychiatric: Denies anxiety, depression or suicidal thoughts Endocrine Endocrinology: Denies polydipsia, polyphagia or polyuria Hematologic/Lymphatic Hematologic/Lymphatic: Denies easy bleeding, easy bruising or lymphadenopathy Allergic/Immunologic Allergic/Immunologic ED: Denies mouth swelling, tongue swelling or urticaria EXAM Physical Exam Const Vital Signs: 04/19/24 18:14 04/19/24 21:04 04/19/24 21:08 Temperature 97.9 F Temperature Source Oral Pulse Rate 61 78 Respiratory Rate 14 Respiratory Effort Normal Respiratory Pattern Normal Blood Pressure 152/96 H 175/114 H Blood Pressure Mean 114 134 Pulse Ox 98 99 Oxygen Delivery Method Room Air Positive well nourished and well developed General Appearance ED: well developed and NAD HEENT Reports TM's clear and moist mucous membranes normocephalic and atraumatic; Negative for trauma or tenderness Tympanic Membrane ED: Yes TM's clear Eyes PERRL and EOMs intact bilaterally General Eye ED: Negative for pale conjunctiva or scleral icterus Neck no lymphadenopathy, supple and no JVD General: Negative for tenderness Chest Wall inspection of chest normal and palpation of chest normal Chest: Negative for tenderness Resp normal respiratory effort and clear to auscultation bilaterally Effort and Inspection: Negative for respiratory distress or pain with movement Auscultation: Negative for rhonchi, wheezes or diminished lung sounds Cardio regular rate, regular rhythm, S1 normal heart sound, S2 normal heart sound and no murmurs Peripheral Pulses: pulses 2+ throughout GI normal to inspection, nondistended, normoactive bowel sounds, soft to palpation, non-tender, non-distended and no masses Back/Spine no CVA tenderness and no thoracic nor lumbar tenderness Extremity normal to inspection General Extremety ED: Negative for edema General Extremity: Negative for edema Neuro oriented x3, CN's II-XII intact bilaterally, no sensory deficits noted and gait normal Sensorium / Orientation: awake, alert, oriented to person, oriented to place and oriented to time Motor Exam: strength 5/5 throughout and strength abnormal Psych mental status grossly normal Skin no rashes or lesions noted and no wounds MDM MDM MDM Narrative Medical decision making narrative: Patient presents with asymptomatic hypertension. Normally his blood pressure ranges in the 150s to 160s systolic. EKG obtained arrival shows sinus rhythm with ventricular rate of 69 bpm with no acute ST segment changes and evidence of old inferior infarct. CBC with differential, 6.0 with hemoglobin 14.8 and platelet count of 240. Chemistries unremarkable. Troponin normal at 3. Patient had a manual blood pressure performed and the systolic was in the 140s here. Initially when he arrived he was 152/96. At this point recommended that he just keep a journal of his blood pressures in the morning for a week and follow-up with primary care physician. Patient also has been under more stress of late. Will not currently start treatment and will defer to his primary care physician. Lab Data Attestation: I reviewed the patient's lab results. Labs: Laboratory Results - last 24 hr 04/19/24 21:35 WBC 6.0 RBC 4.95 Hgb 14.8 Hct 45.3 MCV 91.5 MCH 29.9 MCHC 32.7 RDW Std Deviation 42.5 RDW Coeff of Bambi 12.6 Plt Count 240 MPV 10.7 Immature Gran % (Auto) 0.700 Neut % (Auto) 69.4 Lymph % (Auto) 17.2 L [place] % (Auto) 8.6 Eos % (Auto) 3.3 Baso % (Auto) 0.8 Absolute Neuts (auto) 4.2 Absolute Lymphs (auto) 1.04 Nucleated RBC % 0 Sodium 140 Potassium 3.6 Chloride 108 H Carbon Dioxide 29.0 Anion Gap 3 L BUN 17 Creatinine 0.95 Estim Creat Clear Calc 67.16 Est GFR (MDRD) Af Amer 102 Est GFR (MDRD) Non-Af 84 BUN/Creatinine Ratio 18.0 Glucose 99 Calcium 8.6 Troponin I High Sens 3 EKG Initial EKG: Attestation: I personally reviewed and interpreted this EKG as follows: Comments: Sinus rhythm with ventricular rate of 69 bpm with old inferior infarct Discharge Plan Triage Chief Complaint: Hypertension ED Provider: Fabio Benavides Dx/Rx/DC Orders Clinical Impression: Hypertension Instructions: ED Hypertension, To Be Confirmed Prescriptions: No Action carbidopa-levodopa 1 TABLET tablet 1 tab PO Q4H PRN PRN (Reason: Spasms) Patient Comments: PARKINSONS ibuprofen 600 MG tablet 600 mg PO Q6H PRN PRN (Reason: Pain) Qty: 30 0RF cyclobenzaprine 10 MG tablet 10 mg PO TID PRN (Reason: Muscle Spasm) Qty: 20 0RF naproxen 500 MG tablet 500 mg PO BID PRN Qty: 20 0RF cyclobenzaprine 10 MG tablet 10 mg PO QHS PRN PRN (Reason: Muscle Spasm) Qty: 10 0RF Primary Care Provider: MIN HOLLIDAY Referrals: NOT,DEFINED [Non-Staff] - Activity Restrictions/Additional Instructions: Keep a record of your blood pressure daily taken in the morning. Follow-up with primary care physician in 5 to 7 days. Print Language: Estonian Disposition Disposition: Home, Self Care
[2024-04-19 21:30] VITALS: BP 152/84
[2024-04-19 21:43] LABS: Absolute Lymphocyte Count 1.04 X10^3/uL (0.83-4.51); Absolute Neutrophil Count 4.2 X10^3/uL (2.0-7.7); Basophil# 0.05 X10^3/uL; Basophil% 0.8 % (0-1); Eosinophils% 3.3 % (0-5); Hematocrit 45.3 % (40-54); Hemoglobin 14.8 g/dL (13.0-16.5); Lymphocyte # 1.04 X10^3/ul (0.83-4.51); Lymphocyte % 17.2 % (19-41); Mean Corp Hgb Conc 32.7 g/dL (32-36); Mean Corpuscular Hgb 29.9 pg (27.0-32.0); Mean Corpuscular Volume 91.5 fL (80-94); Mean Platelet Vol. 10.7 fl (6.2-12.0); Monocyte# 0.52 X10^3/uL; Monocyte% 8.6 % (0-10); NRBC Flagged by Analyzer 0 % (0-5); Neutrophil # 4.19 X10^3/uL (2.7-7.7); Neutrophil % 69.4 % (47-70); Platelet Count 240 K/mm3 (150-450); RBC Distribution Width CV 12.6 % (11.6-14.6); RBC Distribution Width SD 42.5 fl (35.1-43.9); Red Blood Count 4.95 M/mm3 (4.6-6.2)
[2024-04-19 22:01] LABS: Anion Gap 3 (5-15); BUN 17 mg/dL (7-18); Calcium,Total 8.6 mg/dL (8.5-10.1); Chloride 108 mmol/L (98-107); Creatinine, Serum 0.95 mg/dL (0.70-1.30); EST Glomerular Filtration Rate 84 mL/min (>60); Est Glom Filt Rate - Afr Amer 102 mL/min (>60); Estimated Creatinine Clearance 67.16 ml/min; Glucose 99 mg/dL (74-106); Potassium 3.6 mmol/L (3.5-5.1); Sodium Level 140 mmol/L (136-145); Troponin-I HS 3 pg/mL (3.0-78.0)
[2024-04-19 22:38] VITALS: BP 167/90; PULSE 85; RESP 18; TEMP 36.6; O2SAT 98
== END 2024-04-19 22:53 | disposition home or self-care (01) ==
PROVIDERS: Emergency Provider Emergency Medicine; Visit Provider Emergency Medicine
DX: I10 Essential (primary) hypertension (principal); G20.A1 Parkinson's disease without dyskinesia, without mention of fluctuations
CPT/HCPCS: 80048; 84484; 85025; 93005; 99283; A4216